=== PATIENT | female | born 1960 | race African-American/Black ===

== ENCOUNTER 2017-12-30 16:04 | Inpatient (IN) | payer OTHER, MEDICARE ==
--- NOTE | 2017-12-30 16:55 | ER Document Report ---
ED Medical Screen (RME) - General Chief Complaint: Probable Seizure Stated Complaint: POSSIBLE SEIZURE Time Seen by Provider: 12/30/17 16:30 TRAVEL OUTSIDE OF THE [place] IN LAST 30 DAYS: No - HPI Patient complains to provider of: Seizure Onset: Other - This 57-year-old female with a bizarre complex past medical history including stroke as well as seizures in the past and an amputation of her right lower extremity presents for evaluation of 2 seizures today with resultant inability to see out of both eyes. She denies any recent illnesses, is currently taking Tegretol for her seizures has not missed any doses according to her. Had a visual disturbance after a previous CVA back in June. - Related Data Allergies/Adverse Reactions: No Known Allergies Allergy (Verified 12/30/17 16:11) Past Medical History - Social History Chew tobacco use (# tins/day): No Frequency of alcohol use: Occasional Drug Abuse: Marijuana - Past Medical History Cardiac Medical History: Reports: Hx Hypercholesterolemia, Hx Hypertension, Hx Peripheral Vascular Disease Denies: Hx Atrial Fibrillation, Hx Congestive Heart Failure, Hx Coronary Artery Disease, Hx Heart Attack, Hx Heart Murmur Pulmonary Medical History: Denies: Hx Tuberculosis Neurological Medical History: Reports: Hx Cerebrovascular Accident, Hx Seizures Endocrine Medical History: Reports: Hx Diabetes Mellitus Type 2 Renal/ Medical History: Denies: Hx Peritoneal Dialysis Malignancy Medical History: Denies: Hx Leukemia Musculoskeltal Medical History: Reports Hx Arthritis - rheumatoid-dr. dover, Denies Hx Fibromyalgia, Denies Hx Multiple Sclerosis, Denies Hx Muscular Dystrophy Psychiatric Medical History: Denies: Hx Bipolar Disorder, Hx Dementia, Hx Depression, Hx Post Traumatic Stress Disorder, Hx Schizophrenia Traumatic Medical History: Denies: Hx Fractures Infectious Medical History: Denies: Hx HIV Past Surgical History: Reports: Hx Hysterectomy, Hx Orthopedic Surgery - 06/2010 right leg, above knee amputation. Denies: Hx Pacemaker - Immunizations Hx Diphtheria, Pertussis, Tetanus Vaccination: Yes Physical Exam - Vital signs Vitals: Temp Pulse BP Pulse Ox 98.9 F 92 170/105 H 100 12/30/17 16:14 12/30/17 16:14 12/30/17 16:14 12/30/17 16:14 Course - Re-evaluation Re-evalutation: 12/30/17 16:54 57-year-old female with a history of multiple seizures today and resultant inability to see. She is no obvious perception of confrontation, her light perception is 0. Has not history however, given the concern for potential underlying CVA or conversion will plan for workup. Patient undergo CT of the head, labs EKG etc. We will plan for further investigation and more thorough neurologic examination. I performed a rapid medical screening examination on this patient will defer further disposition determination workup and labs to next provider. - Vital Signs Vital signs: Temp Pulse Resp BP Pulse Ox 98.9 F 93 185/101 H 100 12/30/17 16:14 12/30/17 16:16 12/30/17 16:16 12/30/17 16:16 Doctor's Discharge - Discharge Referrals: JERZY GAINES MD [Primary Care Provider] - Follow up as needed
[2017-12-30 17:18] LABS: ABSOLUTE BASOPHILS # (AUTO) 0.1 10^3/uL (0.0-0.2); ABSOLUTE EOSINOPHILS # (AUTO) 0.1 10^3/uL (0.0-0.6); ABSOLUTE LYMPHOCYTES (AUTO) 4.1 10^3/uL (0.5-4.7); ABSOLUTE MONOCYTES (AUTO) 0.6 10^3/uL (0.1-1.4); ABSOLUTE NEUT (AUTO) 4.7 10^3/uL (1.7-8.2); BASOPHILS % (AUTO) 1.1 % (0-2); HEMATOCRIT 43.6 % (36.0-47.0); HEMOGLOBIN 14.5 g/dL (12.0-15.5); LYMPHOCYTES % (AUTO) 43.1 % (13-45); MEAN CORPUSCULAR HEMOGLOBIN 27.2 pg (27.0-33.4); MEAN CORPUSCULAR HGB CONC 33.2 g/dL (32.0-36.0); MEAN CORPUSCULAR VOLUME 82 fl (80-97); MONOCYTES % (AUTO) 6.2 % (3-13); PLATELET COUNT 295 10^3/uL (150-450); RED BLOOD COUNT 5.33 10^6/uL (3.72-5.28); RED CELL DISTRIBUTION WIDTH 14.4 % (11.5-14.0); SEGMENTED NEUTROPHILS % (AUTO) 48.6 % (42-78); TOTAL CELLS COUNTED % (AUTO) 100 %; WHITE BLOOD COUNT 9.6 10^3/uL (4.0-10.5)
--- NOTE | 2017-12-30 17:18 | RADIOLOGY REPORT (SQ) ---
EXAM DESCRIPTION: CT HEAD WITHOUT COMPLETED DATE/TIME: 12/30/2017 4:54 pm REASON FOR STUDY: visual disturbance COMPARISON: 02/05/2016 TECHNIQUE: Axial images acquired through the brain without intravenous contrast. Images reviewed wi th bone, brain and subdural windows. Additional sagittal and coronal reconstructions were generated. Images stored on PACS. All CT scanners at this facility use dose modulation, iterative reconstruction, and/or weight based d osing when appropriate to reduce radiation dose to as low as reasonably achievable (ALARA). [facility]: Dose Right [facility]: CareDose [facility]: Dose Right [facility]: Teradose 4D [facility]: [employer] RADIATION DOSE: CT Rad equipment meets quality standard of care and radiation dose reduction techniq ues were employed. CTDIvol: 53.2 mGy. DLP: 1044 mGy-cm. mGy. LIMITATIONS: None. FINDINGS: VENTRICLES: Normal size and contour. CEREBRUM: Large old infarct right occipital region. Interval development of a 3 cm area decreased at tenuation medial aspect of the left occipital lobe not present on the previous CT scan of 2016 and ma y represent an evolving infarct. No intracranial hemorrhage or mass-effect. CEREBELLUM: No masses. No hemorrhage. No alteration of density. No evidence for acute infarction. EXTRAAXIAL SPACES: No fluid collections. No masses. ORBITS AND GLOBE: No intra- or extraconal masses. Normal contour of globe without masses. CALVARIUM: No fracture. PARANASAL SINUSES: No fluid or mucosal thickening. SOFT TISSUES: No mass or hematoma. OTHER: No other significant finding. IMPRESSION: 3 cm area of slightly decreased attenuation involving the medial aspect of the left occi pital lobe that may represent an evolving infarct particularly when correlated with clinical informa tion. Stable large right occipital lobe infarct. EVIDENCE OF ACUTE STROKE: NO. COMMENT: Quality ID # [id number]: Final reports with documentation of one or more dose reduction techniques (e.g., Automated exposure control, adjustment of the mA and/or kV according to patient size, use of iterative reconstruction technique) TECHNICAL DOCUMENTATION: JOB ID: [id number] [employer]- All Rights Reserved Reading location - IP/workstation name: [email or web address]
[2017-12-30 17:37] LABS: ALANINE AMINOTRANSFERASE 31 U/L (9-52); ALBUMIN 4.5 g/dL (3.5-5.0); ALKALINE PHOSPHATASE 98 U/L (38-126); ANION GAP 13 (5-19); ASPARTATE AMINO TRANSFERASE 26 U/L (14-36); BILIRUBIN,DIRECT 0.2 mg/dL (0.0-0.4); BILIRUBIN,TOTAL 0.5 mg/dL (0.2-1.3); BLOOD UREA NITROGEN 11 mg/dL (7-20); CALCIUM 10.1 mg/dL (8.4-10.2); CARBON DIOXIDE 30 mmol/L (22-30); CHLORIDE 98 mmol/L (98-107); GLUCOSE 233 mg/dL (75-110); POTASSIUM 3.3 mmol/L (3.6-5.0); SODIUM 140.8 mmol/L (137-145); TOTAL PROTEIN 7.4 g/dL (6.3-8.2)
--- NOTE | 2017-12-30 18:15 | EKG REPORT ---
SEVERITY:- ABNORMAL ECG - SINUS RHYTHM LEFT ANTERIOR FASCICULAR BLOCK LEFT VENTRICULAR HYPERTROPHY ANTERIOR Q WAVES, POSSIBLY DUE TO LVH : Confirmed by: Marlen Mendoza MD 30-Dec-2017 18:14:11
[2017-12-30] MEDS ORDERED: NORMAL SALINE 1000 ML 1,000 ML IV ONE (18:54)
[2017-12-30 19:23] LABS: INTERNATIONAL RATION (INR) 0.79; PROTHROMBIN TIME 11.4 SEC (11.4-15.4)
[2017-12-30 19:24] LABS: PARTIAL THROMBOPLASTIN TIME 27.6 SEC (23.5-35.8)
[2017-12-30 20:20] LABS: APPEARANCE,URINE SLIGHTLY-CLOUDY; BILIRUBIN,URINE NEGATIVE (NEGATIVE); COLOR,URINE YELLOW; GLUCOSE, URINE 50 mg/dL (NEGATIVE); KETONES,URINE TRACE mg/dL (NEGATIVE); LEUKOCYTE ESTERASE,URINE NEGATIVE (NEGATIVE); NITRITE,URINE NEGATIVE (NEGATIVE); PROTEIN,URINE NEGATIVE (NEGATIVE); URINE SPECIFIC GRAVITY 1.024
[2017-12-30] MEDS ORDERED: ASPIRIN 81 MG TABLET, CHEWABLE PO ONE (20:26)
[2017-12-30] MEDS ORDERED: HYDRALAZINE HCL 50 MG TABLET PO ONE (20:26)
[2017-12-30] MEDS ORDERED: AMLODIPINE BESYLATE 5 MG TABLET PO ONE (20:30)
[2017-12-30 20:38] LABS: URINE AMPHETAMINES SCREEN NEGATIVE; URINE BARBITURATES SCREEN NEGATIVE; URINE BENZODIAZEPINES SCREEN NEGATIVE; URINE COCAINE SCREEN NEGATIVE; URINE MARIJUANA (THC) SCREEN UNCONFIRMED POSITIVE; URINE METHADONE SCREEN NEGATIVE; URINE PHENCYCLIDINE SCREEN NEGATIVE
--- NOTE | 2017-12-30 20:41 | ER Document Report ---
ED General - General Chief Complaint: Probable Seizure Stated Complaint: POSSIBLE SEIZURE Time Seen by Provider: 12/30/17 16:30 TRAVEL OUTSIDE OF THE [place] IN LAST 30 DAYS: No - HPI Patient complains to provider of: Seizure loss of vision Notes: Patient coming in complaining that she had 2 seizures today. Patient does have a history of seizures along with diabetes and hypertension. Patient states she has been compliant with her medications. Patient states she has had visual disturbances ongoing for the last 24-48 hours. Patient states similar symptoms of vision loss when she had strokes in the past. Patient denies any fevers chills nausea vomiting diarrhea. Patient is resting comfortably upon my evaluation. Denies any trauma - Related Data Allergies/Adverse Reactions: No Known Allergies Allergy (Verified 12/30/17 16:11) Past Medical History - Social History Smoking Status: Never Smoker Chew tobacco use (# tins/day): No Frequency of alcohol use: Occasional Drug Abuse: Marijuana Family History: Reviewed & Not Pertinent Patient has suicidal ideation: No Patient has homicidal ideation: No - Past Medical History Cardiac Medical History: Reports: Hx Hypercholesterolemia, Hx Hypertension, Hx Peripheral Vascular Disease Denies: Hx Atrial Fibrillation, Hx Congestive Heart Failure, Hx Coronary Artery Disease, Hx Heart Attack, Hx Heart Murmur Pulmonary Medical History: Denies: Hx Tuberculosis Neurological Medical History: Reports: Hx Cerebrovascular Accident, Hx Seizures Endocrine Medical History: Reports: Hx Diabetes Mellitus Type 2 Renal/ Medical History: Denies: Hx Peritoneal Dialysis Malignancy Medical History: Denies: Hx Leukemia Musculoskeletal Medical History: Reports Hx Arthritis - rheumatoid-dr. dover, Denies Hx Fibromyalgia, Denies Hx Multiple Sclerosis, Denies Hx Muscular Dystrophy Psychiatric Medical History: Denies: Hx Bipolar Disorder, Hx Dementia, Hx Depression, Hx Post Traumatic Stress Disorder, Hx Schizophrenia Traumatic Medical History: Denies: Hx Fractures Infectious Medical History: Denies: Hx HIV Past Surgical History: Reports: Hx Hysterectomy, Hx Orthopedic Surgery - 06/2010 right leg, above knee amputation. Denies: Hx Pacemaker - Immunizations Hx Diphtheria, Pertussis, Tetanus Vaccination: Yes Hx Pneumococcal Vaccination: 03/31/14 Review of Systems - Review of Systems Constitutional: No symptoms reported EENT: Other - Vision loss Cardiovascular: No symptoms reported Respiratory: No symptoms reported Gastrointestinal: No symptoms reported Genitourinary: No symptoms reported Female Genitourinary: No symptoms reported Musculoskeletal: No symptoms reported Skin: No symptoms reported Hematologic/Lymphatic: No symptoms reported Neurological/Psychological: Seizure -: Yes All other systems reviewed and negative Physical Exam - Vital signs Vitals: Temp Pulse BP Pulse Ox 98.9 F 92 170/105 H 100 12/30/17 16:14 12/30/17 16:14 12/30/17 16:14 12/30/17 16:14 Interpretation: Normal - General General appearance: Appears well, Alert - HEENT Head: Normocephalic, Atraumatic Eyes: Normal Conjunctiva: Normal Cornea: Normal Extraocular movements intact: Yes Eyelashes: Normal Pupils: PERRL Neck: Normal Notes: Patient stating that she has had vision loss which is new for her. Patient has no blinking with threatening moves no blinking with putting my hand close or finger close to the patient's eyes or face. - Respiratory Respiratory status: No respiratory distress Chest status: Nontender Breath sounds: Normal Chest palpation: Normal - Cardiovascular Rhythm: Regular Heart sounds: Normal auscultation Murmur: No - Abdominal Inspection: Normal Distension: No distension Bowel sounds: Normal Tenderness: Nontender Organomegaly: No organomegaly - Back Back: Normal, Nontender - Extremities General upper extremity: Normal inspection, Nontender, Normal color, Normal ROM , Normal temperature General lower extremity: Nontender, Tender, Edema, Normal color, Normal strength. No: Normal inspection - bka right - Neurological Neuro grossly intact: Yes Cognition: Normal Orientation: AAOx4 Freddy Coma Scale Eye Opening: Spontaneous Freddy Coma Scale Verbal: Oriented [place] Coma Scale Motor: Obeys Commands Freddy Coma Scale Total: 15 Speech: Normal Motor strength normal: LUE, RUE, LLE, RLE Sensory: Normal - Psychological Associated symptoms: Normal affect, Normal mood - Skin Skin Temperature: Warm Skin Moisture: Dry Skin Color: Normal Course - Re-evaluation Re-evalutation: 12/31/17 02:21 CT scan shows signs of a possible acute stroke. Patient's symptoms ongoing for greater than 24 hours not a candidate for thrombolytic therapy or clot retrieval. The explained this to the patient. Patient states compliance with her medications however patient's carbamazepine level is undetectable blood pressure does not look to be very well controlled at this time. Amlodipine and hydralazine were given to the patient. Discussed with PCP states the patient has a well-known history of noncompliance of medication regimen agrees to admit the patient to the [facility] for further evaluation. - Vital Signs Vital signs: Temp Pulse Resp BP Pulse Ox 97.3 F 80 18 171/87 H 100 12/30/17 22:33 12/31/17 00:00 12/31/17 00:00 12/31/17 00:00 12/31/17 00:00 - Laboratory Result Diagrams: 12/30/17 17:00 12/30/17 17:00 Laboratory results interpreted by me: 12/30/17 12/30/17 12/30/17 17:00 17:00 17:00 RBC 5.33 H RDW 14.4 H Potassium 3.3 L Glucose 233 H TSH 0.35 L Urine Glucose (UA) Urine Ketones Urine Urobilinogen Carbamazepine 12/30/17 12/30/17 19:00 20:07 RBC RDW Potassium Glucose TSH Urine Glucose (UA) 50 H Urine Ketones TRACE H Urine Urobilinogen 4.0 H Carbamazepine < 2.1 L Discharge - Discharge Clinical Impression: Acute CVA left occipital lobe, Family history of brain aneurysm, Amputation of right lower extremity below knee, Patient's noncompliance with other medical treatment and regimen Hypertension Qualifiers: Hypertension type: essential hypertension Qualified Code(s): I10 - Essential ( primary) hypertension Diabetes Qualifiers: Diabetes mellitus type: type 1 Diabetes mellitus complication status: without complication Qualified Code(s): E10.9 - Type 1 diabetes mellitus without complications Condition: Good Disposition: ADMITTED INPATIENT Admitting Provider: [facility] Admitted: [facility]
--- NOTE | 2017-12-30 21:23 | RADIOLOGY REPORT (SQ) ---
PROCEDURE: XR CHEST 1 VIEW HISTORY: cva COMPARISON: None TECHNIQUE: The study was done on 12/30/2017 at 9:07 PM Single projection of the chest was done. FINDINGS: Atherosclerotic changes are seen in the thoracic aorta . There are no discrete airspace infiltrates, pneumothoraces or pleural effusions. The pulmonary vascularity is normal. The cardiomediastinal silhouette is otherwise unremarkable. IMPRESSION: There is no acute pleural-parenchymal process seen in the imaged lung albarado. Location of Interpretation: [facility]
[2017-12-30] MEDS ORDERED: LABETALOL HCL INJ 20 MG/4 ML DISP.SYRIN IV PRN (21:33)
[2017-12-30] MEDS ORDERED: GLUCAGON,HUMAN RECOMB 1 MG INJ IM PRN (21:48)
[2017-12-30] MEDS ORDERED: DEXTROSE 50%-WATER 25 GM/50 ML DISP.SYRIN IV PRN ×2 (21:48)
[2017-12-30] MEDS ORDERED: DEXTROSE 40% GEL 15 GM TUBE PO PRN ×2 (21:48)
[2017-12-30 21:56] LABS: LIPASE 250.8 U/L (23-300)
[2017-12-30] MEDS ORDERED: ATORVASTATIN CALCIUM 80 MG TABLET PO SCH (22:00)
[2017-12-30 22:14] LABS: FREE T4 (FREE THYROXINE) 1.24 ng/dL (0.78-2.19)
[2017-12-30 22:28] LABS: THYROID STIMULATING HORMONE 0.35 uIU/mL (0.47-4.68)
[2017-12-30] MEDS: ENOXAPARIN SODIUM INJ 40 MG/0.4 ML DISP.SYRIN SUBCUT SCH (22:53)
[2017-12-30] MEDS: ASPIRIN/DIPYRIDAMOLE 25-200 MG 1 CAP.SR CPMP.12HR PO SCH (22:53)
[2017-12-31] MEDS ORDERED: POTASSIUM CHLORIDE 10 MEQ CAPSULE.ER PO ONE (00:05)
[2017-12-31] MEDS ORDERED: DIPHENOXYLATE HCL/ATROP SULF 2.5-0.025 MG TABLET PO PRN (01:10)
[2017-12-31] MEDS ORDERED: OXYCODONE-ACETAMINOPHEN 5-325 MG TABLET PO PRN (01:10)
[2017-12-31 01:14] LABS: CREATINE KINASE MB 0.92 ng/mL (<4.55); TROPONIN I 0.013 ng/mL
[2017-12-31 06:27] LABS: HEMATOCRIT 41.4 % (36.0-47.0); HEMOGLOBIN 13.6 g/dL (12.0-15.5); MEAN CORPUSCULAR HEMOGLOBIN 26.9 pg (27.0-33.4); MEAN CORPUSCULAR HGB CONC 32.9 g/dL (32.0-36.0); MEAN CORPUSCULAR VOLUME 82 fl (80-97); PLATELET COUNT 236 10^3/uL (150-450); RED BLOOD COUNT 5.07 10^6/uL (3.72-5.28); RED CELL DISTRIBUTION WIDTH 14.4 % (11.5-14.0); WHITE BLOOD COUNT 12.6 10^3/uL (4.0-10.5)
[2017-12-31 06:41] LABS: ANION GAP 10 (5-19); BLOOD UREA NITROGEN 12 mg/dL (7-20); CALCIUM 9.5 mg/dL (8.4-10.2); CARBON DIOXIDE 27 mmol/L (22-30); CHLORIDE 103 mmol/L (98-107); CREATINE KINASE 788 U/L (30-135); GLUCOSE 254 mg/dL (75-110); POTASSIUM 3.4 mmol/L (3.6-5.0); SODIUM 139.6 mmol/L (137-145)
--- NOTE | 2017-12-31 06:47 | EKG REPORT ---
SEVERITY:- ABNORMAL ECG - SINUS TACHYCARDIA LEFT ANTERIOR FASCICULAR BLOCK LVH WITH SECONDARY REPOLARIZATION ABNORMALITY ANTERIOR Q WAVES, POSSIBLY DUE TO LVH BORDERLINE PROLONGED QT INTERVAL : Confirmed by: Marlen Mendoza MD 31-Dec-2017 06:46:39
[2017-12-31 06:53] LABS: CREATINE KINASE MB 1.16 ng/mL (<4.55); TROPONIN I 0.036 ng/mL
[2017-12-31] MEDS: SITAGLIPTIN PHOSPHATE 50 MG TABLET PO SCH ×2 (08:25→17:07)
[2017-12-31] MEDS: INSULIN REG, HUMAN 100 UNIT/ML 3 ML VIAL (PYX) SUBCUT PRN ×3 (08:25→17:07)
[2017-12-31] MEDS: PIOGLITAZONE HCL 15 MG TABLET PO SCH (08:25)
[2017-12-31] MEDS: METFORMIN HCL 500 MG TABLET PO SCH ×2 (08:25→17:07)
[2017-12-31] MEDS ORDERED: LOSARTAN POTASSIUM 50 MG TABLET PO SCH (10:00)
[2017-12-31] MEDS ORDERED: CLOPIDOGREL BISULFATE 75 MG TABLET PO SCH (10:00)
[2017-12-31] MEDS ORDERED: ASPIRIN 81 MG TABLET, CHEWABLE PO SCH (10:00)
[2017-12-31] MEDS: HYDRALAZINE HCL 50 MG TABLET PO SCH ×3 (10:05→22:56)
[2017-12-31] MEDS: METOPROLOL SUCCINATE 50 MG TAB.SR.24H PO SCH (10:09)
[2017-12-31] MEDS: AMLODIPINE BESYLATE 10 MG TABLET PO SCH (10:09)
[2017-12-31] MEDS: HYDROCHLOROTHIAZIDE 25 MG TABLET PO SCH (10:09)
[2017-12-31] MEDS: LOSARTAN POTASSIUM 50 MG TABLET PO SCH (10:09)
[2017-12-31] MEDS: ASPIRIN/DIPYRIDAMOLE 25-200 MG 1 CAP.SR CPMP.12HR PO SCH ×2 (10:30→22:55)
[2017-12-31] MEDS: OXCARBAZEPINE 150 MG TABLET PO SCH ×2 (10:31→17:07)
[2017-12-31] MEDS: ENOXAPARIN SODIUM INJ 40 MG/0.4 ML DISP.SYRIN SUBCUT SCH (10:31)
[2017-12-31] MEDS: CEPHALEXIN 500 MG CAPSULE PO SCH ×2 (10:38→17:07)
--- NOTE | 2017-12-31 11:51 | RADIOLOGY REPORT (SQ) ---
EXAM DESCRIPTION: MRI HEAD WITHOUT COMPLETED DATE/TIME: 12/31/2017 11:28 am REASON FOR STUDY: cva COMPARISON: 03/23/2014 TECHNIQUE: Multiplanar imaging includes non-contrasted T1, T2, FLAIR, and diffusion with ADC map seq uences. Images stored on PACS. LIMITATIONS: None. 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 CSF SPACES: Atrophy induced prominence of ventricles and CSF spaces. CEREBRUM: Old right occipital infarct. Smaller acute left occipital infarct. No evidence of hemorrh age or significant mass effect. No evidence of hemorrhage, mass, or extraaxial fluid collection. POSTERIOR FOSSA: No signal alteration. No hemorrhage. No edema, masses or mass effect. Internal edin tory canals, cerebello-pontine angles, mastoids normal. DIFFUSION IMAGING: Positive diffusion left occipital lobe. ORBITS: No masses. Globes normal. PARANASAL SINUSES: No fluid levels. Mucosa normal. OTHER: No other significant finding. IMPRESSION: Acute, nonhemorrhagic infarct left occipital lobe. EVIDENCE OF ACUTE STROKE: YES. 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 TECHNICAL DOCUMENTATION: JOB ID: [id number] [employer]- All Rights Reserved Reading location - IP/workstation name: [email or web address]
[2017-12-31 14:06] LABS: CREATINE KINASE MB 1.3 ng/mL (<4.55); TROPONIN I 0.027 ng/mL
--- NOTE | 2017-12-31 20:27 | PDOC H&P ---
History of Present Illness Admission Date/PCP: 12/30/17 20:45 JERZY GAINES MD History of Present Illness: KRISTINE HERNANDEZ is a 57 year old female, She has a history of CVA that involved the right occipital lobe associated with loss of vision couple of years ago, this patient is extremely noncompliant, she has not been to the office for follow-up in 2 years, she has a history of poorly controlled hypertension, type 2 diabetes mellitus,The hemoglobin A1c is 9.6, a reflection of poorly controlled diabetes mellitus. She came to the emergency room for evaluation of visual loss, in the emergency room CT head was done, it demonstrated acute left occipital infarct, there is old right occipital infarct.There is right below-knee amputation.She has old right occipital infarct Past Medical History Cardiac Medical History: Reports: Hyperlipidema, Hypertension, Peripheral Vascular Disease Neurological Medical History: Reports: Seizures Endocrine Medical History: Reports: Diabetes Mellitus Type 2 Musculoskeltal Medical History: Reports: Arthritis - rheumatoid-dr. dover Past Surgical History Past Surgical History: Reports: Amputation - right above the knee, Hysterectomy , Orthopedic Surgery - 06/2010 right leg, above knee amputation Social History Smoking Status: Never Smoker Frequency of Alcohol Use: Rare Hx Recreational Drug Use: Yes Drugs: Marijuana Hx Prescription Drug Abuse: No - Advance Directive Resuscitation Status: Full Code Family History Family History: Reviewed & Not Pertinent Parental Family History Reviewed: Yes Children Family History Reviewed: Yes Sibling(s) Family History Reviewed.: Yes Medication/Allergy Home Medications: Amlodipine Besylate [Norvasc 10 mg Tablet] 10 mg PO DAILY 12/31/17 Aspirin [Adult Low Dose Aspirin EC] 81 mg PO DAILY 12/31/17 Atenolol [Tenormin 50 mg Tablet] 50 mg PO DAILY 12/31/17 Atorvastatin Calcium [Lipitor 80 mg Tablet] 80 mg PO QHS 12/31/17 Clopidogrel Bisulfate [Plavix 75 mg Tablet] 75 mg PO DAILY 12/31/17 Diphenoxylate HCl/Atropine [Lomotil 2.5-0.025 mg Tablet] 1 tab PO QIDP PRN 12/31 Hydralazine HCl 100 mg PO BID 12/31/17 Metformin HCl [Glucophage 500 mg Tablet] 1,000 mg PO BID 12/31/17 Metoprolol Succinate [Toprol XL 200 mg Tablet] 200 mg PO DAILY 12/31/17 Olmesartan/Hydrochlorothiazide [Benicar Hct 40-25 mg Tablet] 1 tab PO DAILY 02/07 Oxcarbazepine [Trileptal] 300 mg PO BID MDD TAKE WITH 600MG 12/31/17 Oxcarbazepine [Trileptal] 600 mg PO BID MDD TAKE WITH 300MG 12/31/17 Pioglitazone HCl [Actos 15 mg Tablet] 15 mg PO DAILY 12/31/17 Sitagliptin Phosphate [Januvia] 100 mg PO DAILY 12/31/17 Allergies/Adverse Reactions: No Known Allergies Allergy (Verified 12/30/17 16:11) Review of Systems Constitutional: ABSENT: chills, fever(s), headache(s), weight gain, weight loss Eyes: PRESENT: visual disturbances Ears: ABSENT: hearing changes Cardiovascular: ABSENT: chest pain, dyspnea on exertion, edema, orthropnea, palpitations Respiratory: ABSENT: cough, hemoptysis Gastrointestinal: ABSENT: abdominal pain, constipation, diarrhea, hematemesis, hematochezia, nausea, vomiting Genitourinary: ABSENT: dysuria, hematuria Musculoskeletal: ABSENT: joint swelling Integumentary: ABSENT: rash, wounds Neurological: ABSENT: abnormal gait, abnormal speech, confusion, dizziness, focal weakness, syncope Psychiatric: ABSENT: anxiety, depression, homidical ideation, suicidal ideation Endocrine: ABSENT: cold intolerance, heat intolerance, menstrual abnormalities, polydipsia, polyuria Hematologic/Lymphatic: ABSENT: easy bleeding, easy bruising, lymphadenopathy Physical Exam Vital Signs: Temp Pulse Resp BP Pulse Ox 98.9 F 109 H 16 157/93 H 100 12/31/17 15:46 12/31/17 16:00 12/31/17 16:00 12/31/17 16:00 12/31/17 16:00 Intake & Output 12/30/17 12/31/17 01/01/18 06:59 06:59 06:59 Intake Total 1000 888 Output Total 650 100 Balance 350 788 Weight 75.5 kg General appearance: PRESENT: no acute distress, well-developed, well-nourished Head exam: PRESENT: atraumatic, normocephalic Eye exam: PRESENT: conjunctiva pink, EOMI, PERRLA Ear exam: PRESENT: normal external ear exam Mouth exam: PRESENT: moist, tongue midline Neck exam: PRESENT: full ROM Respiratory exam: PRESENT: clear to auscultation sheri Cardiovascular exam: PRESENT: RRR, +S1, +S2 GI/Abdominal exam: PRESENT: normal bowel sounds, soft Rectal exam: PRESENT: deferred Extremities exam: PRESENT: right BKA Neurological exam: PRESENT: alert, other Skin exam: PRESENT: dry, intact, warm. ABSENT: cyanosis, rash Results Laboratory Results: 12/31/17 06:20 12/31/17 06:20 12/31/17 12/31/17 06:20 06:20 WBC 12.6 H RBC 5.07 Hgb 13.6 Hct 41.4 MCV 82 MCH 26.9 L MCHC 32.9 RDW 14.4 H Plt Count 236 Sodium 139.6 Potassium 3.4 L Chloride 103 Carbon Dioxide 27 Anion Gap 10 BUN 12 Creatinine 0.50 L Est GFR ( Amer) > 60 Est GFR (Non-Af Amer) > 60 Glucose 254 H Calcium 9.5 Magnesium 1.6 12/31/17 12/31/17 12/31/17 00:16 00:16 06:20 Creatine Kinase 920 H 788 H CK-MB (CK-2) 0.92 Troponin I 0.013 12/31/17 12/31/17 12/31/17 06:20 13:09 13:09 Creatine Kinase 611 H CK-MB (CK-2) 1.16 1.30 Troponin I 0.036 0.027 Impressions: Head CT 12/30/17 16:41 IMPRESSION: 3 cm area of slightly decreased attenuation involving the medial aspect of the left occipital lobe that may represent an evolving infarct particularly when correlated with clinical information. Stable large right occipital lobe infarct. EVIDENCE OF ACUTE STROKE: NO. Chest X-Ray 12/30/17 20:39 IMPRESSION: There is no acute pleural-parenchymal process seen in the imaged lung albarado. Location of Interpretation: [facility]iology Head MRI 12/31/17 00:00 IMPRESSION: Acute, nonhemorrhagic infarct left occipital lobe. EVIDENCE OF ACUTE STROKE: YES. 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 Is this a current diagnosis for this admission?: Yes Plan: She has cortical blindness,, she has a history of cortical blindness when she sustained stroke of the right occipital lobe years ago, she was able to regained vision back at the time (4) Type 2 diabetes mellitus Qualifiers: Diabetes mellitus [facility] insulin use: unspecified technician terminal and repeater insulin use status Diabetes mellitus complication status: with neurologic complications Diabetes mellitus complication detail: with polyneuropathy Qualified Code(s): E11.42 - Type 2 diabetes mellitus with diabetic polyneuropathy Is this a current diagnosis for this admission?: Yes Plan: Patient is extremely noncompliant (5) Hypertensive emergency Is this a current diagnosis for this admission?: Yes Plan: We will allow for permissive hypertension in the first 24 hours unless blood pressure is more than 240 systolic
[2017-12-31] MEDS ORDERED: (PENDING PHARMACY ID) (Metoprolol Succinate [Toprol Xl 200 Mg Tablet] 200 MG) PO SCH (20:30)
[2017-12-31] MEDS ORDERED: (PENDING PHARMACY ID) (Hydralazine Hcl [Hydralazine Hcl] 100 MG) PO SCH (20:30)
[2017-12-31] MEDS ORDERED: (PENDING PHARMACY ID) (Oxcarbazepine [Trileptal] 600 MG) PO SCH (20:30)
[2017-12-31] MEDS ORDERED: (PENDING PHARMACY ID) (Olmesartan/Hydrochlorothiazide [Benicar Hct 40-25 Mg Tablet] 1 TAB) PO SCH (20:30)
[2017-12-31] MEDS ORDERED: PIOGLITAZONE HCL 15 MG TABLET PO SCH (20:30)
[2017-12-31] MEDS ORDERED: (PENDING PHARMACY ID) (Oxcarbazepine [Trileptal] 300 MG) PO SCH (20:30)
--- NOTE | 2017-12-31 20:37 | PDOC PROGRESS REPORT ---
Subjective Progress Note for:: 12/31/17 Subjective:: Patient seen by the bedside, she has loss of vision Reason For Visit: ACUTE CVA, NON COMPLIANCE, LAST OFFICE VISIT Physical Exam Vital Signs: Temp Pulse Resp BP Pulse Ox 98.9 F 109 H 16 157/93 H 100 12/31/17 15:46 12/31/17 16:00 12/31/17 16:00 12/31/17 16:00 12/31/17 16:00 Intake & Output 12/30/17 12/31/17 01/01/18 06:59 06:59 06:59 Intake Total 1000 888 Output Total 650 100 Balance 350 788 Weight 75.5 kg General appearance: PRESENT: no acute distress Eye exam: PRESENT: PERRLA Respiratory exam: PRESENT: clear to auscultation sheri Cardiovascular exam: PRESENT: +S1, +S2 GI/Abdominal exam: PRESENT: soft Neurological exam: PRESENT: alert, CN II-XII grossly intact Results Laboratory Results: 12/31/17 06:20 12/31/17 06:20 12/31/17 12/31/17 06:20 06:20 WBC 12.6 H RBC 5.07 Hgb 13.6 Hct 41.4 MCV 82 MCH 26.9 L MCHC 32.9 RDW 14.4 H Plt Count 236 Sodium 139.6 Potassium 3.4 L Chloride 103 Carbon Dioxide 27 Anion Gap 10 BUN 12 Creatinine 0.50 L Est GFR ( Amer) > 60 Est GFR (Non-Af Amer) > 60 Glucose 254 H Calcium 9.5 Magnesium 1.6 12/31/17 12/31/17 12/31/17 00:16 00:16 06:20 Creatine Kinase 920 H 788 H CK-MB (CK-2) 0.92 Troponin I 0.013 12/31/17 12/31/17 12/31/17 06:20 13:09 13:09 Creatine Kinase 611 H CK-MB (CK-2) 1.16 1.30 Troponin I 0.036 0.027 Impressions: Head CT 12/30/17 16:41 IMPRESSION: 3 cm area of slightly decreased attenuation involving the medial aspect of the left occipital lobe that may represent an evolving infarct particularly when correlated with clinical information. Stable large right occipital lobe infarct. EVIDENCE OF ACUTE STROKE: NO. Chest X-Ray 12/30/17 20:39 IMPRESSION: There is no acute pleural-parenchymal process seen in the imaged lung albarado. Location of Interpretation: [facility] Head MRI 12/31/17 00:00 IMPRESSION: Acute, nonhemorrhagic infarct left occipital lobe. EVIDENCE OF ACUTE STROKE: YES. 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
[2017-12-31] MEDS ORDERED: METFORMIN HCL 500 MG TABLET PO SCH (21:00)
[2017-12-31] MEDS ORDERED: AMLODIPINE BESYLATE 10 MG TABLET PO SCH (21:00)
[2017-12-31] MEDS ORDERED: OXCARBAZEPINE 150 MG TABLET PO SCH ×2 (22:00)
[2017-12-31] MEDS ORDERED: ATORVASTATIN CALCIUM 80 MG TABLET PO SCH (22:00)
[2017-12-31] MEDS: ATORVASTATIN CALCIUM 80 MG TABLET PO SCH (22:56)
[2017-12-31] MEDS: ATENOLOL 50 MG TABLET PO SCH (22:56)
--- NOTE | 2017-12-31 23:25 | XCELERA REPORT ---
[address] [address] Transthoracic Echocardiogram Report Name: KRISTINE HERNANDEZ Age: 57 yrs Gender: Female : 1960 Patient Status: Inpatient Patient Location: [address] [place] [address] Study Date: 12/31/2017 08:42 AM Procedure: A two-dimensional transthoracic echocardiogram with color flow and Doppler was performed. The study was technically difficult with many images being suboptimal in quality. Reason For Study: CVA History: CVA. Ordering Physician: JERZY GAINES Performed By: Ivory Mesa Interpretation Summary There is no obvious cardiac source of embolus noted on this transthoracic echocardiogram. Follow-up with a JANET is suggested if cardiac source is still suspected. The left ventricle is normal in size. LV EF is > than 55% Left ventricular systolic function is normal. The left ventricular wall motion is normal. There is moderate concentric left ventricular hypertrophy. The right ventricle is not well visualized secondary to technical limitations Right atrium not well visualized secondary to technical limitations The left atrial size is normal. There is no evidence of mitral valve prolapse. There is no mitral valve stenosis. There is no mitral regurgitation noted. There is no aortic valvular vegetation. There is no aortic valve stenosis There is aortic sclerosis without aortic stenosis. There is a trace amount of aortic regurgitation There is no tricuspid stenosis. There is a trace amount of tricuspid regurgitation Unable to calculate RVP due to insufficient TR jet. The pulmonic valve is not well visualized. There is no pericardial effusion. MMode/2D Measurements & Calculations RVDd: 2.5 cm LVIDd: 2.9 cm FS: 16.5 % Ao root diam: 3.1 cm IVSd: 2.6 cm LVIDs: 2.4 cm EDV(Teich): 31.1 ml Ao root area: 7.4 cm2 LVPWd: 1.9 cm ESV(Teich): 19.9 ml EF(Teich): 36.0 % Doppler Measurements & Calculations Ao V2 max: AI max perla: LV V1 max PG: PA V2 max: 234.5 cm/sec 544.2 cm/sec 30.7 mmHg 135.4 cm/sec Ao max PG: AI max P.5 mmHgLV V1 mean PG: PA max P.0 mmHg AI dec slope: 16.0 mmHg 7.3 mmHg Ao V2 mean: LV V1 max: 165.5 cm/sec 318.9 cm/sec2 277.1 cm/sec Ao mean PG: AI P1/2t: 499.8 msec LV V1 mean: 12.5 mmHg 185.7 cm/sec Ao V2 VTI: 35.9 cm LV V1 VTI: 39.9 cm Left Ventricle The left ventricle is normal in size. There is moderate concentric left ventricular hypertrophy. LV EF is > than 55%. Left ventricular systolic function is normal. LV diastolic function could not be adequately assessed due to atrial fibrilation. The left ventricular wall motion is normal. There is no thrombus. Right Ventricle The right ventricle is not well visualized secondary to technical limitations. The right ventricle is grossly normal size. Atria Right atrium not well visualized secondary to technical limitations. The left atrial size is normal. Mitral Valve There is no evidence of mitral valve prolapse. There is no vegetation seen on the mitral valve. There is no mitral valve stenosis. There is no mitral regurgitation noted. Aortic Valve There is no aortic valvular vegetation. There is no aortic valve stenosis. There is aortic sclerosis without aortic stenosis. There is a trace amount of aortic regurgitation. Tricuspid Valve There is no tricuspid stenosis. There is a trace amount of tricuspid regurgitation. Unable to calculate RVP due to insufficient TR jet. Pulmonic Valve The pulmonic valve is not well visualized. Great Vessels The aortic root is not well visualized. Effusions There is no pericardial effusion. : JERZY GAINES > Marlen Mendoza
[2018-01-01] MEDS: METFORMIN HCL 500 MG TABLET PO SCH ×2 (08:26→16:56)
[2018-01-01] MEDS: PIOGLITAZONE HCL 15 MG TABLET PO SCH (08:26)
[2018-01-01] MEDS: INSULIN REG, HUMAN 100 UNIT/ML 3 ML VIAL (PYX) SUBCUT PRN ×3 (08:27→22:17)
[2018-01-01] MEDS: LOSARTAN POTASSIUM 50 MG TABLET PO SCH (09:54)
[2018-01-01] MEDS: HYDRALAZINE HCL 50 MG TABLET PO SCH ×2 (09:54→22:15)
[2018-01-01] MEDS: SITAGLIPTIN PHOSPHATE 50 MG TABLET PO SCH (09:55)
[2018-01-01] MEDS: AMLODIPINE BESYLATE 10 MG TABLET PO SCH (09:55)
[2018-01-01] MEDS: HYDROCHLOROTHIAZIDE 25 MG TABLET PO SCH (09:55)
[2018-01-01] MEDS: ENOXAPARIN SODIUM INJ 40 MG/0.4 ML DISP.SYRIN SUBCUT SCH (09:56)
[2018-01-01] MEDS: METOPROLOL SUCCINATE 50 MG TAB.SR.24H PO SCH (09:56)
[2018-01-01] MEDS: OXCARBAZEPINE 150 MG TABLET PO SCH ×2 (09:56→23:57)
[2018-01-01] MEDS: ASPIRIN/DIPYRIDAMOLE 25-200 MG 1 CAP.SR CPMP.12HR PO SCH ×2 (09:56→22:17)
[2018-01-01] MEDS ORDERED: METOPROLOL SUCCINATE 50 MG TAB.SR.24H PO SCH (10:00)
[2018-01-01] MEDS ORDERED: LOSARTAN POTASSIUM 50 MG TABLET PO SCH (10:00)
[2018-01-01] MEDS ORDERED: HYDROCHLOROTHIAZIDE 25 MG TABLET PO SCH (10:00)
[2018-01-01] MEDS: ONDANSETRON 4 MG TAB.RAPDIS PO PRN (12:12)
--- NOTE | 2018-01-01 20:06 | PDOC PROGRESS REPORT ---
Subjective Progress Note for:: 01/01/18 Subjective:: Patient was seen by the bedside, patient spouse was in the room, she has cortical blindness with loss of vision due to acute CVA of the occipital lobe Reason For Visit: ACUTE CVA, NON COMPLIANCE, LAST OFFICE VISIT Physical Exam Vital Signs: Temp Pulse Resp BP Pulse Ox 99.4 F 81 20 88/51 L 98 01/01/18 19:22 01/01/18 19:22 01/01/18 19:22 01/01/18 19:22 01/01/18 19:22 Intake & Output 12/31/17 01/01/18 01/02/18 06:59 06:59 06:59 Intake Total 1000 888 710 Output Total 650 100 300 Balance 350 788 410 Weight 75.5 kg 69.8 kg General appearance: PRESENT: no acute distress Eye exam: PRESENT: PERRLA Respiratory exam: PRESENT: clear to auscultation sheri Cardiovascular exam: PRESENT: +S1, +S2 GI/Abdominal exam: PRESENT: soft Neurological exam: PRESENT: alert Results Laboratory Results: 12/31/17 06:20 12/31/17 06:20 12/31/17 12/31/17 12/31/17 00:16 00:16 06:20 Creatine Kinase 920 H 788 H CK-MB (CK-2) 0.92 Troponin I 0.013 12/31/17 12/31/17 12/31/17 06:20 13:09 13:09 Creatine Kinase 611 H CK-MB (CK-2) 1.16 1.30 Troponin I 0.036 0.027 Impressions: Head CT 12/30/17 16:41 IMPRESSION: 3 cm area of slightly decreased attenuation involving the medial aspect of the left occipital lobe that may represent an evolving infarct particularly when correlated with clinical information. Stable large right occipital lobe infarct. EVIDENCE OF ACUTE STROKE: NO. Chest X-Ray 12/30/17 20:39 IMPRESSION: There is no acute pleural-parenchymal process seen in the imaged lung albarado. Location of Interpretation: [facility] Head MRI 12/31/17 00:00 IMPRESSION: Acute, nonhemorrhagic infarct left occipital lobe. EVIDENCE OF ACUTE STROKE: YES. 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
[2018-01-01] MEDS: ATENOLOL 50 MG TABLET PO SCH (22:16)
[2018-01-01] MEDS: ATORVASTATIN CALCIUM 80 MG TABLET PO SCH (22:17)
[2018-01-01] MEDS ORDERED: OXCARBAZEPINE 150 MG TABLET ONE ×2 (23:39→23:52)
[2018-01-02] MEDS: LOSARTAN POTASSIUM 50 MG TABLET PO SCH (09:40)
[2018-01-02] MEDS: HYDROCHLOROTHIAZIDE 25 MG TABLET PO SCH (09:41)
[2018-01-02] MEDS: OXCARBAZEPINE 150 MG TABLET PO SCH ×2 (09:41→23:20)
[2018-01-02] MEDS: METFORMIN HCL 500 MG TABLET PO SCH ×2 (09:41→16:30)
[2018-01-02] MEDS: SITAGLIPTIN PHOSPHATE 50 MG TABLET PO SCH (09:41)
[2018-01-02] MEDS: ENOXAPARIN SODIUM INJ 40 MG/0.4 ML DISP.SYRIN SUBCUT SCH (09:42)
[2018-01-02] MEDS: ASPIRIN/DIPYRIDAMOLE 25-200 MG 1 CAP.SR CPMP.12HR PO SCH ×2 (09:42→23:21)
[2018-01-02] MEDS: METOPROLOL SUCCINATE 50 MG TAB.SR.24H PO SCH (09:42)
[2018-01-02] MEDS: INSULIN REG, HUMAN 100 UNIT/ML 3 ML VIAL (PYX) SUBCUT PRN ×2 (09:43→16:30)
[2018-01-02] MEDS: HYDRALAZINE HCL 50 MG TABLET PO SCH ×2 (09:43→23:22)
[2018-01-02] MEDS: AMLODIPINE BESYLATE 10 MG TABLET PO SCH (09:43)
[2018-01-02] MEDS: PIOGLITAZONE HCL 15 MG TABLET PO SCH (09:59)
[2018-01-02] MEDS: ONDANSETRON 4 MG TAB.RAPDIS PO PRN (11:11)
--- NOTE | 2018-01-02 14:52 | PDOC PROGRESS REPORT ---
Subjective Progress Note for:: 01/02/18 Subjective:: No chest pain or difficulty with breathing. No headache. No nausea, vomiting or abdominal pain. 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 Ear exam: PRESENT: normal external ear exam Mouth exam: PRESENT: moist Respiratory exam: PRESENT: clear to auscultation sheri Cardiovascular exam: PRESENT: RRR, +S1, +S2 Vascular exam: ABSENT: pallor GI/Abdominal exam: PRESENT: normal bowel sounds, soft. ABSENT: tenderness Extremities exam: PRESENT: right AKA, pedal edema Neurological exam: PRESENT: alert, awake, oriented to person, oriented to place , oriented to time, oriented to situation Psychiatric exam: PRESENT: appropriate affect, normal mood. ABSENT: homicidal ideation, suicidal ideation Skin exam: PRESENT: dry, warm Results Laboratory Results: 12/31/17 06:20 12/31/17 06:20 12/31/17 12/31/17 12/31/17 00:16 00:16 06:20 Creatine Kinase 920 H 788 H CK-MB (CK-2) 0.92 Troponin I 0.013 12/31/17 12/31/17 12/31/17 06:20 13:09 13:09 Creatine Kinase 611 H CK-MB (CK-2) 1.16 1.30 Troponin I 0.036 0.027 Impressions: Head CT 12/30/17 16:41 IMPRESSION: 3 cm area of slightly decreased attenuation involving the medial aspect of the left occipital lobe that may represent an evolving infarct particularly when correlated with clinical information. Stable large right occipital lobe infarct. EVIDENCE OF ACUTE STROKE: NO. Chest X-Ray 12/30/17 20:39 IMPRESSION: There is no acute pleural-parenchymal process seen in the imaged lung albarado. Location of Interpretation: [facility] MRI 12/31/17 00:00 IMPRESSION: Acute, nonhemorrhagic infarct left occipital lobe. EVIDENCE OF ACUTE STROKE: YES. 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 Assessment & Plan - Diagnosis (1) Acute ischemic left posterior cerebral artery (DIVISION PLANT ENGINEER) stroke Is this a current diagnosis for this admission?: Yes Plan: Continue current medication management. 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 (3) Diabetes mellitus Qualifiers: Diabetes mellitus type: type 2 Diabetes mellitus complication status: without complication Is this a current diagnosis for this admission?: Yes Plan: Continue current medication management. (4) Hypertension Qualifiers: Hypertension type: essential hypertension Qualified Code(s): I10 - Essential (primary) hypertension Is this a current diagnosis for this admission?: Yes Plan: D/C Atenolol. Continue other current medication management. (5) Patient's noncompliance with other medical treatment and regimen Is this a current diagnosis for this admission?: Yes Plan: Continue current medication management. 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 - Time Time Spent with patient: 25-34 minutes Medications reviewed and adjusted accordingly: Yes Anticipated discharge: Other Within: Other - Inpatient Certification Based on my medical assessment, after consideration of the patient's comorbidities, presenting symptoms, or acuity I expect that the services needed warrant INPATIENT care.: Yes I certify that my determination is in accordance with my understanding of Medicare's requirements for reasonable and necessary INPATIENT services [42 CFR 412.3e].: Yes Medical Necessity: Need Close Monitoring Due to Risk of Patient Decompensation, Need For Continuous Telemetry Monitoring, Risk of Complication if Not Cared For in Hospital Post Hospital Care: D/C Probation Supervisor Documentation - Plan Summary Plan Summary: Continue current medication management.
[2018-01-02] MEDS: ATORVASTATIN CALCIUM 80 MG TABLET PO SCH (23:21)
[2018-01-03] MEDS: ONDANSETRON 4 MG TAB.RAPDIS PO PRN ×2 (07:14→17:44)
[2018-01-03] MEDS: HYDROCHLOROTHIAZIDE 25 MG TABLET PO SCH (09:53)
[2018-01-03] MEDS: OXCARBAZEPINE 150 MG TABLET PO SCH ×2 (09:53→21:22)
[2018-01-03] MEDS: METOPROLOL SUCCINATE 50 MG TAB.SR.24H PO SCH (09:53)
[2018-01-03] MEDS: METFORMIN HCL 500 MG TABLET PO SCH ×2 (09:53→16:41)
[2018-01-03] MEDS: PIOGLITAZONE HCL 15 MG TABLET PO SCH (09:54)
[2018-01-03] MEDS: LOSARTAN POTASSIUM 50 MG TABLET PO SCH (09:54)
[2018-01-03] MEDS: SITAGLIPTIN PHOSPHATE 50 MG TABLET PO SCH (09:54)
[2018-01-03] MEDS: ASPIRIN/DIPYRIDAMOLE 25-200 MG 1 CAP.SR CPMP.12HR PO SCH ×2 (09:54→21:22)
[2018-01-03] MEDS: HYDRALAZINE HCL 50 MG TABLET PO SCH ×2 (09:54→21:22)
[2018-01-03] MEDS: AMLODIPINE BESYLATE 10 MG TABLET PO SCH (09:55)
[2018-01-03] MEDS: ENOXAPARIN SODIUM INJ 40 MG/0.4 ML DISP.SYRIN SUBCUT SCH (09:55)
--- NOTE | 2018-01-03 10:57 | PDOC PROGRESS REPORT ---
Subjective Progress Note for:: 01/03/18 Subjective:: No chest pain or difficulty with breathing. No headache. There hs been episode of nausea and vomiting earlier today that responded to oral Zofran administration. No abdominal pain. Patient expressed disappointment about her blindness. Her blood pressure remain low normal so far today with need for withhold of Hydralazine and Amlodipine over last 48 hours. 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 Ear exam: PRESENT: normal external ear exam Mouth exam: PRESENT: moist Respiratory exam: PRESENT: clear to auscultation sheri Cardiovascular exam: PRESENT: RRR, +S1, +S2 Vascular exam: ABSENT: pallor GI/Abdominal exam: PRESENT: normal bowel sounds, soft. ABSENT: tenderness Extremities exam: PRESENT: right AKA, pedal edema Neurological exam: PRESENT: alert, awake, oriented to person, oriented to place , oriented to time, oriented to situation Psychiatric exam: PRESENT: appropriate affect, normal mood. ABSENT: homicidal ideation, suicidal ideation Skin exam: PRESENT: dry, warm Results Laboratory Results: 12/31/17 06:20 12/31/17 06:20 12/31/17 12/31/17 12/31/17 00:16 00:16 06:20 Creatine Kinase 920 H 788 H CK-MB (CK-2) 0.92 Troponin I 0.013 12/31/17 12/31/17 12/31/17 06:20 13:09 13:09 Creatine Kinase 611 H CK-MB (CK-2) 1.16 1.30 Troponin I 0.036 0.027 Impressions: Head CT 12/30/17 16:41 IMPRESSION: 3 cm area of slightly decreased attenuation involving the medial aspect of the left occipital lobe that may represent an evolving infarct particularly when correlated with clinical information. Stable large right occipital lobe infarct. EVIDENCE OF ACUTE STROKE: NO. Chest X-Ray 12/30/17 20:39 IMPRESSION: There is no acute pleural-parenchymal process seen in the imaged lung albarado. Location of Interpretation: [facility] Head MRI 12/31/17 00:00 IMPRESSION: Acute, nonhemorrhagic infarct left occipital lobe. EVIDENCE OF ACUTE STROKE: YES. 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 Is this a current diagnosis for this admission?: Yes (3) Diabetes mellitus Qualifiers: Diabetes mellitus type: type 2 Diabetes mellitus complication status: without complication Is this a current diagnosis for this admission?: Yes (4) Hypertension Qualifiers: Hypertension type: essential hypertension Qualified Code(s): I10 - Essential (primary) hypertension Is this a current diagnosis for this admission?: Yes (5) Patient's noncompliance with other medical treatment and regimen Is this a current diagnosis for this admission?: Yes (6) 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 upon examination Is this a current diagnosis for this admission?: Yes - Time Time Spent with patient: 25-34 minutes Medications reviewed and adjusted accordingly: Yes Anticipated discharge: Home Within: Other - Inpatient Certification Based on my medical assessment, after consideration of the patient's comorbidities, presenting symptoms, or acuity I expect that the services needed warrant INPATIENT care.: Yes I certify that my determination is in accordance with my understanding of Medicare's requirements for reasonable and necessary INPATIENT services [42 CFR 412.3e].: Yes Medical Necessity: Need Close Monitoring Due to Risk of Patient Decompensation, Need For Continuous Telemetry Monitoring, Risk of Complication if Not Cared For in Hospital Post Hospital Care: D/C Licensed Direct Entry Midwife Documentation - Plan Summary Plan Summary: Maintain on all current medication management. Continue to hold Amlodipine and Hydralazine for sbp < 140mmHg.
[2018-01-03] MEDS: ATORVASTATIN CALCIUM 80 MG TABLET PO SCH (21:22)
[2018-01-03] MEDS: ONDANSETRON HCL INJ/PF 4 MG/2 ML SDV IV PRN (22:52)
[2018-01-04 06:33] LABS: ABSOLUTE BASOPHILS # (AUTO) 0.1 10^3/uL (0.0-0.2); ABSOLUTE LYMPHOCYTES (AUTO) 4.2 10^3/uL (0.5-4.7); ABSOLUTE MONOCYTES (AUTO) 0.5 10^3/uL (0.1-1.4); ABSOLUTE NEUT (AUTO) 5.9 10^3/uL (1.7-8.2); BASOPHILS % (AUTO) 0.6 % (0-2); EOSINOPHILS % (AUTO) 0.3 % (0-6); HEMATOCRIT 40.9 % (36.0-47.0); HEMOGLOBIN 13.6 g/dL (12.0-15.5); LYMPHOCYTES % (AUTO) 38.8 % (13-45); MEAN CORPUSCULAR HEMOGLOBIN 27.2 pg (27.0-33.4); MEAN CORPUSCULAR HGB CONC 33.2 g/dL (32.0-36.0); MEAN CORPUSCULAR VOLUME 82 fl (80-97); PLATELET COUNT 271 10^3/uL (150-450); RED CELL DISTRIBUTION WIDTH 14.7 % (11.5-14.0); SEGMENTED NEUTROPHILS % (AUTO) 55.3 % (42-78); TOTAL CELLS COUNTED % (AUTO) 100 %; WHITE BLOOD COUNT 10.7 10^3/uL (4.0-10.5)
[2018-01-04 06:52] LABS: ALANINE AMINOTRANSFERASE 30 U/L (9-52); ALKALINE PHOSPHATASE 69 U/L (38-126); ANION GAP 13 (5-19); ASPARTATE AMINO TRANSFERASE 17 U/L (14-36); BILIRUBIN,DIRECT 0.3 mg/dL (0.0-0.4); BILIRUBIN,TOTAL 0.5 mg/dL (0.2-1.3); BLOOD UREA NITROGEN 36 mg/dL (7-20); CARBON DIOXIDE 29 mmol/L (22-30); CHLORIDE 98 mmol/L (98-107); CHOLESTEROL 93.55 mg/dL (0-200); GLUCOSE 171 mg/dL (75-110); POTASSIUM 3.2 mmol/L (3.6-5.0); SODIUM 139.9 mmol/L (137-145); TOTAL PROTEIN 6.6 g/dL (6.3-8.2); TRIGLYCERIDES 120 mg/dL (<150)
[2018-01-04 07:06] LABS: DIRECT LDL < 30 mg/dL (<100)
[2018-01-04] MEDS: PIOGLITAZONE HCL 15 MG TABLET PO SCH (08:31)
[2018-01-04] MEDS: METFORMIN HCL 500 MG TABLET PO SCH ×2 (08:31→17:12)
[2018-01-04] MEDS: ONDANSETRON HCL INJ/PF 4 MG/2 ML SDV IV PRN ×2 (09:55→14:59)
[2018-01-04] MEDS: OXCARBAZEPINE 150 MG TABLET PO SCH ×2 (10:44→23:19)
[2018-01-04] MEDS: AMLODIPINE BESYLATE 10 MG TABLET PO SCH (10:48)
[2018-01-04] MEDS: LOSARTAN POTASSIUM 50 MG TABLET PO SCH (10:48)
[2018-01-04] MEDS: HYDRALAZINE HCL 50 MG TABLET PO SCH (10:49)
[2018-01-04] MEDS: METOPROLOL SUCCINATE 50 MG TAB.SR.24H PO SCH (10:49)
[2018-01-04] MEDS: ENOXAPARIN SODIUM INJ 40 MG/0.4 ML DISP.SYRIN SUBCUT SCH (10:49)
[2018-01-04] MEDS: HYDROCHLOROTHIAZIDE 25 MG TABLET PO SCH (10:49)
[2018-01-04] MEDS: ASPIRIN/DIPYRIDAMOLE 25-200 MG 1 CAP.SR CPMP.12HR PO SCH ×2 (10:49→23:19)
[2018-01-04] MEDS: SITAGLIPTIN PHOSPHATE 50 MG TABLET PO SCH (10:49)
[2018-01-04 11:32] LABS: CREATINE KINASE MB 0.66 ng/mL (<4.55); TROPONIN I 0.015 ng/mL
--- NOTE | 2018-01-04 13:34 | EKG REPORT ---
SEVERITY:- ABNORMAL ECG - SINUS RHYTHM PROBABLE LEFT ATRIAL ABNORMALITY LEFT ANTERIOR FASCICULAR BLOCK LEFT VENTRICULAR HYPERTROPHY EXTENSIVE ANTERIOR INFARCT, RECENT, CLINICAL CORRELATION NEEDED. BORDERLINE PROLONGED QT INTERVAL : Confirmed by: Heriberto Mancia MD 04-Jan-2018 13:33:44
--- NOTE | 2018-01-04 16:28 | PDOC PROGRESS REPORT ---
Subjective Progress Note for:: 01/04/18 Subjective:: No chest pain or difficulty with breathing. Her cardiac monitoring suggested ST depression on the monitor necessitating earlier 12 lead EKG that suggest anterior infarct. No acute clinical symptoms beyond her complain of nausea so far today. Her vitals remain in satisfactory range. No abdominal pain. No fever or chills. 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 Ear exam: PRESENT: normal external ear exam Mouth exam: PRESENT: moist Respiratory exam: PRESENT: clear to auscultation sheri Cardiovascular exam: PRESENT: RRR, +S1, +S2 Vascular exam: ABSENT: pallor GI/Abdominal exam: PRESENT: normal bowel sounds, soft. ABSENT: tenderness Extremities exam: PRESENT: right AKA, pedal edema Neurological exam: PRESENT: alert, awake, oriented to person, oriented to place , oriented to time, oriented to situation Psychiatric exam: PRESENT: appropriate affect, normal mood. ABSENT: homicidal ideation, suicidal ideation Skin exam: PRESENT: dry, warm Results Laboratory Results: 01/04/18 05:41 01/04/18 05:41 01/04/18 01/04/18 05:41 05:41 WBC 10.7 H RBC 5.00 Hgb 13.6 Hct 40.9 MCV 82 MCH 27.2 MCHC 33.2 RDW 14.7 H Plt Count 271 Seg Neutrophils % 55.3 Lymphocytes % 38.8 Monocytes % 5.0 Eosinophils % 0.3 Basophils % 0.6 Absolute Neutrophils 5.9 Absolute Lymphocytes 4.2 Absolute Monocytes 0.5 Absolute Eosinophils 0.0 Absolute Basophils 0.1 Sodium 139.9 Potassium 3.2 L Chloride 98 Carbon Dioxide 29 Anion Gap 13 BUN 36 H Creatinine 1.13 Est GFR ( Amer) > 60 Est GFR (Non-Af Amer) 50 L Glucose 171 H Calcium 9.0 Total Bilirubin 0.5 AST 17 ALT 30 Alkaline Phosphatase 69 Total Protein 6.6 Albumin 4.0 Triglycerides 120 Cholesterol 93.55 LDL Cholesterol Direct < 30 VLDL Cholesterol 24.0 HDL Cholesterol 43 12/31/17 12/31/17 12/31/17 00:16 00:16 06:20 Creatine Kinase 920 H 788 H CK-MB (CK-2) 0.92 Troponin I 0.013 12/31/17 12/31/17 12/31/17 06:20 13:09 13:09 Creatine Kinase 611 H CK-MB (CK-2) 1.16 1.30 Troponin I 0.036 0.027 01/04/18 01/04/18 10:21 10:21 Creatine Kinase 47 CK-MB (CK-2) 0.66 Troponin I 0.015 Impressions: Head CT 12/30/17 16:41 IMPRESSION: 3 cm area of slightly decreased attenuation involving the medial aspect of the left occipital lobe that may represent an evolving infarct particularly when correlated with clinical information. Stable large right occipital lobe infarct. EVIDENCE OF ACUTE STROKE: NO. Chest X-Ray 12/30/17 20:39 IMPRESSION: There is no acute pleural-parenchymal process seen in the imaged lung albarado. Location of Interpretation: [facility] Head MRI 12/31/17 00:00 IMPRESSION: Acute, nonhemorrhagic infarct left occipital lobe. EVIDENCE OF ACUTE STROKE: YES. 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 Is this a current diagnosis for this admission?: Yes (3) Diabetes mellitus Qualifiers: Diabetes mellitus type: type 2 Diabetes mellitus complication status: without complication Is this a current diagnosis for this admission?: Yes (4) Hypertension Qualifiers: Hypertension type: essential hypertension Qualified Code(s): I10 - Essential (primary) hypertension Is this a current diagnosis for this admission?: Yes (5) Patient's noncompliance with other medical treatment and regimen Is this a current diagnosis for this admission?: Yes (6) 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 upon examination Is this a current diagnosis for this admission?: Yes - Time Time Spent with patient: 25-34 minutes Medications reviewed and adjusted accordingly: Yes Anticipated discharge: Home with Homehealth Within: Other - Inpatient Certification Based on my medical assessment, after consideration of the patient's comorbidities, presenting symptoms, or acuity I expect that the services needed warrant INPATIENT care.: Yes I certify that my determination is in accordance with my understanding of Medicare's requirements for reasonable and necessary INPATIENT services [42 CFR 412.3e].: Yes Medical Necessity: Need Close Monitoring Due to Risk of Patient Decompensation, Need For Continuous Telemetry Monitoring, Risk of Complication if Not Cared For in Hospital Post Hospital Care: D/C Framing Inspector Documentation - Plan Summary Plan Summary: Follow up on cardiac enzymes. Continue on all current mediation management.
[2018-01-04 16:51] LABS: CREATINE KINASE MB 0.86 ng/mL (<4.55)
[2018-01-04 16:54] LABS: TROPONIN I 0.021 ng/mL
[2018-01-04] MEDS: INSULIN REG, HUMAN 100 UNIT/ML 3 ML VIAL (PYX) SUBCUT PRN ×2 (18:28→23:20)
--- NOTE | 2018-01-04 20:17 | PDOC CONSULTATION ---
Consultation Consult Date: 01/04/18 Attending physician:: JERZY GAINES Consult reason:: New EKG change History of Present Illness Admission Date/PCP: 12/30/17 20:45 JERZY GAINES MD Patient complains of: Cerebrovascular accident History of Present Illness: KRISTINE HERNANDEZ is a 57 year old female who has a history of CVA that involved the right occipital lobe associated with loss of vision couple of years ago, this patient is extremely noncompliant, she has not been to the office for follow-up in 2 years, she has a history of poorly controlled hypertension, type 2 diabetes mellitus,The hemoglobin A1c is 9.6, a reflection of poorly controlled diabetes mellitus. She came to the emergency room for evaluation of visual loss, in the emergency room CT head was done, it demonstrated acute left occipital infarct, there is old right occipital infarct.There is right below-knee amputation.She has old right occipital infarct. Patient claims that she had amputation of the right lower leg because of blood clot problem. Patient describes history of aneurysm in the brain. Patient today denied any chest pain. She was noted to have ST segment elevation on routine EKG performed this morning. The nurse got concerned therefore gave me a call. The tong setter did order cardiac enzymes which fortunately came back negative. She did have a previous echocardiogram and these results were reviewed. Past Medical History Cardiac Medical History: Reports: Hyperlipidema, Hypertension, Peripheral Vascular Disease Denies: Atrial Fibrillation, Congestive Heart Failure, Coronary Artery Disease, Myocardial Infarction, Heart Murmur Pulmonary Medical History: Denies: Tuberculosis Neurological Medical History: Reports: Seizures Endocrine Medical History: Reports: Diabetes Mellitus Type 2 Malignancy Medical History: Denies: Leukemia Musculoskeltal Medical History: Reports: Arthritis - rheumatoid-dr. dover Denies: Fibromyalgia Psychiatric Medical History: Denies: Bipolar Disorder, Dementia, Depression, Post Traumatic Stress Disorder Hematology: Denies: Anemia, Hemophilia, Sickle Cell Disease Infectious Medical History: Denies: HIV Past Surgical History Past Surgical History: Reports: Amputation - right above the knee, Hysterectomy , Orthopedic Surgery - 06/2010 right leg, above knee amputation Denies: Pacemaker Social History Information Source: Patient Smoking Status: Never Smoker Frequency of Alcohol Use: Rare Hx Recreational Drug Use: Yes Drugs: Marijuana Hx Prescription Drug Abuse: No - Advance Directive Resuscitation Status: Full Code Surrogate healthcare decision maker:: Patient's Family History Family History: Hyperlipidemia Parental Family History Reviewed: Yes Children Family History Reviewed: Yes Sibling(s) Family History Reviewed.: Yes Medication/Allergy Home Medications: Amlodipine Besylate [Norvasc 10 mg Tablet] 10 mg PO DAILY 12/31/17 Aspirin [Adult Low Dose Aspirin EC] 81 mg PO DAILY 12/31/17 Atenolol [Tenormin 50 mg Tablet] 50 mg PO DAILY 12/31/17 Atorvastatin Calcium [Lipitor 80 mg Tablet] 80 mg PO QHS 12/31/17 Clopidogrel Bisulfate [Plavix 75 mg Tablet] 75 mg PO DAILY 12/31/17 Diphenoxylate HCl/Atropine [Lomotil 2.5-0.025 mg Tablet] 1 tab PO QIDP PRN 12/31 Hydralazine HCl 100 mg PO BID 12/31/17 Metformin HCl [Glucophage 500 mg Tablet] 1,000 mg PO BID 12/31/17 Metoprolol Succinate [Toprol XL 200 mg Tablet] 200 mg PO DAILY 12/31/17 Olmesartan/Hydrochlorothiazide [Benicar Hct 40-25 mg Tablet] 1 tab PO DAILY 02/07 Oxcarbazepine [Trileptal] 300 mg PO BID MDD TAKE WITH 600MG 12/31/17 Oxcarbazepine [Trileptal] 600 mg PO BID MDD TAKE WITH 300MG 12/31/17 Pioglitazone HCl [Actos 15 mg Tablet] 15 mg PO DAILY 12/31/17 Sitagliptin Phosphate [Januvia] 100 mg PO DAILY 12/31/17 Allergies/Adverse Reactions: No Known Allergies Allergy (Verified 12/30/17 16:11) Review of Systems Review of Systems: Please see history of present illness and past medical history as wall. Constitutional: No fever or chills reported. History of chronic intermittent headache. Head : No recent head injury. Eyes: No recent eye pain, diplopia, redness, discharge, acute visual changes. Ears: No recent chronic ear pain, acute hearing loss, ear discharge. Oral cavity: No recent ulcerations, bleeding, oral cavity discomfort. Neck: No recent acute neck pain reported. Hematologic: No recent easy bruising or bleeding. Lymphatic: No recent lymph node enlargement reported. Cardiovascular system review: See history of present illness. No chest pains. Activities limited Respiratory system review: No hemoptysis or blood clots in the lungs reported. Mild Shortness of breath on exertion Gastrointestinal system review: Negative for any recent acute hematemesis, melena. Genitourinary system review: No recent acute or chronic hematuria, flank pain, UTI etc. reported. Skin system review: Negative for any recent abnormal bruising, no rash, no pruritus reported. Neurologic: History of cerebrovascular accident and previous seizure disorder. Psychologic: No history of major psychosis or major depression reported. Musculoskeletal: Minor aches and pains reported. No acute joint swelling reported. Patient is status post amputation below knee of the right lower extremity. Endocrine: No recent polyuria, polydipsia, recent heat or cold intolerance. Physical Exam Vital Signs: Temp Pulse Resp BP Pulse Ox 98.2 F 70 16 93/54 L 98 01/04/18 15:30 01/04/18 15:30 01/04/18 15:30 01/04/18 15:30 01/04/18 15:30 Intake & Output 01/03/18 01/04/18 01/05/18 06:59 06:59 06:59 Intake Total 354 1585 976 Output Total 400 Balance -46 1585 976 Weight 69.1 kg 67.2 kg Exam: GENERAL: well-nourished and in no acute distress. Alert and oriented x3 HEAD: Atraumatic, normocephalic. EYES: Marked decreased vision bilaterally with almost total blindness per patient. Extraocular movements intact, sclera anicteric, conjunctiva are normal. ENT: TMs normal, nares patent, oropharynx clear without exudates. Moist mucous membranes. No oral ulcerations or bleeding gums noted NECK: supple without lymphadenopathy. Trachea is central. No cervical or axillary lymphadenopathy noted. Carotids are 2+, JVD WNL LUNGS: Respiration seems nonlabored, no significant accessory muscle action noted. Breath sounds clear to auscultation bilaterally and equal noted. No wheezes rales or rhonchi noted. No significant dullness noted on percussion. CHEST: Palpation of the chest wall shows no significant chest wall tenderness. HEART: [place] OFFAL SEPARATOR, No PSH, 1/6 SHAKA aortic area, 1/6 carson systolic murmur mitral area, no rubs, no gallops. ABDOMEN: Soft, no significant tenderness appreciated, normoactive bowel sounds. No guarding, no rebound. No rigidity noted . No masses appreciated. EXTREMITIES: Pedal pulses are 1-2+, no calf tenderness noted. No clubbing or cyanosis. negative pedal edema noted NEUROLOGICAL: Focused neurological exam showed no significant neurologic deficit. Normal speech, full neurological exam not performed. PSYCH: Normal mood, normal affect. Judgment and insight within normal limits. SKIN: No significant ecchymosis, skin is noted to be warm. MUSCULOSKELETAL EXAM: No significant acute joint swelling noted. Status post below-knee amputation of the right lower extremity. Results Laboratory Results: 01/04/18 05:41 01/04/18 05:41 01/04/18 01/04/18 05:41 05:41 WBC 10.7 H RBC 5.00 Hgb 13.6 Hct 40.9 MCV 82 MCH 27.2 MCHC 33.2 RDW 14.7 H Plt Count 271 Seg Neutrophils % 55.3 Lymphocytes % 38.8 Monocytes % 5.0 Eosinophils % 0.3 Basophils % 0.6 Absolute Neutrophils 5.9 Absolute Lymphocytes 4.2 Absolute Monocytes 0.5 Absolute Eosinophils 0.0 Absolute Basophils 0.1 Sodium 139.9 Potassium 3.2 L Chloride 98 Carbon Dioxide 29 Anion Gap 13 BUN 36 H Creatinine 1.13 Est GFR ( Amer) > 60 Est GFR (Non-Af Amer) 50 L Glucose 171 H Calcium 9.0 Total Bilirubin 0.5 AST 17 ALT 30 Alkaline Phosphatase 69 Total Protein 6.6 Albumin 4.0 Triglycerides 120 Cholesterol 93.55 LDL Cholesterol Direct < 30 VLDL Cholesterol 24.0 HDL Cholesterol 43 12/31/17 12/31/17 12/31/17 00:16 00:16 06:20 Creatine Kinase 920 H 788 H CK-MB (CK-2) 0.92 Troponin I 0.013 12/31/17 12/31/17 12/31/17 06:20 13:09 13:09 Creatine Kinase 611 H CK-MB (CK-2) 1.16 1.30 Troponin I 0.036 0.027 01/04/18 01/04/18 01/04/18 10:21 10:21 15:56 Creatine Kinase 47 43 CK-MB (CK-2) 0.66 Troponin I 0.015 01/04/18 15:56 Creatine Kinase CK-MB (CK-2) 0.86 Troponin I 0.021 EKG Comments: EKG read read by senior actuarial analyst Dr. SMILEY, showing acute anterior [place]. However patient asymptomatic of any chest pain or shortness of breath. Recommend cardiac enzymes. Impressions: Head CT 12/30/17 16:41 IMPRESSION: 3 cm area of slightly decreased attenuation involving the medial aspect of the left occipital lobe that may represent an evolving infarct particularly when correlated with clinical information. Stable large right occipital lobe infarct. EVIDENCE OF ACUTE STROKE: NO. Chest X-Ray 12/30/17 20:39 IMPRESSION: There is no acute pleural-parenchymal process seen in the imaged lung [place]bar[place]. Location of Interpretation: [facility] Head MRI 12/31/17 00:00 IMPRESSION: Acute, nonhemorrhagic infarct left occipital lobe. EVIDENCE OF ACUTE STROKE: YES. 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 Assessment & Plan - Diagnosis (1) Abnormal electrocardiogram Is this a current diagnosis for this admission?: Yes (2) Acute ischemic left posterior cerebral artery (MINE EXPLORATION ENGINEER) stroke Is this a current diagnosis for this admission?: Yes (3) Diabetes mellitus Qualifiers: Diabetes mellitus type: type 2 Diabetes mellitus complication status: with unspecified complications Is this a current diagnosis for this admission?: Yes (4) Hypertension Qualifiers: Hypertension type: essential hypertension Qualified Code(s): I10 - Essential (primary) hypertension Is this a current diagnosis for this admission?: Yes (5) Type 2 diabetes mellitus Qualifiers: Diabetes mellitus residential insulin use: unspecified residential insulin use status Diabetes mellitus complication status: with neurologic complications Diabetes mellitus complication detail: with polyneuropathy Qualified Code(s): E11.42 - Type 2 diabetes mellitus with diabetic polyneuropathy Is this a current diagnosis for this admission?: Yes (6) Amputation of right lower extremity below knee Is this a current diagnosis for this admission?: No - Notes Notes: Abnormal electrocardiogram: Agree that patient has significantly abnormal EKG. Patient did have a previous 2D echo. This echocardiogram to be reviewed. At this point agree with obtaining cardiac enzymes. EKG changes possibly related to LVH and lead placement. May consider further evaluation with him MUGA scan, nuclear stress tests etc. when patient more stable. Acute ischemic stroke involving the posterior cerebral artery territory: Recommend antiplatelet and statin therapy. Will review previous evaluation which should have included CT angiogram of the carotids and intracranial vessels. Diabetes: This is being adequately managed by tong setter. Hypertension: Being adequately managed by tong setter. Will avoid any hypo- tension or severe hypertension. Amputation of the right lower extremity below knee: Patient describes a due to blood clot. May need to check more into it. Dr. Mendoza similar to cover from tomorrow. - Time Time Spent: 30 to 50 Minutes - CODE STATUS was discussed, patient remains full code. Surrogate decision-maker patient's . Multiple medical problems were addressed. More than 50% of the time spent coordinating care, discussing management plans with involved caregivers. Management plans discussed with involved personnels. Medical decision making was of moderate to high complexity , patient's has multiple comorbidities. Medications reviewed and adjusted accordingly: Yes
[2018-01-04] MEDS: ATORVASTATIN CALCIUM 80 MG TABLET PO SCH (23:19)
--- NOTE | 2018-01-05 07:51 | EKG REPORT ---
SEVERITY:- ABNORMAL ECG - SINUS RHYTHM LEFT ANTERIOR FASCICULAR BLOCK LEFT VENTRICULAR HYPERTROPHY ANTERIOR Q WAVES, POSSIBLY DUE TO LVH ABNORMAL T, CONSIDER ISCHEMIA, LATERAL LEADS BORDERLINE PROLONGED QT INTERVAL : Confirmed by: Heriberto Mancia MD 05-Jan-2018 07:50:51
[2018-01-05] MEDS: HYDROCHLOROTHIAZIDE 25 MG TABLET PO SCH (09:28)
[2018-01-05] MEDS: PIOGLITAZONE HCL 15 MG TABLET PO SCH (09:30)
[2018-01-05] MEDS: ASPIRIN/DIPYRIDAMOLE 25-200 MG 1 CAP.SR CPMP.12HR PO SCH ×2 (09:30→21:36)
[2018-01-05] MEDS: METFORMIN HCL 500 MG TABLET PO SCH ×2 (09:30→15:57)
[2018-01-05] MEDS: METOPROLOL SUCCINATE 50 MG TAB.SR.24H PO SCH (09:31)
[2018-01-05] MEDS: ENOXAPARIN SODIUM INJ 40 MG/0.4 ML DISP.SYRIN SUBCUT SCH (09:31)
[2018-01-05] MEDS: AMLODIPINE BESYLATE 10 MG TABLET PO SCH (09:31)
[2018-01-05] MEDS: LOSARTAN POTASSIUM 50 MG TABLET PO SCH (09:31)
[2018-01-05] MEDS: SITAGLIPTIN PHOSPHATE 50 MG TABLET PO SCH (09:31)
[2018-01-05] MEDS: OXCARBAZEPINE 150 MG TABLET PO SCH ×2 (09:32→21:37)
[2018-01-05] MEDS: ONDANSETRON HCL INJ/PF 4 MG/2 ML SDV IV PRN (18:37)
--- NOTE | 2018-01-05 21:00 | PDOC PROGRESS REPORT ---
Subjective Progress Note for:: 01/05/18 Subjective:: Patient seen by the bedside, over the weekend she had EKG that demonstrated Q wave in precordial leads, cardiac enzymes negative, 2D echo did not demonstrate any aneurysm, she was seen by cardiology Reason For Visit: ACUTE CVA, NON COMPLIANCE, LAST OFFICE VISIT Physical Exam Vital Signs: Temp Pulse Resp BP Pulse Ox 98.6 F 84 16 146/78 H 99 01/05/18 11:56 01/05/18 19:00 01/05/18 15:22 01/05/18 11:56 01/05/18 11:56 Intake & Output 01/04/18 01/05/18 01/06/18 06:59 06:59 06:59 Intake Total 1585 1331 892 Balance 1585 1331 892 Weight 67.2 kg 68.6 kg General appearance: PRESENT: no acute distress Respiratory exam: PRESENT: clear to auscultation sheri Cardiovascular exam: PRESENT: +S1, +S2 GI/Abdominal exam: PRESENT: soft Neurological exam: PRESENT: alert Results Laboratory Results: 01/04/18 05:41 01/04/18 05:41 12/31/17 12/31/17 12/31/17 00:16 00:16 06:20 Creatine Kinase 920 H 788 H CK-MB (CK-2) 0.92 Troponin I 0.013 12/31/17 12/31/17 12/31/17 06:20 13:09 13:09 Creatine Kinase 611 H CK-MB (CK-2) 1.16 1.30 Troponin I 0.036 0.027 01/04/18 01/04/18 01/04/18 10:21 10:21 15:56 Creatine Kinase 47 43 CK-MB (CK-2) 0.66 Troponin I 0.015 01/04/18 15:56 Creatine Kinase CK-MB (CK-2) 0.86 Troponin I 0.021 Impressions: Head CT 12/30/17 16:41 IMPRESSION: 3 cm area of slightly decreased attenuation involving the medial aspect of the left occipital lobe that may represent an evolving infarct particularly when correlated with clinical information. Stable large right occipital lobe infarct. EVIDENCE OF ACUTE STROKE: NO. Chest X-Ray 12/30/17 20:39 IMPRESSION: There is no acute pleural-parenchymal process seen in the imaged lung albarado. Location of Interpretation: [facility] Head MRI 12/31/17 00:00 IMPRESSION: Acute, nonhemorrhagic infarct left occipital lobe. EVIDENCE OF ACUTE STROKE: YES. 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
[2018-01-05] MEDS: ATORVASTATIN CALCIUM 80 MG TABLET PO SCH (21:36)
[2018-01-06] MEDS: PIOGLITAZONE HCL 15 MG TABLET PO SCH (07:51)
[2018-01-06] MEDS: METFORMIN HCL 500 MG TABLET PO SCH ×2 (07:52→15:53)
[2018-01-06] MEDS: INSULIN REG, HUMAN 100 UNIT/ML 3 ML VIAL (PYX) SUBCUT PRN (07:52)
[2018-01-06] MEDS ORDERED: LORAZEPAM INJ 2 MG/1 ML VIAL IV PRN (08:30)
--- NOTE | 2018-01-06 10:30 | RADIOLOGY REPORT (SQ) ---
EXAM DESCRIPTION: MRA HEAD WITHOUT COMPLETED DATE/TIME: 01/06/2018 10:09 am REASON FOR STUDY: intracranial aneurysm COMPARISON: 03/23/2014. CTA head 02/05/2016. TECHNIQUE: Axial 3-D apig-aw-[id number] acquisition imaging performed through the brain in the area of t he [place]. Images reformatted using 3-D MIPS. LIMITATIONS: None. FINDINGS: SOURCE IMAGES: See separate report 12/31/2017. 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 Basilar artery and both posterior cerebral a rteries are attenuated. OTHER: No other significant finding. IMPRESSION: Attenuated basilar artery and MANAGER INSTRUMENTATION circulation. Otherwise no significant change. TECHNICAL DOCUMENTATION: JOB ID: [id number] [employer]- All Rights Reserved Reading location - IP/workstation name: [email or web address]
--- NOTE | 2018-01-06 10:56 | RADIOLOGY REPORT (SQ) ---
EXAM DESCRIPTION: MRA NECK WITHOUT COMPLETED DATE/TIME: 01/06/2018 10:09 am REASON FOR STUDY: intracranial aneurysm COMPARISON: None. TECHNIQUE: Axial 2-D volume acquisition imaging through the extracranial carotid and vertebral arter ies with reformatting using 3-D MIPS. LIMITATIONS: Patient motion. FINDINGS: RIGHT CAROTID ARTERY: Right ICA is occluded at its origin. LEFT CAROTID ARTERY: No stenosis or occlusive changes. Limited visualization of the origin. VERTEBRAL ARTERY: Left vertebral artery is patent. No flow is seen in the right vertebral artery. OTHER: No other significant finding. IMPRESSION: Chronic occlusion of the right ICA. No flow seen in the right vertebral artery, however this is possibly due to the degree of motion artifact, as flow is seen in the distal right vertebral artery on the MRA head of the same date. Correlate with extracranial carotid/vertebral Doppler if i mportant to evaluate. COMMENT: Quality ID #[id number]: Measurements of distal internal carotid diameter were used as the denomin ator for stenosis measurement. TECHNICAL DOCUMENTATION: JOB ID: [id number] [employer]- All Rights Reserved Reading location - IP/workstation name: [email or web address]
[2018-01-06] MEDS: AMLODIPINE BESYLATE 10 MG TABLET PO SCH (11:02)
[2018-01-06] MEDS: OXCARBAZEPINE 150 MG TABLET PO SCH (11:03)
[2018-01-06] MEDS: ENOXAPARIN SODIUM INJ 40 MG/0.4 ML DISP.SYRIN SUBCUT SCH (11:03)
[2018-01-06] MEDS: SITAGLIPTIN PHOSPHATE 50 MG TABLET PO SCH (11:03)
[2018-01-06] MEDS: METOPROLOL SUCCINATE 50 MG TAB.SR.24H PO SCH (11:03)
[2018-01-06] MEDS: ASPIRIN/DIPYRIDAMOLE 25-200 MG 1 CAP.SR CPMP.12HR PO SCH (11:04)
[2018-01-06 14:59] LABS: ANION GAP 15 (5-19); BLOOD UREA NITROGEN 27 mg/dL (7-20); CALCIUM 9.1 mg/dL (8.4-10.2); CARBON DIOXIDE 26 mmol/L (22-30); CHLORIDE 95 mmol/L (98-107); GLUCOSE 119 mg/dL (75-110); SODIUM 135.6 mmol/L (137-145)
[2018-01-06] MEDS: LOSARTAN POTASSIUM 50 MG TABLET PO SCH (15:34)
[2018-01-06] MEDS: HYDROCHLOROTHIAZIDE 25 MG TABLET PO SCH (15:36)
--- NOTE | 2018-01-06 15:53 | PDOC DISCHARGE SUMMARY ---
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sr PO Q12 #180 cpmp.12hr Home Medications: Amlodipine Besylate [Norvasc 10 mg Tablet] 10 mg PO DAILY 12/31/17 Diphenoxylate HCl/Atropine [Lomotil 2.5-0.025 mg Tablet] 1 tab PO QIDP PRN 12/31 Hydralazine HCl 100 mg PO BID 12/31/17 Metformin HCl [Glucophage 500 mg Tablet] 1,000 mg PO BID 12/31/17 Metoprolol Succinate [Toprol XL 200 mg Tablet] 200 mg PO DAILY 12/31/17 Olmesartan/Hydrochlorothiazide [Benicar Hct 40-25 mg Tablet] 1 tab PO DAILY 02/07 Oxcarbazepine [Trileptal] 300 mg PO BID MDD TAKE WITH 600MG 12/31/17 Oxcarbazepine [Trileptal] 600 mg PO BID MDD TAKE WITH 300MG 12/31/17 Pioglitazone HCl [Actos 15 mg Tablet] 15 mg PO DAILY 12/31/17 Sitagliptin Phosphate [Januvia] 100 mg PO DAILY 12/31/17 Aspirin/Dipyridamole [Aggrenox 25 mg/200 mg Capsule SA] 1 cap.sr PO Q12 #180 cpmp.12hr 01/06/18 Atorvastatin Calcium [Lipitor 80 mg Tablet] 80 mg PO QHS #90 tablet 01/06/18 History of Present Illness History of Present Illness: KRISTINE HERNANDEZ is a 57 year old female, She has a history of CVA that involved the right occipital lobe associated with loss of vision couple of years ago, this patient is extremely noncompliant, she has not been to the office for follow-up in 2 years, she has a history of poorly controlled hypertension, type 2 diabetes mellitus,The hemoglobin A1c is 9.6, a reflection of poorly controlled diabetes mellitus. She came to the emergency room for evaluation of visual loss, in the emergency room CT head was done, it demonstrated acute left occipital infarct, there is old right occipital infarct.There is right below-knee amputation.She has old right occipital infarct Hospital Course Hospital Course: Patient was admitted for the management of acute nonhemorrhagic left occipital lobe infarction. She presented with loss of vision of the left eye, she has a history of loss of vision of the right eye from previous right occipital lobe infarction. MRI brain was done, it demonstrated atrophy, old right occipital infarct, smaller acute left occipital infarct. No evidence of hemorrhage or mass-effect. 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 During the course of hospital stay the nurses noticed ST segment change on the telemetry monitoring, he 12-lead EKG was done subsequently that showed Q with in precordial leads, diffuse, cardiac enzymes drawn were negative x3 for acute VA, a 2D echo was done, it demonstrated preserved ejection fraction of left ventricle there was no evidence of ventricular aneurysm, the significance of the diffuse Q wave in precordial leads is not clear. Patient has history of noncompliance, she is a diabetes, she status post right leg amputation due to PAD, she is a vasculopath but she does not follow-up in the office consistently , the blood pressure when she was admitted was in the emergency range, the hemoglobin A1c was 9 suggesting poor control diabetes mellitus. Patient was managed and treated according to stroke protocol with antiplatelet adrenals, Lovenox statin therapy with atorvastatin, initially permissive hypertension was allowed in 24 hours post acute infarction, subsequently blood pressure control was achieved, she required multiple medications to achieve control the blood pressure. She is not particularly a good candidate for vascular intervention at this point if what she would need 6 months of none intervention post acute CVA. She will be discharged home today, she may need home health because now she is blind in both eyes, she has cortical blindness, compliance with medication is going to be a challenge in this patient Physical Exam Vital Signs: Temp Pulse Resp BP Pulse Ox 98.4 F 80 16 139/90 H 96 01/06/18 15:38 01/06/18 15:38 01/06/18 15:38 01/06/18 15:38 01/06/18 15:38 Intake & Output 01/05/18 01/06/18 01/07/18 06:59 06:59 06:59 Intake Total 1331 892 240 Output Total 0 Balance 1331 892 240 Weight 68.6 kg 68.6 kg General appearance: PRESENT: no acute distress Head exam: PRESENT: atraumatic, normocephalic Ear exam: PRESENT: normal external ear exam Neck exam: PRESENT: full ROM Respiratory exam: PRESENT: clear to auscultation sheri Cardiovascular exam: PRESENT: RRR, +S1, +S2 Vascular exam: PRESENT: normal capillary refill GI/Abdominal exam: PRESENT: normal bowel sounds, soft Rectal exam: PRESENT: deferred Extremities exam: PRESENT: right AKA Neurological exam: PRESENT: alert, other - Visual blindness Skin exam: PRESENT: dry, intact, warm Results Laboratory Results: 01/04/18 05:41 01/06/18 13:40 01/06/18 13:40 Sodium 135.6 L Potassium 3.0 L* Chloride 95 L Carbon Dioxide 26 Anion Gap 15 BUN 27 H Creatinine 0.99 Est GFR ( Amer) > 60 Est GFR (Non-Af Amer) 58 L Glucose 119 H Calcium 9.1 12/31/17 12/31/17 12/31/17 00:16 00:16 06:20 Creatine Kinase 920 H 788 H CK-MB (CK-2) 0.92 Troponin I 0.013 12/31/17 12/31/17 12/31/17 06:20 13:09 13:09 Creatine Kinase 611 H CK-MB (CK-2) 1.16 1.30 Troponin I 0.036 0.027 10/15/18 10/15/18 10/15/18 10:21 10:21 15:56 Creatine Kinase 47 43 CK-MB (CK-2) 0.66 Troponin I 0.015 01/04/18 15:56 Creatine Kinase CK-MB (CK-2) 0.86 Troponin I 0.021 Impressions: Head CT 12/30/17 16:41 IMPRESSION: 3 cm area of slightly decreased attenuation involving the medial aspect of the left occipital lobe that may represent an evolving infarct particularly when correlated with clinical information. Stable large right occipital lobe infarct. EVIDENCE OF ACUTE STROKE: NO. Chest X-Ray 12/30/17 20:39 IMPRESSION: There is no acute pleural-parenchymal process seen in the imaged lung albarado. Location of Interpretation: [facility] Head MRI 12/31/17 00:00 IMPRESSION: Acute, nonhemorrhagic infarct left occipital lobe. EVIDENCE OF ACUTE STROKE: YES. LEFT MAINSPRING STRIP GAUGER. Brain MRI with MRA 01/06/18 00:00 IMPRESSION: Attenuated basilar artery and MAINSPRING STRIP GAUGER circulation. Otherwise no significant change. Neck MRA 01/06/18 00:00 IMPRESSION: Chronic occlusion of the right ICA. No flow seen in the right vertebral artery, however this is possibly due to the degree of motion artifact , as flow is seen in the distal right vertebral artery on the MRA head of the same date. Correlate with extracranial carotid/vertebral Doppler if important to evaluate. Qualifiers - * PATIENT BEING DISCHARGED WITH ANY OF THE FOLLOWING DIAGNOSIS: Stroke VTE patient discharged on overlapping Therapy?: Yes Stroke Pt being discharged on Anti-thrombolytic therapy?: Yes Stroke Pt being discharged on Anti-coagulation therapy?: Yes Stroke Pt being discharged on Statins?: Yes
[2018-01-06] MEDS ORDERED: POTASSIUM CHLORIDE 10 MEQ CAPSULE.ER PO SCH (16:00)
[2018-01-06] MEDS ORDERED: POTASSIUM CHLORIDE 10 MEQ CAPSULE.ER PO ONE ×2 (16:04→17:00)
[2018-01-06 16:34] VITALS: BP 98/52
[2018-01-07] MEDS ORDERED: DIPHENOXYLATE HCL/ATROP SULF 2.5-0.025 MG TABLET PO PRN (01:10)
[2018-01-07] MEDS ORDERED: OXYCODONE-ACETAMINOPHEN 5-325 MG TABLET PO PRN (01:10)
--- NOTE | 2018-01-18 14:07 | RADIOLOGY REPORT (SQ) ---
EXAM DESCRIPTION: CAROTID DOPPLER COMPLETED DATE/TIME: 12/31/2017 10:05 am REASON FOR STUDY: cva COMPARISON: None. TECHNIQUE: Grayscale ultrasound, Doppler velocity and spectra, and color Doppler images acquired of the extra-cranial carotid and vertebral arteries. Images stored on PACS. LIMITATIONS: None. FINDINGS: RIGHT CAROTID CCA Velocities: Within normal limits. ICA Velocities Peak systolic 0.47 m/s. End diastolic 0.09 m/s. Proximal ICA/CCA peak systolic ratio 1.08. Spectra normal. No significant plaque. LEFT CAROTID CCA Velocities: Within normal limits. ICA Velocities Peak systolic 0.65 m/s. End diastolic 0.31 m/s. Proximal ICA/CCA peak systolic ratio 1.1. Plaque in the proximal internal carotid artery. VERTEBRAL ARTERIES: Antegrade flow. Normal waveforms. SUBCLAVIAN ARTERIES: No finding. OTHER: No other significant finding. IMPRESSION: NO HEMODYNAMICALLY SIGNIFICANT STENOSIS. COMMENT: Quality ID #[id number]: Velocity criteria are extrapolated from the diameter data as defined by t he Society of Radiologists in Ultrasound Consensus Conference. Radiology 2003: 229; 340-346. TECHNICAL DOCUMENTATION: JOB ID: [id number] [employer]- All Rights Reserved Reading location - IP/workstation name: [facility]
== END 2018-01-06 18:33 | disposition home health service (06) | DRG 65 ==
LOC: ER 16:04 → EH 20:45 → 3W 22:22
PROVIDERS: ADMIT Internal Medicine; ATTEND Internal Medicine
DX: I63.432 Cerebral infarction due to embolism of left posterior cerebral artery (principal); I16.1 Hypertensive emergency; G40.909 Epilepsy, unspecified, not intractable, without status epilepticus; E11.42 Type 2 diabetes mellitus with diabetic polyneuropathy; H47.612 Cortical blindness, left side of brain; F12.90 Cannabis use, unspecified, uncomplicated; Z86.73 Personal history of transient ischemic attack (TIA), and cerebral infarction without residual deficits; Z89.511 Acquired absence of right leg below knee; Z91.19 Patient's noncompliance with other medical treatment and regimen; Z79.01 Long term (current) use of anticoagulants; Z79.84 Long term (current) use of oral hypoglycemic drugs; Z79.82 Long term (current) use of aspirin; Z79.899 Other long term (current) drug therapy
CPT/HCPCS: 36415; 70450; 70544; 70547; 70551; 71045; 80048; 80053; 80061; 80156; 80307; 81001; 82150; 82550; 82553; 82962; 83036; 83690; 83735; 84439; 84443; 84484; 85025; 85027; 85610; 85730; 93005; 93010; 93306; 93880; 99285; G8978-GP; G8979-GP; J1650; J1815; J2060; J2405; J3490; J7030; S0119

== ENCOUNTER 2018-06-30 16:28 | Emergency (ER) | payer OTHER, MEDICARE ==
--- NOTE | 2018-06-30 18:14 | ER Document Report ---
ED Medical Screen (RME) - General Chief Complaint: Abnormal Lab Results Stated Complaint: ABNORMAL LABS Time Seen by Provider: 06/30/18 18:08 Primary Care Provider: JERZY GAINES MD [Primary Care Provider] - Follow up as needed Mode of Arrival: Wheelchair Information source: Patient Notes: patient presents to the emergency department for complaints of low potassium and low sodium. Patient reports she just had a visit at [facility]. They called her at home and told her to come to the hospital because she had a low potassium and low sodium. Patient was being evaluated for stroke in december and seizure which she is now blind from. She denies all symptoms such as chest pain heart fluttering numbness or tingling. Patient reports no symptoms at all. She is t aking her medication as prescribed. Does not take a diuretic. I have greeted and performed a rapid initial assessment of this patient. A comprehensive ED assessment and evaluation of the patient, analysis of test results and completion of the medical decision making process will be conducted by additional ED providers. Dictation of this chart was performed using voice recognition software; t herefore, there may be some unintended grammatical errors. TRAVEL OUTSIDE OF THE [place] IN LAST 30 DAYS: No - Related Data Allergies/Adverse Reactions: No Known Allergies Allergy (Verified 06/30/18 18:07) Past Medical History - Social History Chew tobacco use (# tins/day): No Frequency of alcohol use: Rare Drug Abuse: Marijuana - Past Medical History Cardiac Medical History: Reports: Hx Hypercholesterolemia, Hx Hypertension, Hx Peripheral Vascular Disease Denies: Hx Atrial Fibrillation, Hx Congestive Heart Failure, Hx Coronary Artery Disease, Hx Heart Attack, Hx Heart Murmur Pulmonary Medical History: Denies: Hx Tuberculosis Neurological Medical History: Reports: Hx Cerebrovascular Accident, Hx Seizures Endocrine Medical History: Reports: Hx Diabetes Mellitus Type 2 Renal/ Medical History: Denies: Hx Peritoneal Dialysis Malignancy Medical History: Denies: Hx Leukemia Musculoskeltal Medical History: Reports Hx Arthritis - rheumatoid-dr. dover, Denies Hx Fibromyalgia, Denies Hx Multiple Sclerosis, Denies Hx Muscular Dystrophy Psychiatric Medical History: Denies: Hx Bipolar Disorder, Hx Dementia, Hx Depression, Hx Post Traumatic Stress Disorder, Hx Schizophrenia Traumatic Medical History: Denies: Hx Fractures Infectious Medical History: Denies: Hx HIV Past Surgical History: Reports: Hx Hysterectomy, Hx Orthopedic Surgery - 06/2010 right leg, above knee amputation. Denies: Hx Pacemaker - Immunizations Hx Diphtheria, Pertussis, Tetanus Vaccination: Yes Physical Exam - Vital signs Vitals: Temp Pulse Resp BP Pulse Ox 98.0 F 65 16 100/71 99 06/30/18 16:47 06/30/18 16:47 06/30/18 16:47 06/30/18 16:47 06/30/18 16:47 Course - Vital Signs Vital signs: Temp Pulse Resp BP Pulse Ox 98.0 F 65 16 100/71 99 06/30/18 16:47 06/30/18 16:47 06/30/18 16:47 06/30/18 16:47 06/30/18 16:47 Doctor's Discharge - Discharge Referrals: JERZY GAINES MD [Primary Care Provider] - Follow up as needed
[2018-06-30 18:58] LABS: ABSOLUTE BASOPHILS # (AUTO) 0.1 10^3/uL (0.0-0.2); ABSOLUTE EOSINOPHILS # (AUTO) 0.2 10^3/uL (0.0-0.6); ABSOLUTE LYMPHOCYTES (AUTO) 4.5 10^3/uL (0.5-4.7); ABSOLUTE MONOCYTES (AUTO) 0.5 10^3/uL (0.1-1.4); BASOPHILS % (AUTO) 0.6 % (0-2); EOSINOPHILS % (AUTO) 1.9 % (0-6); HEMATOCRIT 37.8 % (36.0-47.0); HEMOGLOBIN 13.1 g/dL (12.0-15.5); LYMPHOCYTES % (AUTO) 55.2 % (13-45); MEAN CORPUSCULAR HEMOGLOBIN 28.3 pg (27.0-33.4); MEAN CORPUSCULAR HGB CONC 34.6 g/dL (32.0-36.0); MEAN CORPUSCULAR VOLUME 82 fl (80-97); MONOCYTES % (AUTO) 5.7 % (3-13); PLATELET COUNT 284 10^3/uL (150-450); RED BLOOD COUNT 4.63 10^6/uL (3.72-5.28); RED CELL DISTRIBUTION WIDTH 13.6 % (11.5-14.0); SEGMENTED NEUTROPHILS % (AUTO) 36.6 % (42-78); TOTAL CELLS COUNTED % (AUTO) 100 %; WHITE BLOOD COUNT 8.2 10^3/uL (4.0-10.5)
[2018-06-30 19:04] LABS: APPEARANCE,URINE SLIGHTLY-CLOUDY; BILIRUBIN,URINE NEGATIVE (NEGATIVE); COLOR,URINE YELLOW; GLUCOSE, URINE >=500 mg/dL (NEGATIVE); KETONES,URINE NEGATIVE (NEGATIVE); LEUKOCYTE ESTERASE,URINE TRACE (NEGATIVE); NITRITE,URINE NEGATIVE (NEGATIVE); PROTEIN,URINE NEGATIVE (NEGATIVE); URINE SPECIFIC GRAVITY 1.023; UROBILINOGEN,URINE NEGATIVE mg/dL (<2.0)
[2018-06-30 22:31] LABS: ALANINE AMINOTRANSFERASE 48 U/L (9-52); ALKALINE PHOSPHATASE 103 U/L (38-126); ANION GAP 11 (5-19); ASPARTATE AMINO TRANSFERASE 23 U/L (14-36); BILIRUBIN,DIRECT 0.1 mg/dL (0.0-0.4); BILIRUBIN,TOTAL 0.1 mg/dL (0.2-1.3); BLOOD UREA NITROGEN 19 mg/dL (7-20); CALCIUM 9.8 mg/dL (8.4-10.2); CARBON DIOXIDE 31 mmol/L (22-30); CHLORIDE 88 mmol/L (98-107); GLUCOSE 155 mg/dL (75-110); SODIUM 129.5 mmol/L (137-145); TOTAL PROTEIN 6.7 g/dL (6.3-8.2)
[2018-06-30 22:37] LABS: POTASSIUM 2.9 mmol/L (3.6-5.0)
[2018-06-30] MEDS ORDERED: POTASSI CL 20 MEQ/50 ML RIDER 20 MEQ/50 ML RTUPB IV ONE (22:41)
[2018-06-30] MEDS ORDERED: POTASSIUM CHLORIDE 10 MEQ CAPSULE.ER PO ONE (22:41)
--- NOTE | 2018-06-30 22:42 | ER Document Report ---
ED General - General Chief Complaint: Abnormal Lab Results Stated Complaint: ABNORMAL LABS Time Seen by Provider: 06/30/18 18:08 Primary Care Provider: JERZY GAINES MD [Primary Care Provider] - Follow up as needed Mode of Arrival: Wheelchair Notes: Patient is a 58-year-old female with diabetes, hypertension that presents to the emergency department for chief complaint of abnormal blood work. Patient reports she was having routine blood testing, that happened to show low sodium and low potassium she was advised to come to the emergency department to have this evaluated and treated if needed. She denies having any pain, lightheadedness, dizziness, seizures, numbness, weakness or tingling. She denies having any chest pain, shortness of breath, nausea, vomiting or diarrhea recently. She recently had some blood pressure medications changed, she was previously on losartan hydrochlorothiazide, is now taking valsartan and chlorthalidone. Past Medical History: Hypertension, diabetes mellitus, seizure disorder, stroke Past Surgical History: Right [id number] amputation Social History: Denies tobacco, alcohol or drug use. Family History: Reviewed and noncontributory for presenting illness Allergies: Reviewed, see documented allergy list. REVIEW OF SYSTEMS: Other than noted above, the 12 point review of systems was reviewed with the patient and were negative, all pertinent findings are included in the HPI. PHYSICAL EXAMINATION: Vital signs reviewed, nursing noted reviewed. GENERAL: Well-appearing, well-nourished and in no acute distress. HEAD: Atraumatic, normocephalic. EYES: Eyes appear normal, extraocular movements intact, sclera anicteric, conjunctiva are normal. ENT: nares patent, oropharynx clear without exudates. Moist mucous membranes. NECK: Normal range of motion, supple without lymphadenopathy LUNGS: Breath sounds clear to auscultation bilaterally and equal. No wheezes rales or rhonchi. HEART: Regular rate and rhythm without murmurs ABDOMEN: Soft, nontender, normoactive bowel sounds. No rebound, guarding, or rigidity. No masses appreciated. EXTREMITIES: Right lower extremity [id number] amputation, no edema, otherwise normal range of motion, nontender extremities. NEUROLOGICAL: No focal neurological deficits. Moves all extremities spontaneously Motor and sensory grossly intact on exam. PSYCH: Normal mood, normal affect. SKIN: Warm, Dry, normal turgor, no rashes or lesions noted on exposed skin TRAVEL OUTSIDE OF THE [place] IN LAST 30 DAYS: No - Related Data Allergies/Adverse Reactions: No Known Allergies Allergy (Verified 06/30/18 18:07) Past Medical History - General Information source: Patient - Social History Smoking Status: Former Smoker Chew tobacco use (# tins/day): No Frequency of alcohol use: Rare Drug Abuse: Marijuana Family History: Hyperlipidemia Patient has suicidal ideation: No Patient has homicidal ideation: No - Past Medical History Cardiac Medical History: Reports: Hx Hypercholesterolemia, Hx Hypertension, Hx Peripheral Vascular Disease Denies: Hx Atrial Fibrillation, Hx Congestive Heart Failure, Hx Coronary Artery Disease, Hx Heart Attack, Hx Heart Murmur Pulmonary Medical History: Denies: Hx Tuberculosis Neurological Medical History: Reports: Hx Cerebrovascular Accident, Hx Seizures Endocrine Medical History: Reports: Hx Diabetes Mellitus Type 2 Renal/ Medical History: Denies: Hx Peritoneal Dialysis Malignancy Medical History: Denies: Hx Leukemia Musculoskeletal Medical History: Reports Hx Arthritis - rheumatoid-dr. dover, Denies Hx Fibromyalgia, Denies Hx Multiple Sclerosis, Denies Hx Muscular Dystrophy Psychiatric Medical History: Denies: Hx Bipolar Disorder, Hx Dementia, Hx Depression, Hx Post Traumatic Stress Disorder, Hx Schizophrenia Traumatic Medical History: Denies: Hx Fractures Infectious Medical History: Denies: Hx HIV Past Surgical History: Reports: Hx Hysterectomy, Hx Orthopedic Surgery - 06/2010 right leg, above knee amputation. Denies: Hx Pacemaker - Immunizations Hx Diphtheria, Pertussis, Tetanus Vaccination: Yes Hx Pneumococcal Vaccination: 03/31/14 Physical Exam - Vital signs Vitals: Temp Pulse Resp BP Pulse Ox 98.0 F 65 16 100/71 99 06/30/18 16:47 06/30/18 16:47 06/30/18 16:47 06/30/18 16:47 06/30/18 16:47 Course - Re-evaluation Re-evalutation: Patient seen and examined vital signs reviewed. Laboratory data and/or imaging were ordered as appropriate for the patient's presenting symptoms and complaint, with consideration of any critical or life threatening conditions that may be associated with their obtained history and exam as noted above. Patient was treated with IV potassium replacement and p.o. potassium replacement, also given an IV fluid bolus of normal saline Results were reviewed when available and demonstrated hypokalemia of 2.9, and hyponatremia of 129 The patient was re-evaluated and was stable Evaluation was most consistent with severe hypokalemia, mild hyponatremia, patient treated appropriately with IV and p.o. potassium replacement, a total of 60 mEq, advised follow-up with her primary care to discuss the chlorthalidone she was recently placed on, which I suspect is the cause of the patient's hyponatremia, and hypokalemia. Results were discussed with the patient at this point, after careful consideration I feel that that patient can be discharged from the emergency department, the patient was educated treatments and reasons to return to the emergency department based on their presumed diagnosis as noted above, they were advised to followup with a primary care physician in 2-3 days. Patient was agreeable to plan of care. *Note is created using voice recognition software and may contain spelling, syntax or grammatical errors. Laboratory 06/30/18 06/30/18 06/30/18 18:30 18:30 18:30 WBC 8.2 RBC 4.63 Hgb 13.1 Hct 37.8 MCV 82 MCH 28.3 MCHC 34.6 RDW 13.6 Plt Count 284 Seg Neutrophils % 36.6 L Lymphocytes % 55.2 H Monocytes % 5.7 Eosinophils % 1.9 Basophils % 0.6 Absolute Neutrophils 3.0 Absolute Lymphocytes 4.5 Absolute Monocytes 0.5 Absolute Eosinophils 0.2 Absolute Basophils 0.1 Sodium Cancelled Potassium Cancelled Chloride Cancelled Carbon Dioxide Cancelled Anion Gap Cancelled BUN Cancelled Creatinine Cancelled Est GFR ( Amer) Cancelled Est GFR (Non-Af Amer) Cancelled Glucose Cancelled Calcium Cancelled Magnesium Total Bilirubin Cancelled Direct Bilirubin Cancelled Neonat Total Bilirubin Cancelled Neonat Direct Bilirubin Cancelled Neonat Indirect Bili Cancelled AST Cancelled ALT Cancelled Alkaline Phosphatase Cancelled Total Protein Cancelled Albumin Cancelled Urine Color YELLOW Urine Appearance SLIGHTLY-CLOUDY Urine pH 6.0 Ur Specific [place] 1.023 Urine Protein NEGATIVE Urine Glucose (UA) >=500 H Urine Ketones NEGATIVE Urine Blood MODERATE H Urine Nitrite NEGATIVE Urine Bilirubin NEGATIVE Urine Urobilinogen NEGATIVE Ur Leukocyte Esterase TRACE H Urine WBC (Auto) 2 Urine RBC (Auto) 1 Urine Bacteria (Auto) TRACE Squamous Epi Cells Auto 3 Urine Mucus (Auto) RARE Urine Ascorbic Acid NEGATIVE 06/30/18 06/30/18 21:57 21:57 WBC RBC Hgb Hct MCV MCH MCHC RDW Plt Count Seg Neutrophils % Lymphocytes % Monocytes % Eosinophils % Basophils % Absolute Neutrophils Absolute Lymphocytes Absolute Monocytes Absolute Eosinophils Absolute Basophils Sodium 129.5 L Potassium 2.9 L* Chloride 88 L Carbon Dioxide 31 H Anion Gap 11 BUN 19 Creatinine 0.52 Est GFR ( Amer) > 60 Est GFR (Non-Af Amer) > 60 Glucose 155 H Calcium 9.8 Magnesium 1.9 Total Bilirubin 0.1 L Direct Bilirubin 0.1 Neonat Total Bilirubin Not Reportable Neonat Direct Bilirubin Not Reportable Neonat Indirect Bili Not Reportable AST 23 ALT 48 Alkaline Phosphatase 103 Total Protein 6.7 Albumin 4.0 Urine Color Urine Appearance Urine pH Ur Specific [place] Urine Protein Urine Glucose (UA) Urine Ketones Urine Blood Urine Nitrite Urine Bilirubin Urine Urobilinogen Ur Leukocyte Esterase Urine WBC (Auto) Urine RBC (Auto) Urine Bacteria (Auto) Squamous Epi Cells Auto Urine Mucus (Auto) Urine Ascorbic Acid - Vital Signs Vital signs: Temp Pulse Resp BP Pulse Ox 98.0 F 65 16 100/71 99 06/30/18 16:47 06/30/18 16:47 06/30/18 16:47 06/30/18 16:47 06/30/18 16:47 - Laboratory Result Diagrams: 06/30/18 18:30 06/30/18 21:57 Laboratory results interpreted by me: 06/30/18 06/30/18 06/30/18 18:30 18:30 21:57 Seg Neutrophils % 36.6 L Lymphocytes % 55.2 H Sodium 129.5 L Potassium 2.9 L* Chloride 88 L Carbon Dioxide 31 H Glucose 155 H Total Bilirubin 0.1 L Urine Glucose (UA) >=500 H Urine Blood MODERATE H Ur Leukocyte Esterase TRACE H - EKG Interpretation by Me Additional EKG results interpreted by me: EKG that demonstrates sinus bradycardia, with presence of left anterior fascicular block, ventricular rate of 52 bpm, left axis deviation, QTC 495 ms, baseline artifact noted. This is compared with prior EKG from December 2017, without significant change. Critical Care Note - Critical Care Note Total time excluding time spent on procedures (mins): 34 Comments: Critical care time 34 minutes exclusive from separate billable procedures for a patient requiring complex medical decision making, and high potential for clinical deterioration. In a patient with severe hyperkalemia requiring IV potassium replacement, close monitoring on telemetry. Time spent obtaining history from patient or surrogate, discussions with consultants, development of treatment plan with patient or surrogate, evaluation of patient's response to treatment, examination of patient, ordering and performing treatments and interventions, ordering and review of laboratory studies, re-evaluation of patient's condition, ordering and review of radiographic studies and review of old charts Discharge - Discharge Clinical Impression: Hypokalemia, Hyponatremia Condition: Stable Disposition: HOME, SELF-CARE Instructions: Hypokalemia ([facility]) Additional Instructions: Please talk with your primary care physician, Dr. Machado about your medications, I did port heiden these on your medication list, that this is likely causing the low potassium, and low sodium, and mild dehydration, please review this with him to see if you need to remain on this medication or if an alternative medication could be prescribed. Referrals: LUKE MACHADO MD [COMMUNITY BASED STAFF] - Follow up tomorrow
[2018-06-30] MEDS ORDERED: NORMAL SALINE 500 ML IV ONE (23:01)
[2018-07-01 01:24] VITALS: BP 138/78
--- NOTE | 2018-07-01 10:57 | EKG REPORT ---
SEVERITY:- ABNORMAL ECG - SINUS RHYTHM LEFT ANTERIOR FASCICULAR BLOCK LEFT VENTRICULAR HYPERTROPHY ANTERIOR Q WAVES, POSSIBLY DUE TO LVH : Confirmed by: Alex Alvarenga 01-Jul-2018 10:56:54
== END 2018-07-01 01:28 | disposition home or self-care (01) ==
LOC: ER 16:28
DX: E87.6 Hypokalemia (principal); E87.1 Hypo-osmolality and hyponatremia; I44.4 Left anterior fascicular block; R00.1 Bradycardia, unspecified; I10 Essential (primary) hypertension; E11.51 Type 2 diabetes mellitus with diabetic peripheral angiopathy without gangrene; F12.10 Cannabis abuse, uncomplicated; Z87.891 Personal history of nicotine dependence
CPT/HCPCS: 93005; 99285; 96365; 96366; 36415; 83735; 85025; 80053; 81001; 93010; J3480

== ENCOUNTER 2019-06-15 19:58 | Inpatient (IN) | payer MEDICARE, MEDICAID ==
[2019-06-15 21:02] LABS: HEMATOCRIT 38.9 % (36.0-47.0); HEMOGLOBIN 12.6 g/dL (12.0-15.5); MEAN CORPUSCULAR HEMOGLOBIN 26.8 pg (27.0-33.4); MEAN CORPUSCULAR HGB CONC 32.5 g/dL (32.0-36.0); MEAN CORPUSCULAR VOLUME 83 fl (80-97); PLATELET COUNT 261 10^3/uL (150-450); RED BLOOD COUNT 4.72 10^6/uL (3.72-5.28); RED CELL DISTRIBUTION WIDTH 14.6 % (11.5-14.0); WHITE BLOOD COUNT 14.7 10^3/uL (4.0-10.5)
[2019-06-15] MEDS ORDERED: NORMAL SALINE 1000 ML 1,000 ML IV ONE ×2 (21:02→22:21)
[2019-06-15 21:04] LABS: ABSOLUTE LYMPHOCYTES# (MANUAL) 4.3 10^3/uL (0.5-4.7); ABSOLUTE MONOCYTES # (MANUAL) 1.2 10^3/uL (0.1-1.4); BAND NEUTROPHILS % (MANUAL) 6 % (3-5); BASOPHILS % (MANUAL) 0 % (0-2); EOSINOPHILS % (MANUAL) 0 % (0-6); LYMPHOCYTES % (MANUAL) 26 % (13-45); MONOCYTES % (MANUAL) 8 % (3-13); SEGMENTED NEUTROPHILS % (MAN) 57 % (42-78); TOTAL CELLS COUNTED 100
[2019-06-15 21:05] LABS: ANISOCYTOSIS SLIGHT; BURR CELLS 1+; PLATELET COMMENT ADEQUATE
--- NOTE | 2019-06-15 21:07 | ER Document Report ---
ED Respiratory Problem - General Chief Complaint: Respiratory Distress Stated Complaint: DIFFICULTY BREATHING,COUGH Time Seen by Provider: 06/15/19 20:47 Primary Care Provider: JERZY GAINES MD [Primary Care Provider] - Follow up as needed Notes: Patient is a 59-year-old female that comes from home by EMS for chief complaint of difficulty breathing and cough. She states that she has had a worsening cough for over a week, generalized tiredness, very dry mouth, occasional diarrhea. She denies any recorded fevers or noticed fevers. She states that she got worse tonight and felt like she could not breathe, EMS recorded initial oxygen saturation at 92% on room air, she was given 125 mg of Solu-Medrol, 1 Du oNeb. On arrival at the emergency department she was 88% on room air before being placed back on oxygen. She states she feels much better now. She denies smoking, COPD, asthma. Patient did not have influenza vaccin. Past medical history includes type 2 diabetes, hypertension, seizures, hyperlipidemia, CVA on Plavix. Patient denies recent travel, recent antibiotics, or recent hospital admission. TRAVEL OUTSIDE OF THE [place] IN LAST 30 DAYS: No - Related Data Allergies/Adverse Reactions: No Known Allergies Allergy (Verified 06/30/18 18:07) Past Medical History - General Information source: Patient - Social History Smoking Status: Never Smoker Drug Abuse: None Lives with: Alone Family History: Hyperlipidemia Patient has suicidal ideation: No Patient has homicidal ideation: No - Past Medical History Cardiac Medical History: Reports: Hx Hypercholesterolemia, Hx Hypertension, Hx Peripheral Vascular Disease Denies: Hx Atrial Fibrillation, Hx Congestive Heart Failure, Hx Coronary Artery Disease, Hx Heart Attack, Hx Heart Murmur Pulmonary Medical History: Denies: Hx Tuberculosis Neurological Medical History: Reports: Hx Cerebrovascular Accident, Hx Seizures. Denies: Hx Parkinson's Disease Endocrine Medical History: Reports: Hx Diabetes Mellitus Type 2 Renal/ Medical History: Denies: Hx Peritoneal Dialysis Malignancy Medical History: Denies: Hx Leukemia Musculoskeletal Medical History: Reports Hx Arthritis - rheumatoid-dr. dover, Denies Hx Fibromyalgia, Denies Hx Multiple Sclerosis, Denies Hx Muscular Dystrophy Psychiatric Medical History: Denies: Hx Bipolar Disorder, Hx Dementia, Hx Depression, Hx Post Traumatic Stress Disorder, Hx Schizophrenia Traumatic Medical History: Denies: Hx Fractures Infectious Medical History: Denies: Hx HIV Past Surgical History: Reports: Hx Hysterectomy, Hx Orthopedic Surgery - 06/2010 right leg, above knee amputation. Denies: Hx Pacemaker - Immunizations Hx Diphtheria, Pertussis, Tetanus Vaccination: Yes Hx Pneumococcal Vaccination: 03/31/14 Review of Systems - Review of Systems Constitutional: See HPI EENT: No symptoms reported Cardiovascular: No symptoms reported Respiratory: See HPI Gastrointestinal: See HPI Genitourinary: No symptoms reported Female Genitourinary: No symptoms reported Musculoskeletal: No symptoms reported Skin: No symptoms reported Hematologic/Lymphatic: No symptoms reported Neurological/Psychological: No symptoms reported Physical Exam - Vital signs Vitals: Resp BP Pulse Ox 42 H 115/90 H 95 06/15/19 20:08 06/15/19 20:08 06/15/19 20:08 - Notes Notes: GENERAL: Alert, interacts well. No acute distress. HEAD: Normocephalic, atraumatic. EYES: Pupils equal, round, and reactive to light. Extraocular movements intact. ENT: Oral mucosa moist, tongue midline. Oropharynx unremarkable. Airway patent. Nares patent, no nasal septal hematoma NECK: Full range of motion. Supple. Trachea midline. LUNGS: Occasional cough, faint scattered expiratory wheezes, also Rales noted bilaterally more noticeable on the left. Patient is able to speak in full sentences, no labored breathing or obvious tachypnea while on oxygen. HEART: Tachycardia, normal rhythm, no murmur ABDOMEN: Soft, non-tender. Non-distended. EXTREMITIES: Right BKA, otherwise unremarkable, distal pulses and sensation present, no edema BACK: no cervical, thoracic, lumbar midline tenderness. No saddle anesthesia, normal distal neurovascular exam. NEUROLOGICAL: Alert and oriented x3. Normal speech. Cranial nerves II through XII grossly intact. PSYCH: Normal affect, normal mood. SKIN: Warm, dry, normal turgor. No rashes or lesions noted. Course - Re-evaluation Re-evalutation: Patient is alert, conversational, does not appear to be toxic on my evaluation. She is doing well on oxygen and states she feels much better. She has expiratory wheezes and scattered rales on exam evaluation of her lungs with congested cough. She is tachycardic. She did not have a fever at this time. Work-up initiated, I suspect pneumonia. Patient also be tested for influenza, COVID-19. CBC shows leukocytosis at 14.7 with bandemia at 6%. Patient has been started on Rocephin, EKG does show tachycardia and borderline prolonged QTC therefore instead of azithromycin patient was given doxycycline. Blood cultures are pending. Venous blood gas shows slightly low pH at 7.27 with low CO2 and low bicarbonate. Appears to be some degree of metabolic acidosis. This is confirmed on chemistry with low bicarbonate and somewhat elevated anion gap. Blood glucose is only 180, lactic acid is elevated at 3.8. Patient being given a 30 cc/kg fluid bolus, she does not have a history of CHF. Chest x-ray does confirm suspected pneumonia, bilateral. Troponin indeterminate. Chemistry nonspecific otherwise. Strep and influenza are negative. Patient is not hypotensive on reevaluation, she is still tachycardic, her oxygen saturation is in the mid 90s on 2 L nasal cannula. Discussed patient with Dr. Carrion. Discussed with patient in detail, discussed admission, patient states understanding and agreement. 06/15/19 22:[address] Gaines, patient's provider, patient accepted to IMCU full admission. - Vital Signs Vital signs: Temp Pulse Resp BP Pulse Ox 99.3 F 126 H 18 104/87 H 88 L 06/15/19 20:10 06/15/19 20:10 06/15/19 20:10 06/15/19 20:10 06/15/19 20:10 - Laboratory Result Diagrams: 06/15/19 20:05 06/15/19 21:38 Laboratory results interpreted by me: 06/15/19 06/15/19 06/15/19 20:05 20:57 21:38 WBC 14.7 H MCH 26.8 L RDW 14.6 H Band Neutrophils % 6 H Abs Neuts (Manual) 9.3 H VBG pH VBG pCO2 VBG HCO3 Potassium 3.2 L Carbon Dioxide 12 L Anion Gap 27 H Glucose 195 H POC Glucose 181 H Lactic Acid Direct Bilirubin 0.6 H 06/15/19 06/15/19 21:38 21:38 WBC MCH RDW Band Neutrophils % Abs Neuts (Manual) VBG pH 7.27 L VBG pCO2 33.6 L VBG HCO3 15.1 L Potassium Carbon Dioxide Anion Gap Glucose POC Glucose Lactic Acid 3.8 H Direct Bilirubin Discharge - Discharge Clinical Impression: Hypoxia, Metabolic acidosis Pneumonia Qualifiers: Pneumonia type: due to unspecified organism Laterality: bilateral Lung location: unspecified part of lung Qualified Code(s): J18.9 - Pneumonia, unspecified organism Sepsis Qualifiers: Sepsis type: sepsis due to unspecified organism Sepsis acute organ dysfunction status: with acute organ dysfunction Severe sepsis acute organ dysfunction type: unspecified Severe sepsis shock status: without septic shock Qualified Code(s): A41.9 - Sepsis, unspecified organism Condition: Stable Disposition: ADMITTED INPATIENT Admitting Provider: [facility] Admitted: [facility] Referrals: JERZY GAINES MD [Primary Care Provider] - Follow up as needed
[2019-06-15] MEDS ORDERED: AZITHROMYCIN INJ 500 MG VIAL IV ONE (21:08)
[2019-06-15] MEDS ORDERED: CEFTRIAXONE 1 GM/D5W RTU 1 GM/50 ML RTUPB IV ONE (21:08)
[2019-06-15] MEDS ORDERED: ALBUTEROL SULFATE 0.083% NEB 2.5 MG/3 ML AMPUL NEB ONE (21:08)
--- NOTE | 2019-06-15 21:30 | RADIOLOGY REPORT (SQ) ---
EXAM DESCRIPTION: XR CHEST 1 VIEW COMPLETED DATE/TME: 06/15/2019 20:15 CLINICAL HISTORY: 59 years, Female, SOB COMPARISON: Prior study from 12/30/2017 NUMBER OF VIEWS: One TECHNIQUE: Single frontal view of the chest was obtained portably LIMITATIONS: None. FINDINGS: Cardiac and mediastinal contours are unchanged, with dilatation and ectasia of the thoracic aorta. Patchy bibasilar airspace disease is noted. No pleural effusion or pneumothorax. IMPRESSION: Patchy bibasilar airspace disease. Consider atelectasis or pneumonia to include aspiration. 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 copyright 2010 [employer]- All Rights Reserved
[2019-06-15 21:36] LABS: A TYPE INFLUENZA AG NEGATIVE (NEGATIVE); B INFLUENZA AG NEGATIVE (NEGATIVE)
[2019-06-15 21:53] LABS: VENOUS BLOOD BASE EXCESS -10.7 mmol/L; VENOUS BLOOD HCO3 15.1 mmol/L (20-32); VENOUS BLOOD PCO2 33.6 mmHg (35-63); VENOUS BLOOD PH 7.27 (7.30-7.42)
[2019-06-15 22:12] LABS: ALBUMIN 3.5 g/dL (3.5-5.0); ALKALINE PHOSPHATASE 102 U/L (38-126); ASPARTATE AMINO TRANSFERASE 21 U/L (14-36); BILIRUBIN,DIRECT 0.6 mg/dL (0.0-0.4); BILIRUBIN,TOTAL 0.6 mg/dL (0.2-1.3); BLOOD UREA NITROGEN 14 mg/dL (7-20); CALCIUM 8.6 mg/dL (8.4-10.2); CREATINE KINASE 77 U/L (30-135); GLUCOSE 195 mg/dL (75-110); POTASSIUM 3.2 mmol/L (3.6-5.0); TOTAL PROTEIN 6.4 g/dL (6.3-8.2)
[2019-06-15] MEDS ORDERED: DOXYCYCLINE HYCLATE INJ 100 MG VIAL IV ONE (22:21)
[2019-06-15] MEDS ORDERED: NORMAL SALINE 250 ML IV ONE (22:21)
[2019-06-15 22:24] LABS: ANION GAP 27 (5-19); CARBON DIOXIDE 12 mmol/L (22-30); CHLORIDE 99 mmol/L (98-107); CREATINE KINASE MB 3.12 ng/mL (<4.55); TROPONIN I 0.022 ng/mL
[2019-06-16] MEDS ORDERED: INFLUENZA QUAD (6MOS+) 2019-20 VAC 0.5 ML SYR IM ONE (01:28)
[2019-06-16] MEDS ORDERED: (PENDING PHARMACY ID) (Empagliflozin [Jardiance] 25 MG) PO SCH (02:45)
[2019-06-16] MEDS ORDERED: GLUCAGON,HUMAN RECOMB 1 MG INJ IM PRN (02:47)
[2019-06-16] MEDS ORDERED: DEXTROSE 40% GEL 15 GM TUBE PO PRN ×2 (02:47)
[2019-06-16] MEDS ORDERED: DEXTROSE 50%-WATER 25 GM/50 ML DISP.SYRIN IV PRN ×2 (02:47)
[2019-06-16] MEDS ORDERED: ACETAMINOPHEN 325 MG TABLET PO PRN (02:48)
[2019-06-16] MEDS: NORMAL SALINE 1000 ML 1,000 ML IV PRN ×2 (03:30→21:50)
[2019-06-16 03:55] LABS: ARTERIAL BLOOD BASE EXCESS -13.7 mmol/L; ARTERIAL BLOOD FIO2 21%; ARTERIAL BLOOD H2CO3 0.67 mmol/L (1.05-1.35); ARTERIAL BLOOD HCO3 10.7 mmol/L (20-24); ARTERIAL BLOOD O2 SATURATION 90.7 % (94-98); ARTERIAL BLOOD PCO2 22.3 mmHg (35-45); ARTERIAL BLOOD PO2 63.4 mmHg (80-100); ARTERIAL BLOOD TOTAL CO2 11.4 mmol/L (21-25)
[2019-06-16 04:14] LABS: CREATINE KINASE MB 10.5 ng/mL (<4.55); TROPONIN I 0.021 ng/mL
[2019-06-16] MEDS: ATORVASTATIN CALCIUM 80 MG TABLET PO SCH ×2 (04:24→21:50)
[2019-06-16] MEDS: INSULIN LISPRO 100 UNIT/ML 3 ML VIAL SUBCUT SCH ×5 (04:24→21:51)
[2019-06-16] MEDS: CLOPIDOGREL BISULFATE 75 MG TABLET PO SCH ×2 (04:24→09:35)
[2019-06-16] MEDS: AMLODIPINE BESYLATE 10 MG TABLET PO SCH ×2 (04:25→09:35)
[2019-06-16] MEDS ORDERED: IPRATROPIUM/ALBUTEROL 0.5-2.5 MG/3 ML AMPUL NEB SCH ×2 (05:00)
[2019-06-16] MEDS: LEVOFLOXACIN 750 MG/D5W RTU 750 MG/150 ML RTUPB IV SCH (05:40)
[2019-06-16] MEDS ORDERED: CEFEPIME 2 GM/D5W RTU 2 GM/50 ML RTUPB IV SCH (06:00)
[2019-06-16 08:05] LABS: APPEARANCE,URINE SLIGHTLY-CLOUDY; BILIRUBIN,URINE NEGATIVE (NEGATIVE); COLOR,URINE YELLOW; GLUCOSE, URINE >=500 mg/dL (NEGATIVE); KETONES,URINE 80 mg/dL (NEGATIVE); LEUKOCYTE ESTERASE,URINE NEGATIVE (NEGATIVE); NITRITE,URINE NEGATIVE (NEGATIVE); PROTEIN,URINE NEGATIVE (NEGATIVE); URINE SPECIFIC GRAVITY 1.023; UROBILINOGEN,URINE NEGATIVE mg/dL (<2.0)
[2019-06-16] MEDS: METOPROLOL SUCCINATE 50 MG TAB.SR.24H PO SCH (09:33)
[2019-06-16] MEDS: VALSARTAN 160 MG TABLET PO SCH (09:34)
[2019-06-16] MEDS: HYDRALAZINE HCL 50 MG TABLET PO SCH ×2 (09:34→21:45)
[2019-06-16] MEDS: METFORMIN HCL 500 MG TABLET PO SCH (09:34)
[2019-06-16] MEDS: GLIPIZIDE XL 5 MG TAB.ER.24 PO SCH (09:35)
[2019-06-16] MEDS: OXCARBAZEPINE 150 MG TABLET PO SCH ×5 (09:36→21:50)
[2019-06-16] MEDS: ENOXAPARIN SODIUM INJ 40 MG/0.4 ML DISP.SYRIN SUBCUT SCH (09:37)
[2019-06-16] MEDS: CEFEPIME HCL 2 GM in DEXTROSE 5%-WATER 50 ML IV SCH (18:15)
[2019-06-16 19:39] LABS: C DIFFICILE GDH NEGATIVE (NEGATIVE)
--- NOTE | 2019-06-16 19:39 | PDOC H&P ---
History of Present Illness Admission Date/PCP: 06/15/19 23:01 JERZY GAINES MD History of Present Illness: KRISTINE HERNANDEZ is a 59 year old female, She has a history of cortical bli ndness due to CVA bilaterally hypertension, type 2 diabetes mellitus, she came to the emergency room last night for evaluation of difficulty breathing, cough generalized fatigue, diarrhea in the emergency room she was found to have a low oxygen saturation, 88% on ambient air. Chest x-ray that was done in the ER suggest pneumonia she was found to have metabolic acidosis ABG on ambient air, pH 7.3, PCO2 22.3 bicarbonate 10.7, PO2 63.4.There was lactic acidosis as well demonstrated Past Medical History Cardiac Medical History: Reports: Hyperlipidema, Hypertension, Peripheral Vascular Disease Neurological Medical History: Reports: Ischemic CVA, Seizures Endocrine Medical History: Reports: Diabetes Mellitus Type 2 Musculoskeltal Medical History: Reports: Arthritis - rheumatoid-dr. dover Past Surgical History Past Surgical History: Reports: Amputation - right above the knee, Hysterectomy, Orthopedic Surgery - 06/2010 right leg, above knee amputation Social History Lives with: Alone Smoking Status: Former Smoker Electronic Cigarette use?: No Frequency of Alcohol Use: None Hx Recreational Drug Use: No Drugs: None Hx Prescription Drug Abuse: No Family History Family History: Hyperlipidemia Parental Family History Reviewed: Yes Children Family History Reviewed: Yes Sibling(s) Family History Reviewed.: Yes Medication/Allergy Home Medications: Amlodipine Besylate [Norvasc 10 mg Tablet] 10 mg PO DAILY 12/31/17 Hydralazine HCl 50 mg PO BID 12/31/17 Metoprolol Succinate [Toprol XL 200 mg Tablet] 200 mg PO DAILY 12/31/17 Atorvastatin Calcium [Lipitor 80 mg Tablet] 80 mg PO QHS #90 tablet 01/06/18 Clopidogrel Bisulfate [Plavix 75 mg Tablet] 75 mg PO DAILY 06/16/19 Doxepin HCl [Silenor] 6 mg PO QHS 06/16/19 Empagliflozin [Jardiance] 25 mg PO DAILY 06/16/19 Glipizide [Glipizide Xl] 10 mg PO DAILY 06/16/19 Metformin HCl [Metformin HCl ER] 500 mg PO DAILY 06/16/19 Oxcarbazepine 900 mg PO BID 06/16/19 Valsartan 320 mg PO DAILY 06/16/19 Allergies/Adverse Reactions: No Known Allergies Allergy (Verified 06/30/18 18:07) Review of Systems Constitutional: ABSENT: chills, fever(s), headache(s), weight gain, weight loss Eyes: ABSENT: visual disturbances Ears: ABSENT: hearing changes Cardiovascular: ABSENT: chest pain, dyspnea on exertion, edema, orthropnea, palpitations Respiratory: PRESENT: cough, dyspnea. ABSENT: hemoptysis Gastrointestinal: PRESENT: diarrhea. ABSENT: abdominal pain, constipation, hematemesis, hematochezia, nausea, vomiting Genitourinary: ABSENT: dysuria, hematuria Musculoskeletal: ABSENT: joint swelling Integumentary: ABSENT: rash, wounds Neurological: ABSENT: abnormal gait, abnormal speech, confusion, dizziness, focal weakness, syncope Psychiatric: ABSENT: anxiety, depression, homidical ideation, suicidal ideation Endocrine: ABSENT: cold intolerance, heat intolerance, menstrual abnormalities, polydipsia, polyuria Hematologic/Lymphatic: ABSENT: easy bleeding, easy bruising, lymphadenopathy Physical Exam Vital Signs: Temp Pulse Resp BP Pulse Ox 98.6 F 91 19 143/80 H 93 06/16/19 16:00 06/16/19 16:00 06/16/19 16:00 06/16/19 16:00 06/16/19 16:00 Intake & Output 06/15/19 06/16/19 06/17/19 06:59 06:59 06:59 Intake Total 2610 740 Balance 2610 740 Weight 71.3 kg General appearance: PRESENT: no acute distress, well-developed, well-nourished Head exam: PRESENT: atraumatic, normocephalic Eye exam: PRESENT: conjunctiva pink, EOMI, PERRLA. ABSENT: scleral icterus Ear exam: PRESENT: normal external ear exam Mouth exam: PRESENT: moist, tongue midline Neck exam: PRESENT: full ROM. ABSENT: carotid bruit, JVD, lymphadenopathy, thyromegaly Respiratory exam: PRESENT: rhonchi Cardiovascular exam: PRESENT: RRR, +S1, +S2 Pulses: PRESENT: normal dorsalis pedis pul, +2 pedal pulses bilateral Vascular exam: PRESENT: normal capillary refill GI/Abdominal exam: PRESENT: normal bowel sounds, soft Rectal exam: PRESENT: deferred Extremities exam: PRESENT: right BKA Neurological exam: PRESENT: alert, CN II-XII grossly intact Psychiatric exam: PRESENT: appropriate affect, normal mood Skin exam: PRESENT: dry, intact, warm Results Laboratory Results: 06/15/19 20:05 06/15/19 21:38 06/15/19 06/15/19 06/15/19 20:05 20:05 21:38 WBC 14.7 H RBC 4.72 Hgb 12.6 Hct 38.9 MCV 83 MCH 26.8 L MCHC 32.5 RDW 14.6 H Plt Count 261 Seg Neutrophils % Not Reportable Carbonic Acid HCO3/H2CO3 Ratio ABG pH ABG pCO2 ABG pO2 ABG HCO3 ABG O2 Saturation ABG Base Excess VBG pH VBG pCO2 VBG HCO3 VBG Base Excess FiO2 Sodium Cancelled 137.5 Potassium Cancelled 3.2 L Chloride Cancelled 99 Carbon Dioxide Cancelled 12 L Anion Gap Cancelled 27 H BUN Cancelled 14 Creatinine Cancelled 0.74 Est GFR ( Amer) Cancelled > 60 Est GFR (Non-Af Amer) Cancelled Glucose Cancelled 195 H Lactic Acid Calcium Cancelled 8.6 Magnesium Total Bilirubin Cancelled 0.6 AST Cancelled 21 Alkaline Phosphatase Cancelled 102 Total Protein Cancelled 6.4 Albumin Cancelled 3.5 Urine Color Urine Appearance Urine pH Ur Specific [place] Urine Protein Urine Glucose (UA) Urine Ketones Urine Blood Urine Nitrite Ur Leukocyte Esterase Urine WBC (Auto) Urine RBC (Auto) 06/15/19 06/15/19 06/15/19 21:38 21:38 21:38 WBC RBC Hgb Hct MCV MCH MCHC RDW Plt Count Seg Neutrophils % Carbonic Acid HCO3/H2CO3 Ratio ABG pH ABG pCO2 ABG pO2 ABG HCO3 ABG O2 Saturation ABG Base Excess VBG pH 7.27 L VBG pCO2 33.6 L VBG HCO3 15.1 L VBG Base Excess -10.7 FiO2 Sodium Potassium Chloride Carbon Dioxide Anion Gap BUN Creatinine Est GFR ( Amer) Est GFR (Non-Af Amer) Glucose Lactic Acid 3.8 H Calcium Magnesium 2.0 Total Bilirubin AST Alkaline Phosphatase Total Protein Albumin Urine Color Urine Appearance Urine pH Ur Specific [place] Urine Protein Urine Glucose (UA) Urine Ketones Urine Blood Urine Nitrite Ur Leukocyte Esterase Urine WBC (Auto) Urine RBC (Auto) 06/16/19 06/16/19 06/16/19 00:44 03:27 03:45 WBC RBC Hgb Hct MCV MCH MCHC RDW Plt Count Seg Neutrophils % Carbonic Acid 0.67 L HCO3/H2CO3 Ratio 15:1 ABG pH 7.30 L ABG pCO2 22.3 L ABG pO2 63.4 L ABG HCO3 10.7 L ABG O2 Saturation 90.7 L ABG Base Excess -13.7 VBG pH VBG pCO2 VBG HCO3 VBG Base Excess FiO2 21% Sodium Potassium Chloride Carbon Dioxide Anion Gap BUN Creatinine Est GFR ( Amer) Est GFR (Non-Af Amer) Glucose Lactic Acid 2.6 H 1.5 Calcium Magnesium Total Bilirubin AST Alkaline Phosphatase Total Protein Albumin Urine Color Urine Appearance Urine pH Ur Specific [place] Urine Protein Urine Glucose (UA) Urine Ketones Urine Blood Urine Nitrite Ur Leukocyte Esterase Urine WBC (Auto) Urine RBC (Auto) 06/16/19 07:15 WBC RBC Hgb Hct MCV MCH MCHC RDW Plt Count Seg Neutrophils % Carbonic Acid HCO3/H2CO3 Ratio ABG pH ABG pCO2 ABG pO2 ABG HCO3 ABG O2 Saturation ABG Base Excess VBG pH VBG pCO2 VBG HCO3 VBG Base Excess FiO2 Sodium Potassium Chloride Carbon Dioxide Anion Gap BUN Creatinine Est GFR ( Amer) Est GFR (Non-Af Amer) Glucose Lactic Acid Calcium Magnesium Total Bilirubin AST Alkaline Phosphatase Total Protein Albumin Urine Color YELLOW Urine Appearance SLIGHTLY-CLOUDY Urine pH 5.0 Ur Specific [place] 1.023 Urine Protein NEGATIVE Urine Glucose (UA) >=500 H Urine Ketones 80 H Urine Blood NEGATIVE Urine Nitrite NEGATIVE Ur Leukocyte Esterase NEGATIVE Urine WBC (Auto) 1 Urine RBC (Auto) 7 06/15/19 06/15/19 06/15/19 20:05 20:05 21:38 Creatine Kinase Cancelled CK-MB (CK-2) Cancelled 3.12 Troponin I Cancelled 0.022 NT-Pro-B Natriuret Pep 06/15/19 06/16/19 06/16/19 21:38 03:27 03:27 Creatine Kinase 77 144 H CK-MB (CK-2) 10.50 H Troponin I 0.021 NT-Pro-B Natriuret Pep 812 H Impressions: Chest X-Ray 06/15/19 20:15 IMPRESSION: Patchy bibasilar airspace disease. Consider atelectasis or pneumonia to include aspiration. 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 copyright 2011 [employer]- All Rights Reserved Assessment & Plan - Diagnosis (1) Pneumonia, unspecified organism Is this a current diagnosis for this admission?: Yes Plan: Patient admitted for the management of community-acquired pneumonia, she will empirically be treated with antibiotic to cover potential pathogens, presently isolated to rule out COVID 19 which is appropriate especially in the setting of diarrhea there are reports that some strains of COVID 19 virus count because of GI symptoms (2) Metabolic acidosis Is this a current diagnosis for this admission?: Yes Plan: She has metabolic acidosis partially compensated there is lactic acidosis (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 Is this a current diagnosis for this admission?: Yes (4) Diarrhea Qualifiers: Diarrhea type: unspecified type Qualified Code(s): R19.7 - Diarrhea, unspecified Is this a current diagnosis for this admission?: Yes Plan: Stool sent for C. 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
[2019-06-16] MEDS ORDERED: OXCARBAZEPINE 900 MG PO SCH (19:45)
--- NOTE | 2019-06-16 19:47 | EKG REPORT ---
SEVERITY:- DEFECTIVE ECG - SINUS TACHYCARDIA LEFT ANTERIOR FASCICULAR BLOCK LVH WITH SECONDARY REPOLARIZATION ABNORMALITY ANTERIOR Q WAVES, POSSIBLY DUE TO LVH : Confirmed by: Heriberto Mancia MD 16-Jun-2019 19:47:09
[2019-06-16] MEDS: GUAIFENESIN SYRP 200 MG/10 ML UDC PO PRN (21:50)
[2019-06-16] MEDS ORDERED: (PENDING PHARMACY ID) (Doxepin Hcl [Silenor] 6 MG) PO SCH (22:00)
[2019-06-17] MEDS: NORMAL SALINE 1000 ML 1,000 ML IV PRN ×2 (04:32→10:00)
[2019-06-17] MEDS: CEFEPIME HCL 2 GM in DEXTROSE 5%-WATER 50 ML IV SCH ×2 (05:10→18:01)
[2019-06-17] MEDS: LEVOFLOXACIN 750 MG/D5W RTU 750 MG/150 ML RTUPB IV SCH (06:11)
[2019-06-17 06:22] LABS: ALKALINE PHOSPHATASE 100 U/L (38-126); ASPARTATE AMINO TRANSFERASE 26 U/L (14-36); BILIRUBIN,DIRECT 0.4 mg/dL (0.0-0.4); BILIRUBIN,TOTAL 0.4 mg/dL (0.2-1.3); BLOOD UREA NITROGEN 10 mg/dL (7-20); CHLORIDE 109 mmol/L (98-107); GLUCOSE 162 mg/dL (75-110); TOTAL PROTEIN 6.2 g/dL (6.3-8.2)
[2019-06-17 06:29] LABS: HEMATOCRIT 36.4 % (36.0-47.0); MEAN CORPUSCULAR HEMOGLOBIN 27.1 pg (27.0-33.4); MEAN CORPUSCULAR VOLUME 82 fl (80-97); PLATELET COUNT 297 10^3/uL (150-450); RED BLOOD COUNT 4.43 10^6/uL (3.72-5.28); RED CELL DISTRIBUTION WIDTH 14.8 % (11.5-14.0); WHITE BLOOD COUNT 17.7 10^3/uL (4.0-10.5)
[2019-06-17 06:34] LABS: ABSOLUTE MONOCYTES # (MANUAL) 0.9 10^3/uL (0.1-1.4); BAND NEUTROPHILS % (MANUAL) 1 % (3-5); BASOPHILS % (MANUAL) 0 % (0-2); EOSINOPHILS % (MANUAL) 1 % (0-6); LYMPHOCYTES % (MANUAL) 28 % (13-45); MONOCYTES % (MANUAL) 5 % (3-13); SEGMENTED NEUTROPHILS % (MAN) 65 % (42-78); TOTAL CELLS COUNTED 100
[2019-06-17 06:36] LABS: ANION GAP 18 (5-19); ANISOCYTOSIS SLIGHT; CARBON DIOXIDE 13 mmol/L (22-30); OVALOCYTES SLIGHT; PLATELET COMMENT ADEQUATE; TOXIC GRANULATION SLIGHT
[2019-06-17 06:38] LABS: BURR CELLS 1+; HYPOCHROMASIA SLIGHT
[2019-06-17 06:43] LABS: POTASSIUM 2.9 mmol/L (3.6-5.0)
[2019-06-17] MEDS: INSULIN LISPRO 100 UNIT/ML 3 ML VIAL SUBCUT SCH ×4 (08:53→21:32)
[2019-06-17] MEDS: ENOXAPARIN SODIUM INJ 40 MG/0.4 ML DISP.SYRIN SUBCUT SCH (09:56)
[2019-06-17] MEDS: VALSARTAN 160 MG TABLET PO SCH (09:56)
[2019-06-17] MEDS: GLIPIZIDE XL 5 MG TAB.ER.24 PO SCH (09:56)
[2019-06-17] MEDS: AMLODIPINE BESYLATE 10 MG TABLET PO SCH (09:56)
[2019-06-17] MEDS: OXCARBAZEPINE 150 MG TABLET PO SCH ×2 (09:56→21:26)
[2019-06-17] MEDS: METFORMIN HCL 500 MG TABLET PO SCH (09:57)
[2019-06-17] MEDS: HYDRALAZINE HCL 50 MG TABLET PO SCH ×2 (09:57→18:01)
[2019-06-17] MEDS: METOPROLOL SUCCINATE 50 MG TAB.SR.24H PO SCH (09:57)
[2019-06-17] MEDS: CLOPIDOGREL BISULFATE 75 MG TABLET PO SCH (09:57)
[2019-06-17] MEDS ORDERED: POTASSI CL 20 MEQ/50 ML RIDER 20 MEQ/50 ML RTUPB IV SCH (16:00)
[2019-06-17] MEDS: POTASSIUM CHLORIDE 10 MEQ TABLET.ER PO SCH ×2 (18:01→21:25)
--- NOTE | 2019-06-17 20:23 | PDOC PROGRESS REPORT ---
Subjective Progress Note for:: 06/17/19 Subjective:: She has tachycardia, infusion rate is increased, she continues to be in isolation for rule out coronavirus, She continues to have diarrhea Reason For Visit: PNEUMONIA Physical Exam Vital Signs: Temp Pulse Resp BP Pulse Ox 99.3 F 113 H 32 H 144/83 H 95 06/17/19 16:16 06/17/19 19:00 06/17/19 16:16 06/17/19 16:16 06/17/19 16:16 Intake & Output 06/16/19 06/17/19 06/18/19 06:59 06:59 06:59 Intake Total 2610 3380 1177 Balance 2610 3380 1177 Weight 71.3 kg 70.7 kg General appearance: PRESENT: no acute distress Eye exam: PRESENT: PERRLA Respiratory exam: PRESENT: rhonchi Cardiovascular exam: PRESENT: +S1, +S2 GI/Abdominal exam: PRESENT: soft Neurological exam: PRESENT: alert Results Laboratory Results: 06/17/19 05:35 06/17/19 05:35 06/17/19 06/17/19 05:35 05:35 WBC 17.7 H RBC 4.43 Hgb 12.0 Hct 36.4 MCV 82 MCH 27.1 MCHC 33.0 RDW 14.8 H Plt Count 297 Seg Neutrophils % Not Reportable Sodium 139.6 Potassium 2.9 L* Chloride 109 H Carbon Dioxide 13 L Anion Gap 18 BUN 10 Creatinine 0.58 Est GFR ( Amer) > 60 Glucose 162 H Calcium 9.0 Total Bilirubin 0.4 AST 26 Alkaline Phosphatase 100 Total Protein 6.2 L Albumin 3.0 L 06/15/19 21:00 Throat Throat Culture - Final NORMAL MING 06/15/19 06/15/19 06/15/19 20:05 20:05 21:38 Creatine Kinase Cancelled CK-MB (CK-2) Cancelled 3.12 Troponin I Cancelled 0.022 NT-Pro-B Natriuret Pep 06/15/19 06/16/19 06/16/19 21:38 03:27 03:27 Creatine Kinase 77 144 H CK-MB (CK-2) 10.50 H Troponin I 0.021 NT-Pro-B Natriuret Pep 812 H Impressions: Chest X-Ray 06/15/19 20:15 IMPRESSION: Patchy bibasilar airspace disease. Consider atelectasis or pneumonia to include aspiration. 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 copyright 2011 [employer]- All Rights Reserved Assessment & Plan - Diagnosis (1) Pneumonia, unspecified organism Is this a current diagnosis for this admission?: Yes Plan: She will continue IV antibiotic (2) Metabolic acidosis Is this a current diagnosis for this admission?: Yes Plan: Still acidotic (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 Is this a current diagnosis for this admission?: Yes (4) Diarrhea Qualifiers: Diarrhea type: unspecified type Qualified Code(s): R19.7 - Diarrhea, uns pecified Is this a current diagnosis for this admission?: Yes Plan: The stool is negative for C. difficile (5) Bilateral cortical blindness Is this a current diagnosis for this admission?: Yes (6) Type 2 diabetes mellitus Qualifiers: Diabetes mellitus meterman insulin use: unspecified penitentiary insulin use status Diabetes mellitus complication status: with neurologic complications Diabetes mellitus complication detail: with polyneuropathy Qualified Code(s): E11.42 - Type 2 diabetes mellitus with diabetic polyneuropathy Is this a current diagnosis for this admission?: Yes - Time Time Spent with patient: 15-24 minutes Level of Care: TELE
[2019-06-17] MEDS: ATORVASTATIN CALCIUM 80 MG TABLET PO SCH (21:25)
[2019-06-18] MEDS: NORMAL SALINE 1000 ML 1,000 ML IV PRN ×2 (01:00→18:03)
[2019-06-18] MEDS: CEFEPIME HCL 2 GM in DEXTROSE 5%-WATER 50 ML IV SCH ×2 (05:00→17:12)
[2019-06-18 06:07] LABS: HEMATOCRIT 35.9 % (36.0-47.0); HEMOGLOBIN 12.2 g/dL (12.0-15.5); MEAN CORPUSCULAR HEMOGLOBIN 27.2 pg (27.0-33.4); MEAN CORPUSCULAR VOLUME 80 fl (80-97); PLATELET COUNT 272 10^3/uL (150-450); RED BLOOD COUNT 4.49 10^6/uL (3.72-5.28); RED CELL DISTRIBUTION WIDTH 14.5 % (11.5-14.0); WHITE BLOOD COUNT 17.5 10^3/uL (4.0-10.5)
[2019-06-18] MEDS: LEVOFLOXACIN 750 MG/D5W RTU 750 MG/150 ML RTUPB IV SCH (06:20)
[2019-06-18 06:29] LABS: ALBUMIN 2.9 g/dL (3.5-5.0); ALKALINE PHOSPHATASE 102 U/L (38-126); ANION GAP 11 (5-19); ASPARTATE AMINO TRANSFERASE 24 U/L (14-36); BILIRUBIN,DIRECT 0.1 mg/dL (0.0-0.4); BILIRUBIN,TOTAL 0.5 mg/dL (0.2-1.3); BLOOD UREA NITROGEN 4 mg/dL (7-20); CARBON DIOXIDE 20 mmol/L (22-30); CHLORIDE 107 mmol/L (98-107); GLUCOSE 142 mg/dL (75-110); POTASSIUM 3.3 mmol/L (3.6-5.0)
[2019-06-18 06:44] LABS: ABSOLUTE LYMPHOCYTES# (MANUAL) 3.3 10^3/uL (0.5-4.7); ABSOLUTE MONOCYTES # (MANUAL) 0.5 10^3/uL (0.1-1.4); BAND NEUTROPHILS % (MANUAL) 2 % (3-5); BASOPHILS % (MANUAL) 0 % (0-2); EOSINOPHILS % (MANUAL) 0 % (0-6); LYMPHOCYTES % (MANUAL) 19 % (13-45); MONOCYTES % (MANUAL) 3 % (3-13); SEGMENTED NEUTROPHILS % (MAN) 76 % (42-78); TOTAL CELLS COUNTED 100
[2019-06-18 06:46] LABS: ANISOCYTOSIS SLIGHT; BURR CELLS 1+; OVALOCYTES SLIGHT; PLATELET COMMENT ADEQUATE; POIKILOCYTOSIS 1+; TOXIC GRANULATION 1+
[2019-06-18] MEDS: ENOXAPARIN SODIUM INJ 40 MG/0.4 ML DISP.SYRIN SUBCUT SCH (09:07)
[2019-06-18] MEDS: INSULIN LISPRO 100 UNIT/ML 3 ML VIAL SUBCUT SCH ×4 (09:08→21:11)
[2019-06-18] MEDS: VALSARTAN 160 MG TABLET PO SCH (09:08)
[2019-06-18] MEDS: GLIPIZIDE XL 5 MG TAB.ER.24 PO SCH (09:08)
[2019-06-18] MEDS: CLOPIDOGREL BISULFATE 75 MG TABLET PO SCH (09:09)
[2019-06-18] MEDS: AMLODIPINE BESYLATE 10 MG TABLET PO SCH (09:09)
[2019-06-18] MEDS: OXCARBAZEPINE 150 MG TABLET PO SCH ×2 (09:09→21:13)
[2019-06-18] MEDS: METOPROLOL SUCCINATE 50 MG TAB.SR.24H PO SCH (09:09)
[2019-06-18] MEDS: HYDRALAZINE HCL 50 MG TABLET PO SCH ×2 (09:09→17:12)
[2019-06-18] MEDS: POTASSIUM CHLORIDE 10 MEQ TABLET.ER PO SCH ×2 (09:09→21:12)
[2019-06-18] MEDS: METFORMIN HCL 500 MG TABLET PO SCH (09:10)
--- NOTE | 2019-06-18 16:12 | PDOC PROGRESS REPORT ---
Subjective Progress Note for:: 06/18/19 Subjective:: Patient seen by the bedside, she has profuse diarrhea, negative for C. difficile she may need colonoscopy but she presently is in isolation for COVID 19 Rule out Reason For Visit: PNEUMONIA Physical Exam Vital Signs: Temp Pulse Resp BP Pulse Ox 98.8 F 100 16 171/88 H 97 06/18/19 15:21 06/18/19 15:21 06/18/19 15:21 06/18/19 15:21 06/18/19 15:21 Intake & Output 06/17/19 06/18/19 06/19/19 06:59 06:59 06:59 Intake Total 3380 2907 615 Balance 3380 2907 615 Weight 70.7 kg 69.8 kg General appearance: PRESENT: no acute distress Eye exam: PRESENT: PERRLA Respiratory exam: PRESENT: clear to auscultation sheri Cardiovascular exam: PRESENT: +S1, +S2 GI/Abdominal exam: PRESENT: soft Neurological exam: PRESENT: alert Results Laboratory Results: 06/18/19 05:44 06/18/19 05:44 06/18/19 06/18/19 05:44 05:44 WBC 17.5 H RBC 4.49 Hgb 12.2 Hct 35.9 L MCV 80 MCH 27.2 MCHC 34.0 RDW 14.5 H Plt Count 272 Seg Neutrophils % Not Reportable Sodium 137.6 Potassium 3.3 L Chloride 107 Carbon Dioxide 20 L Anion Gap 11 BUN 4 L Creatinine 0.42 L Est GFR ( Amer) > 60 Glucose 142 H Calcium 9.0 Total Bilirubin 0.5 AST 24 Alkaline Phosphatase 102 Total Protein 6.0 L Albumin 2.9 L 06/15/19 06/15/19 06/15/19 20:05 20:05 21:38 Creatine Kinase Cancelled CK-MB (CK-2) Cancelled 3.12 Troponin I Cancelled 0.022 NT-Pro-B Natriuret Pep 06/15/19 06/16/19 06/16/19 21:38 03:27 03:27 Creatine Kinase 77 144 H CK-MB (CK-2) 10.50 H Troponin I 0.021 NT-Pro-B Natriuret Pep 812 H Impressions: Chest X-Ray 06/15/19 20:15 IMPRESSION: Patchy bibasilar airspace disease. Consider atelectasis or pneumonia to include aspiration. 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 copyright 2010 [employer]- All Rights Reserved Assessment & Plan - Diagnosis (1) Pneumonia, unspecified organism Is this a current diagnosis for this admission?: Yes Plan: Continue IV antibiotic (2) Metabolic acidosis Is this a current diagnosis for this admission?: Yes Plan: Still acidotic (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 Is this a current diagnosis for this admission?: Yes (4) Diarrhea Qualifiers: Diarrhea type: unspecified type Qualified Code(s): R19.7 - Diarrhea, unspecified Is this a current diagnosis for this admission?: Yes Plan: Start Lomotil (5) Bilateral cortical blindness Is this a current diagnosis for this admission?: Yes (6) Type 2 diabetes mellitus Qualifiers: Diabetes mellitus alf insulin use: unspecified alf insulin use status Diabetes mellitus complication status: with neurologic complications Diabetes mellitus complication detail: with polyneuropathy Qualified Code(s): E11.42 - Type 2 diabetes mellitus with diabetic polyneuropathy Is this a current diagnosis for this admission?: Yes - Time Time Spent with patient: 35 or more minutes Level of Care: TELE Medications reviewed and adjusted accordingly: Yes
[2019-06-18] MEDS: DIPHENOXYLATE HCL/ATROP SULF 2.5-0.025 MG TABLET PO PRN (18:05)
[2019-06-18] MEDS: GUAIFENESIN SYRP 200 MG/10 ML UDC PO PRN (18:22)
[2019-06-18] MEDS: ATORVASTATIN CALCIUM 80 MG TABLET PO SCH (21:12)
[2019-06-19] MEDS: CEFEPIME HCL 2 GM in DEXTROSE 5%-WATER 50 ML IV SCH ×2 (05:00→17:02)
[2019-06-19] MEDS: LEVOFLOXACIN 750 MG/D5W RTU 750 MG/150 ML RTUPB IV SCH (05:46)
[2019-06-19 06:23] LABS: ABSOLUTE EOSINOPHILS # (AUTO) 0.1 10^3/uL (0.0-0.6); ABSOLUTE LYMPHOCYTES (AUTO) 2.2 10^3/uL (0.5-4.7); ABSOLUTE MONOCYTES (AUTO) 1.5 10^3/uL (0.1-1.4); ABSOLUTE NEUT (AUTO) 13.3 10^3/uL (1.7-8.2); BASOPHILS % (AUTO) 0.2 % (0-2); EOSINOPHILS % (AUTO) 0.4 % (0-6); HEMATOCRIT 34.2 % (36.0-47.0); HEMOGLOBIN 11.5 g/dL (12.0-15.5); LYMPHOCYTES % (AUTO) 12.7 % (13-45); MEAN CORPUSCULAR HEMOGLOBIN 26.8 pg (27.0-33.4); MEAN CORPUSCULAR HGB CONC 33.5 g/dL (32.0-36.0); MEAN CORPUSCULAR VOLUME 80 fl (80-97); MONOCYTES % (AUTO) 8.9 % (3-13); PLATELET COUNT 261 10^3/uL (150-450); RED BLOOD COUNT 4.27 10^6/uL (3.72-5.28); RED CELL DISTRIBUTION WIDTH 14.7 % (11.5-14.0); SEGMENTED NEUTROPHILS % (AUTO) 77.8 % (42-78); TOTAL CELLS COUNTED % (AUTO) 100 %; WHITE BLOOD COUNT 17.1 10^3/uL (4.0-10.5)
[2019-06-19 06:42] LABS: ALBUMIN 2.6 g/dL (3.5-5.0); ALKALINE PHOSPHATASE 91 U/L (38-126); ANION GAP 10 (5-19); ASPARTATE AMINO TRANSFERASE 22 U/L (14-36); BILIRUBIN,TOTAL 0.5 mg/dL (0.2-1.3); BLOOD UREA NITROGEN 4 mg/dL (7-20); CALCIUM 8.5 mg/dL (8.4-10.2); CARBON DIOXIDE 21 mmol/L (22-30); CHLORIDE 105 mmol/L (98-107); GLUCOSE 224 mg/dL (75-110); POTASSIUM 3.3 mmol/L (3.6-5.0); TOTAL PROTEIN 5.6 g/dL (6.3-8.2)
[2019-06-19] MEDS: INSULIN LISPRO 100 UNIT/ML 3 ML VIAL SUBCUT SCH ×4 (08:50→21:11)
[2019-06-19] MEDS: METFORMIN HCL 500 MG TABLET PO SCH (09:14)
[2019-06-19] MEDS: OXCARBAZEPINE 150 MG TABLET PO SCH ×2 (09:14→21:11)
[2019-06-19] MEDS: CLOPIDOGREL BISULFATE 75 MG TABLET PO SCH (09:14)
[2019-06-19] MEDS: POTASSIUM CHLORIDE 10 MEQ TABLET.ER PO SCH ×2 (09:14→21:11)
[2019-06-19] MEDS: VALSARTAN 160 MG TABLET PO SCH (09:14)
[2019-06-19] MEDS: GLIPIZIDE XL 5 MG TAB.ER.24 PO SCH (09:14)
[2019-06-19] MEDS: METOPROLOL SUCCINATE 50 MG TAB.SR.24H PO SCH (09:15)
[2019-06-19] MEDS: AMLODIPINE BESYLATE 10 MG TABLET PO SCH (09:15)
[2019-06-19] MEDS: ENOXAPARIN SODIUM INJ 40 MG/0.4 ML DISP.SYRIN SUBCUT SCH (09:15)
[2019-06-19] MEDS: HYDRALAZINE HCL 50 MG TABLET PO SCH ×2 (09:15→17:02)
[2019-06-19] MEDS: GUAIFENESIN SYRP 200 MG/10 ML UDC PO PRN ×2 (10:59→16:15)
[2019-06-19] MEDS: NORMAL SALINE 1000 ML 1,000 ML IV PRN ×2 (10:59→21:17)
[2019-06-19] MEDS ORDERED: IPRATROPIUM/ALBUTEROL 0.5-2.5 MG/3 ML AMPUL NEB PRN (12:38)
--- NOTE | 2019-06-19 13:39 | RADIOLOGY REPORT (SQ) ---
EXAM DESCRIPTION: CHEST SINGLE VIEW IMAGES COMPLETED DATE/TIME: 06/19/2019 1:09 pm REASON FOR STUDY: PNEUMONIA COMPARISON: 06/15/2019. FINDINGS: AP portable upright single view. Improved left basilar aeration. Slight worsening aeration right base, focal infiltrate looks progressive. Possibly accentuated by lo wer lung volumes. Stable cardiomediastinal silhouette, otherwise stable exam. TECHNICAL DOCUMENTATION: JOB ID: [id number] Reading location - IP/workstation name: [email or web address]
--- NOTE | 2019-06-19 14:43 | PDOC PROGRESS REPORT ---
Subjective Progress Note for:: 06/21/19 Subjective:: Patient still symptomatic Repeat chest x-ray done Reason For Visit: PNEUMONIA Physical Exam Vital Signs: Temp Pulse Resp BP Pulse Ox 99.3 F 90 16 147/99 H 94 06/19/19 07:41 06/19/19 14:00 06/19/19 07:41 06/19/19 07:41 06/19/19 07:41 Intake & Output 06/18/19 06/19/19 06/20/19 06:59 06:59 06:59 Intake Total 2907 4045 665 Output Total 450 Balance 2907 4045 215 Weight 69.8 kg 70.3 kg General appearance: PRESENT: no acute distress Eye exam: PRESENT: PERRLA Respiratory exam: PRESENT: clear to auscultation sheri Cardiovascular exam: PRESENT: +S1, +S2 GI/Abdominal exam: PRESENT: soft Neurological exam: PRESENT: alert Results Laboratory Results: 06/19/19 06:00 06/19/19 06:00 06/19/19 06/19/19 06:00 06:00 WBC 17.1 H RBC 4.27 Hgb 11.5 L Hct 34.2 L MCV 80 MCH 26.8 L MCHC 33.5 RDW 14.7 H Plt Count 261 Seg Neutrophils % 77.8 Sodium 135.6 L Potassium 3.3 L Chloride 105 Carbon Dioxide 21 L Anion Gap 10 BUN 4 L Creatinine 0.36 L Est GFR ( Amer) > 60 Glucose 224 H Calcium 8.5 Total Bilirubin 0.5 AST 22 Alkaline Phosphatase 91 Total Protein 5.6 L Albumin 2.6 L 06/16/19 07:15 Nephrostomy - Both Urine Culture - Final Enterococcus Faecalis(Group D) Staphylococcus [place]ensis Escherichia Coli Corynebacterium Species 06/15/19 06/15/19 06/15/19 20:05 20:05 21:38 Creatine Kinase Cancelled CK-MB (CK-2) Cancelled 3.12 Troponin I Cancelled 0.022 NT-Pro-B Natriuret Pep 06/15/19 06/16/19 06/16/19 21:38 03:27 03:27 Creatine Kinase 77 144 H CK-MB (CK-2) 10.50 H Troponin I 0.021 NT-Pro-B Natriuret Pep 812 H Assessment & Plan - Diagnosis (1) Pneumonia, unspecified organism Is this a current diagnosis for this admission?: Yes Plan: Continue IV antibiotic Patient still in isolation for rule out, COVID 19 (2) Metabolic acidosis Is this a current diagnosis for this admission?: Yes Plan: Patient no longer acidotic (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 Is this a current diagnosis for this admission?: Yes (4) Diarrhea Qualifiers: Diarrhea type: unspecified type Qualified Code(s): R19.7 - Diarrhea, unspecified Is this a current diagnosis for this admission?: Yes Plan: Improved (5) Bilateral cortical blindness Is this a current diagnosis for this admission?: Yes (6) Type 2 diabetes mellitus Qualifiers: Diabetes mellitus medical terminologist insulin use: unspecified longterm insulin use status Diabetes mellitus complication status: with neurologic complications Diabetes mellitus complication detail: with polyneuropathy Qualified Code(s): E11.42 - Type 2 diabetes mellitus with diabetic polyneuropathy Is this a current diagnosis for this admission?: Yes (7) Hypokalemia Is this a current diagnosis for this admission?: Yes Plan: Replace potassium - Time Time Spent with patient: 25-34 minutes Level of Care: IMCU
[2019-06-19] MEDS: ATORVASTATIN CALCIUM 80 MG TABLET PO SCH (21:11)
[2019-06-20] MEDS: CEFEPIME HCL 2 GM in DEXTROSE 5%-WATER 50 ML IV SCH ×2 (05:16→17:39)
[2019-06-20] MEDS: LEVOFLOXACIN 750 MG/D5W RTU 750 MG/150 ML RTUPB IV SCH (07:10)
[2019-06-20] MEDS: ENOXAPARIN SODIUM INJ 40 MG/0.4 ML DISP.SYRIN SUBCUT SCH (10:23)
[2019-06-20] MEDS: METFORMIN HCL 500 MG TABLET PO SCH (10:23)
[2019-06-20] MEDS: INSULIN LISPRO 100 UNIT/ML 3 ML VIAL SUBCUT SCH ×4 (10:23→21:49)
[2019-06-20] MEDS: METOPROLOL SUCCINATE 50 MG TAB.SR.24H PO SCH (10:24)
[2019-06-20] MEDS: AMLODIPINE BESYLATE 10 MG TABLET PO SCH (10:24)
[2019-06-20] MEDS: HYDRALAZINE HCL 50 MG TABLET PO SCH ×2 (10:24→17:39)
[2019-06-20] MEDS: POTASSIUM CHLORIDE 10 MEQ TABLET.ER PO SCH ×2 (10:25→21:49)
[2019-06-20] MEDS: VALSARTAN 160 MG TABLET PO SCH (10:25)
[2019-06-20] MEDS: GLIPIZIDE XL 5 MG TAB.ER.24 PO SCH (10:26)
[2019-06-20] MEDS: CLOPIDOGREL BISULFATE 75 MG TABLET PO SCH (10:26)
[2019-06-20] MEDS: OXCARBAZEPINE 150 MG TABLET PO SCH ×2 (10:27→21:51)
[2019-06-20] MEDS: NORMAL SALINE 1000 ML 1,000 ML IV PRN (11:00)
[2019-06-20] MEDS: GUAIFENESIN SYRP 200 MG/10 ML UDC PO PRN (14:43)
[2019-06-20] MEDS: DIPHENOXYLATE HCL/ATROP SULF 2.5-0.025 MG TABLET PO PRN (14:44)
--- NOTE | 2019-06-20 21:21 | PDOC PROGRESS REPORT ---
Subjective Progress Note for:: 06/20/19 Subjective:: she still have diarrhea ,the COVID 19 Tests not back yet Reason For Visit: PNEUMONIA Physical Exam Vital Signs: Temp Pulse Resp BP Pulse Ox 97.8 F 94 24 H 110/76 98 06/20/19 19:40 06/20/19 19:40 06/20/19 19:40 06/20/19 19:40 06/20/19 19:40 Intake & Output 06/19/19 06/20/19 06/21/19 06:59 06:59 06:59 Intake Total 4045 2705 1875 Output Total 1000 Balance 4045 1705 1875 Weight 70.3 kg 72.8 kg General appearance: PRESENT: no acute distress Eye exam: PRESENT: PERRLA Respiratory exam: PRESENT: clear to auscultation sheri Cardiovascular exam: PRESENT: +S1, +S2 GI/Abdominal exam: PRESENT: soft Neurological exam: PRESENT: alert Results Laboratory Results: 06/19/19 06:00 06/19/19 06:00 06/15/19 06/15/19 06/15/19 20:05 20:05 21:38 Creatine Kinase Cancelled CK-MB (CK-2) Cancelled 3.12 Troponin I Cancelled 0.022 NT-Pro-B Natriuret Pep 06/15/19 06/16/19 06/16/19 21:38 03:27 03:27 Creatine Kinase 77 144 H CK-MB (CK-2) 10.50 H Troponin I 0.021 NT-Pro-B Natriuret Pep 812 H Assessment & Plan - Diagnosis (1) Pneumonia, unspecified organism Is this a current diagnosis for this admission?: Yes Plan: Continue IV antibiotic Patient still in isolation for rule out, COVID 19 (2) Metabolic acidosis Is this a current diagnosis for this admission?: Yes (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 Is this a current diagnosis for this admission?: Yes (4) Diarrhea Qualifiers: Diarrhea type: unspecified type Qualified Code(s): R19.7 - Diarrhea, unspecified Is this a current diagnosis for this admission?: Yes Plan: Consult surgery for colonoscopy, persistent diarrhea negative for infectious cause not responding to Lomotil (5) Bilateral cortical blindness Is this a current diagnosis for this admission?: Yes (6) Type 2 diabetes mellitus Qualifiers: Diabetes mellitus director long term care insulin use: unspecified [place] [facility] insulin use status Diabetes mellitus complication status: with neurologic complications Diabetes mellitus complication detail: with polyneuropathy Qualified Code(s): E11.42 - Type 2 diabetes mellitus with diabetic polyneuropathy Is this a current diagnosis for this admission?: Yes (7) Hypokalemia Is this a current diagnosis for this admission?: Yes - Time Time Spent with patient: 35 or more minutes Level of Care: TELE
[2019-06-20] MEDS: ATORVASTATIN CALCIUM 80 MG TABLET PO SCH (21:50)
[2019-06-21] MEDS: NORMAL SALINE 1000 ML 1,000 ML IV PRN (05:58)
[2019-06-21] MEDS: CEFEPIME HCL 2 GM in DEXTROSE 5%-WATER 50 ML IV SCH ×2 (06:00→17:04)
[2019-06-21] MEDS: LEVOFLOXACIN 750 MG/D5W RTU 750 MG/150 ML RTUPB IV SCH (06:00)
--- NOTE | 2019-06-21 06:18 | Progress Note ---
Provider Note Provider Note: The pt is admitted for pneumonia and rule-out COVID-19. Consult requested for colonoscopy for benign diarrhea. Please rule-out COVID-19 first. May followup as OUTPATIENT for colonoscopy. Surgery will sign off.
[2019-06-21] MEDS: INSULIN LISPRO 100 UNIT/ML 3 ML VIAL SUBCUT SCH ×4 (07:30→21:25)
[2019-06-21] MEDS: ENOXAPARIN SODIUM INJ 40 MG/0.4 ML DISP.SYRIN SUBCUT SCH (10:33)
[2019-06-21] MEDS: AMLODIPINE BESYLATE 10 MG TABLET PO SCH (10:33)
[2019-06-21] MEDS: METOPROLOL SUCCINATE 50 MG TAB.SR.24H PO SCH (10:34)
[2019-06-21] MEDS: POTASSIUM CHLORIDE 10 MEQ TABLET.ER PO SCH ×2 (10:34→21:24)
[2019-06-21] MEDS: HYDRALAZINE HCL 50 MG TABLET PO SCH ×2 (10:34→17:04)
[2019-06-21] MEDS: VALSARTAN 160 MG TABLET PO SCH (10:34)
[2019-06-21] MEDS: OXCARBAZEPINE 150 MG TABLET PO SCH ×2 (10:35→21:24)
[2019-06-21] MEDS: GLIPIZIDE XL 5 MG TAB.ER.24 PO SCH (10:35)
[2019-06-21] MEDS: METFORMIN HCL 500 MG TABLET PO SCH (10:35)
[2019-06-21] MEDS: CLOPIDOGREL BISULFATE 75 MG TABLET PO SCH (10:35)
[2019-06-21] MEDS: GUAIFENESIN SYRP 200 MG/10 ML UDC PO PRN (10:35)
--- NOTE | 2019-06-21 20:33 | PDOC PROGRESS REPORT ---
Subjective Progress Note for:: 06/21/19 Subjective:: Patient seen by the bedside, she continues to have diarrhea the coronavirus test is not back yet Reason For Visit: PNEUMONIA Physical Exam Vital Signs: Temp Pulse Resp BP Pulse Ox 99.2 F 89 15 166/90 H 95 06/21/19 16:59 06/21/19 19:00 06/21/19 16:59 06/21/19 16:59 06/21/19 16:59 Intake & Output 06/20/19 06/21/19 06/22/19 06:59 06:59 06:59 Intake Total 2705 2975 1510 Output Total 1000 300 Balance 1705 2975 1210 Weight 72.8 kg 70.3 kg General appearance: PRESENT: no acute distress Eye exam: PRESENT: PERRLA Respiratory exam: PRESENT: clear to auscultation sheri Cardiovascular exam: PRESENT: +S1, +S2 GI/Abdominal exam: PRESENT: soft Neurological exam: PRESENT: alert Results Laboratory Results: 06/19/19 06:00 06/19/19 06:00 06/15/19 22:40 Blood Blood Culture - Final NO GROWTH IN 5 DAYS 06/15/19 21:38 Blood Blood Culture - Final NO GROWTH IN 5 DAYS 06/15/19 06/15/19 06/15/19 20:05 20:05 21:38 Creatine Kinase Cancelled CK-MB (CK-2) Cancelled 3.12 Troponin I Cancelled 0.022 NT-Pro-B Natriuret Pep 06/15/19 06/16/19 06/16/19 21:38 03:27 03:27 Creatine Kinase 77 144 H CK-MB (CK-2) 10.50 H Troponin I 0.021 NT-Pro-B Natriuret Pep 812 H Assessment & Plan - Diagnosis (1) Pneumonia, unspecified organism Is this a current diagnosis for this admission?: Yes Plan: Continue IV antibiotic (2) Metabolic acidosis Is this a current diagnosis for this admission?: Yes (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 Is this a current diagnosis for this admission?: Yes (4) Diarrhea Qualifiers: Diarrhea type: unspecified type Qualified Code(s): R19.7 - Diarrhea, unspecified Is this a current diagnosis for this admission?: Yes (5) Bilateral cortical blindness Is this a current diagnosis for this admission?: Yes (6) Type 2 diabetes mellitus Qualifiers: Diabetes mellitus rat exterminator insulin use: unspecified rat exterminator insulin use status Diabetes mellitus complication status: with neurologic complications Diabetes mellitus complication detail: with polyneuropathy Qualified Code(s): E11.42 - Type 2 diabetes mellitus with diabetic polyneuropathy Is this a current diagnosis for this admission?: Yes (7) Hypokalemia Is this a current diagnosis for this admission?: Yes - Time Time Spent with patient: 25-34 minutes Level of Care: IMCU
[2019-06-21] MEDS: ATORVASTATIN CALCIUM 80 MG TABLET PO SCH (21:24)
[2019-06-22] MEDS: NORMAL SALINE 1000 ML 1,000 ML IV PRN ×2 (03:17→17:24)
[2019-06-22] MEDS: CEFEPIME HCL 2 GM in DEXTROSE 5%-WATER 50 ML IV SCH ×2 (05:17→17:23)
[2019-06-22] MEDS: LEVOFLOXACIN 750 MG/D5W RTU 750 MG/150 ML RTUPB IV SCH (05:48)
[2019-06-22] MEDS: GUAIFENESIN SYRP 200 MG/10 ML UDC PO PRN (06:54)
[2019-06-22] MEDS: INSULIN LISPRO 100 UNIT/ML 3 ML VIAL SUBCUT SCH ×4 (08:26→21:34)
[2019-06-22] MEDS: VALSARTAN 160 MG TABLET PO SCH (09:18)
[2019-06-22] MEDS: METOPROLOL SUCCINATE 50 MG TAB.SR.24H PO SCH (09:18)
[2019-06-22] MEDS: CLOPIDOGREL BISULFATE 75 MG TABLET PO SCH (09:18)
[2019-06-22] MEDS: METFORMIN HCL 500 MG TABLET PO SCH (09:19)
[2019-06-22] MEDS: AMLODIPINE BESYLATE 10 MG TABLET PO SCH (09:19)
[2019-06-22] MEDS: HYDRALAZINE HCL 50 MG TABLET PO SCH ×2 (09:19→17:23)
[2019-06-22] MEDS: ENOXAPARIN SODIUM INJ 40 MG/0.4 ML DISP.SYRIN SUBCUT SCH (09:20)
[2019-06-22] MEDS: OXCARBAZEPINE 150 MG TABLET PO SCH ×2 (09:20→21:34)
[2019-06-22] MEDS: GLIPIZIDE XL 5 MG TAB.ER.24 PO SCH (09:20)
[2019-06-22] MEDS: POTASSIUM CHLORIDE 10 MEQ TABLET.ER PO SCH ×2 (09:20→21:34)
--- NOTE | 2019-06-22 17:10 | PDOC PROGRESS REPORT ---
Subjective Progress Note for:: 06/22/19 Subjective:: Patient seen by the bedside, she is she had episode of a coughing spell last night that lasted for few minutes Reason For Visit: PNEUMONIA Physical Exam Vital Signs: Temp Pulse Resp BP Pulse Ox 98.9 F 86 24 H 138/80 H 100 06/22/19 12:16 06/22/19 14:00 06/22/19 12:16 06/22/19 12:16 06/22/19 12:16 Intake & Output 06/21/19 06/22/19 06/23/19 06:59 06:59 06:59 Intake Total 2975 1750 200 Output Total 750 Balance 2975 1000 200 Weight 70.3 kg 74.1 kg General appearance: PRESENT: no acute distress Eye exam: PRESENT: PERRLA Respiratory exam: PRESENT: clear to auscultation sheri Cardiovascular exam: PRESENT: +S1, +S2 GI/Abdominal exam: PRESENT: soft Neurological exam: PRESENT: alert Results Laboratory Results: 06/19/19 06:00 06/19/19 06:00 06/15/19 06/15/19 06/15/19 20:05 20:05 21:38 Creatine Kinase Cancelled CK-MB (CK-2) Cancelled 3.12 Troponin I Cancelled 0.022 NT-Pro-B Natriuret Pep 06/15/19 06/16/19 06/16/19 21:38 03:27 03:27 Creatine Kinase 77 144 H CK-MB (CK-2) 10.50 H Troponin I 0.021 NT-Pro-B Natriuret Pep 812 H Assessment & Plan - Diagnosis (1) Pneumonia, unspecified organism Is this a current diagnosis for this admission?: Yes Plan: Continue IV antibiotic (2) Metabolic acidosis Is this a current diagnosis for this admission?: Yes (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 Is this a current diagnosis for this admission?: Yes (4) Diarrhea Qualifiers: Diarrhea type: unspecified type Qualified Code(s): R19.7 - Diarrhea, unspecified Is this a current diagnosis for this admission?: Yes (5) Bilateral cortical blindness Is this a current diagnosis for this admission?: Yes (6) Type 2 diabetes mellitus Qualifiers: Diabetes mellitus group home insulin use: unspecified supervisor intermediates insulin use status Diabetes mellitus complication status: with neurologic complications Diabetes mellitus complication detail: with polyneuropathy Qualified Code(s): E11.42 - Type 2 diabetes mellitus with diabetic polyneuropathy Is this a current diagnosis for this admission?: Yes (7) Hypokalemia Is this a current diagnosis for this admission?: Yes - Time Time Spent with patient: 15-24 minutes Level of Care: IMCU
[2019-06-22] MEDS: ATORVASTATIN CALCIUM 80 MG TABLET PO SCH (21:34)
[2019-06-22 22:40] LABS: ABSOLUTE BASOPHILS # (AUTO) 0.1 10^3/uL (0.0-0.2); ABSOLUTE EOSINOPHILS # (AUTO) 0.3 10^3/uL (0.0-0.6); ABSOLUTE LYMPHOCYTES (AUTO) 2.9 10^3/uL (0.5-4.7); ABSOLUTE MONOCYTES (AUTO) 0.9 10^3/uL (0.1-1.4); ABSOLUTE NEUT (AUTO) 5.7 10^3/uL (1.7-8.2); BASOPHILS % (AUTO) 0.8 % (0-2); EOSINOPHILS % (AUTO) 2.9 % (0-6); HEMATOCRIT 33.8 % (36.0-47.0); HEMOGLOBIN 11.4 g/dL (12.0-15.5); LYMPHOCYTES % (AUTO) 29.1 % (13-45); MEAN CORPUSCULAR HEMOGLOBIN 27.2 pg (27.0-33.4); MEAN CORPUSCULAR HGB CONC 33.7 g/dL (32.0-36.0); MEAN CORPUSCULAR VOLUME 81 fl (80-97); MONOCYTES % (AUTO) 9.2 % (3-13); PLATELET COUNT 285 10^3/uL (150-450); RED BLOOD COUNT 4.19 10^6/uL (3.72-5.28); RED CELL DISTRIBUTION WIDTH 14.6 % (11.5-14.0); TOTAL CELLS COUNTED % (AUTO) 100 %; WHITE BLOOD COUNT 9.9 10^3/uL (4.0-10.5)
[2019-06-22 23:04] LABS: ALBUMIN 2.9 g/dL (3.5-5.0); ALKALINE PHOSPHATASE 86 U/L (38-126); ANION GAP 6 (5-19); ASPARTATE AMINO TRANSFERASE 28 U/L (14-36); BILIRUBIN,DIRECT 0.2 mg/dL (0.0-0.4); BILIRUBIN,TOTAL 0.2 mg/dL (0.2-1.3); BLOOD UREA NITROGEN 7 mg/dL (7-20); CALCIUM 8.6 mg/dL (8.4-10.2); CARBON DIOXIDE 25 mmol/L (22-30); CHLORIDE 105 mmol/L (98-107); GLUCOSE 136 mg/dL (75-110); POTASSIUM 4.2 mmol/L (3.6-5.0); TOTAL PROTEIN 6.4 g/dL (6.3-8.2)
[2019-06-23] MEDS: GUAIFENESIN SYRP 200 MG/10 ML UDC PO PRN (00:04)
[2019-06-23 05:44] LABS: ABSOLUTE EOSINOPHILS # (AUTO) 0.3 10^3/uL (0.0-0.6); ABSOLUTE LYMPHOCYTES (AUTO) 2.3 10^3/uL (0.5-4.7); ABSOLUTE MONOCYTES (AUTO) 0.9 10^3/uL (0.1-1.4); ABSOLUTE NEUT (AUTO) 5.6 10^3/uL (1.7-8.2); BASOPHILS % (AUTO) 0.5 % (0-2); EOSINOPHILS % (AUTO) 2.9 % (0-6); HEMATOCRIT 32.5 % (36.0-47.0); HEMOGLOBIN 10.9 g/dL (12.0-15.5); LYMPHOCYTES % (AUTO) 24.8 % (13-45); MEAN CORPUSCULAR HEMOGLOBIN 26.7 pg (27.0-33.4); MEAN CORPUSCULAR HGB CONC 33.5 g/dL (32.0-36.0); MEAN CORPUSCULAR VOLUME 80 fl (80-97); MONOCYTES % (AUTO) 10.1 % (3-13); PLATELET COUNT 275 10^3/uL (150-450); RED BLOOD COUNT 4.07 10^6/uL (3.72-5.28); RED CELL DISTRIBUTION WIDTH 14.7 % (11.5-14.0); SEGMENTED NEUTROPHILS % (AUTO) 61.7 % (42-78); TOTAL CELLS COUNTED % (AUTO) 100 %; WHITE BLOOD COUNT 9.1 10^3/uL (4.0-10.5)
[2019-06-23 06:06] LABS: ALBUMIN 2.6 g/dL (3.5-5.0); ALKALINE PHOSPHATASE 83 U/L (38-126); ASPARTATE AMINO TRANSFERASE 26 U/L (14-36); BILIRUBIN,TOTAL 0.2 mg/dL (0.2-1.3); BLOOD UREA NITROGEN 4 mg/dL (7-20); CALCIUM 8.6 mg/dL (8.4-10.2); CARBON DIOXIDE 23 mmol/L (22-30); CHLORIDE 110 mmol/L (98-107); GLUCOSE 116 mg/dL (75-110); POTASSIUM 4.3 mmol/L (3.6-5.0); TOTAL PROTEIN 5.7 g/dL (6.3-8.2)
[2019-06-23 06:26] LABS: ANION GAP 4 (5-19)
[2019-06-23] MEDS: CEFEPIME HCL 2 GM in DEXTROSE 5%-WATER 50 ML IV SCH (06:27)
[2019-06-23] MEDS: NORMAL SALINE 1000 ML 1,000 ML IV PRN ×2 (06:28→16:58)
[2019-06-23] MEDS: ENOXAPARIN SODIUM INJ 40 MG/0.4 ML DISP.SYRIN SUBCUT SCH (09:13)
[2019-06-23] MEDS: POTASSIUM CHLORIDE 10 MEQ TABLET.ER PO SCH ×2 (09:14→21:22)
[2019-06-23] MEDS: CLOPIDOGREL BISULFATE 75 MG TABLET PO SCH (09:15)
[2019-06-23] MEDS: METOPROLOL SUCCINATE 50 MG TAB.SR.24H PO SCH (09:15)
[2019-06-23] MEDS: AMLODIPINE BESYLATE 10 MG TABLET PO SCH (09:15)
[2019-06-23] MEDS: GLIPIZIDE XL 5 MG TAB.ER.24 PO SCH (09:15)
[2019-06-23] MEDS: OXCARBAZEPINE 150 MG TABLET PO SCH ×2 (09:15→21:22)
[2019-06-23] MEDS: HYDRALAZINE HCL 50 MG TABLET PO SCH ×2 (09:16→17:00)
[2019-06-23] MEDS: INSULIN LISPRO 100 UNIT/ML 3 ML VIAL SUBCUT SCH ×4 (09:16→21:23)
[2019-06-23] MEDS: METFORMIN HCL 500 MG TABLET PO SCH (09:16)
[2019-06-23] MEDS: VALSARTAN 160 MG TABLET PO SCH (09:16)
--- NOTE | 2019-06-23 21:05 | PDOC PROGRESS REPORT ---
Subjective Progress Note for:: 06/23/19 Subjective:: Patient continued to improve no more diarrhea, white blood cell normalized Reason For Visit: PNEUMONIA Physical Exam Vital Signs: Temp Pulse Resp BP Pulse Ox 97.6 F 91 20 142/73 H 97 06/23/19 12:59 06/23/19 14:00 06/23/19 12:59 06/23/19 12:59 06/23/19 12:59 Intake & Output 06/22/19 06/23/19 06/24/19 06:59 06:59 06:59 Intake Total 1750 3220 1270 Output Total 750 Balance 1000 3220 1270 Weight 74.1 kg 74.1 kg General appearance: PRESENT: no acute distress Eye exam: PRESENT: PERRLA Respiratory exam: PRESENT: clear to auscultation sheri Cardiovascular exam: PRESENT: +S1, +S2 GI/Abdominal exam: PRESENT: soft Results Laboratory Results: 06/23/19 04:56 06/23/19 04:56 06/22/19 06/22/19 06/23/19 22:31 22:31 04:56 WBC 9.9 9.1 RBC 4.19 4.07 Hgb 11.4 L 10.9 L Hct 33.8 L 32.5 L MCV 81 80 MCH 27.2 26.7 L MCHC 33.7 33.5 RDW 14.6 H 14.7 H Plt Count 285 275 Seg Neutrophils % 58.0 61.7 Sodium 136.4 L Potassium 4.2 Chloride 105 Carbon Dioxide 25 Anion Gap 6 BUN 7 Creatinine 0.48 L Est GFR ( Amer) > 60 Glucose 136 H Calcium 8.6 Total Bilirubin 0.2 AST 28 Alkaline Phosphatase 86 Total Protein 6.4 Albumin 2.9 L 06/23/19 04:56 WBC RBC Hgb Hct MCV MCH MCHC RDW Plt Count Seg Neutrophils % Sodium 137.3 Potassium 4.3 Chloride 110 H Carbon Dioxide 23 Anion Gap 4 L BUN 4 L Creatinine 0.44 L Est GFR ( Amer) > 60 Glucose 116 H Calcium 8.6 Total Bilirubin 0.2 AST 26 Alkaline Phosphatase 83 Total Protein 5.7 L Albumin 2.6 L 06/15/19 06/15/19 06/15/19 20:05 20:05 21:38 Creatine Kinase Cancelled CK-MB (CK-2) Cancelled 3.12 Troponin I Cancelled 0.022 NT-Pro-B Natriuret Pep 06/15/19 06/16/19 06/16/19 21:38 03:27 03:27 Creatine Kinase 77 144 H CK-MB (CK-2) 10.50 H Troponin I 0.021 NT-Pro-B Natriuret Pep 812 H 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 Is this a current diagnosis for this admission?: Yes (4) Diarrhea Qualifiers: Diarrhea type: unspecified type Qualified Code(s): R19.7 - Diarrhea, unspecified Is this a current diagnosis for this admission?: Yes (5) Bilateral cortical blindness Is this a current diagnosis for this admission?: Yes (6) Type 2 diabetes mellitus Qualifiers: Diabetes mellitus long-term insulin use: unspecified long-term insulin use status Diabetes mellitus complication status: with neurologic complications Diabetes mellitus complication detail: with polyneuropathy Qualified Code(s): E11.42 - Type 2 diabetes mellitus with diabetic polyneuropathy Is this a current diagnosis for this admission?: Yes (7) Hypokalemia Is this a current diagnosis for this admission?: Yes - Time Time Spent with patient: 25-34 minutes Level of Care: IMCU - Plan Summary Plan Summary: Get a chest x-ray patient has 7 days of antibiotic for pneumonia, still waiting for results of coronavirus testing
[2019-06-23] MEDS: ATORVASTATIN CALCIUM 80 MG TABLET PO SCH (21:22)
--- NOTE | 2019-06-23 22:06 | RADIOLOGY REPORT (SQ) ---
EXAM DESCRIPTION: AP portable radiograph of the chest CLINICAL HISTORY: 59 years Female, cough COMPARISON: Portable view of the chest 06/19/2019 FINDINGS: Lungs: There is linear patchy infiltrate in the right lung base which is improved when compared to the previous examination. No pneumothorax or pleural effusion. The left lung appears clear. Mediastinum: Heart size is enlarged. There is tortuosity or ectasia of the thoracic aorta. Bones: Osseous structures are unchanged IMPRESSION: Resolving infiltrate in the right lung base.
[2019-06-24] MEDS: NORMAL SALINE 1000 ML 1,000 ML IV PRN ×2 (03:17→13:44)
[2019-06-24] MEDS: INSULIN LISPRO 100 UNIT/ML 3 ML VIAL SUBCUT SCH ×4 (08:49→22:29)
[2019-06-24] MEDS: OXCARBAZEPINE 150 MG TABLET PO SCH ×2 (09:45→22:37)
[2019-06-24] MEDS: VALSARTAN 160 MG TABLET PO SCH (09:45)
[2019-06-24] MEDS: HYDRALAZINE HCL 50 MG TABLET PO SCH ×2 (09:46→17:05)
[2019-06-24] MEDS: AMLODIPINE BESYLATE 10 MG TABLET PO SCH (09:46)
[2019-06-24] MEDS: METFORMIN HCL 500 MG TABLET PO SCH (09:46)
[2019-06-24] MEDS: METOPROLOL SUCCINATE 50 MG TAB.SR.24H PO SCH (09:46)
[2019-06-24] MEDS: POTASSIUM CHLORIDE 10 MEQ TABLET.ER PO SCH ×2 (09:46→22:36)
[2019-06-24] MEDS: GLIPIZIDE XL 5 MG TAB.ER.24 PO SCH (09:47)
[2019-06-24] MEDS: CLOPIDOGREL BISULFATE 75 MG TABLET PO SCH (09:47)
[2019-06-24] MEDS: ENOXAPARIN SODIUM INJ 40 MG/0.4 ML DISP.SYRIN SUBCUT SCH (09:47)
[2019-06-24] MEDS: GUAIFENESIN SYRP 200 MG/10 ML UDC PO PRN ×2 (13:33→22:35)
--- NOTE | 2019-06-24 21:15 | PDOC PROGRESS REPORT ---
Subjective Progress Note for:: 06/24/19 Subjective:: Patient seen by the bedside, she has intertriginous dermatitis in the gluteal fold, Diarrhea is improved, pneumonia is better, patient off antibiotic x-ray is much better, awaiting COVID 19 test result Reason For Visit: PNEUMONIA Physical Exam Vital Signs: Temp Pulse Resp BP Pulse Ox 97.9 F 92 18 149/83 H 98 06/24/19 20:00 06/24/19 20:00 06/24/19 20:00 06/24/19 20:00 06/24/19 20:00 Intake & Output 06/23/19 06/24/19 06/25/19 06:59 06:59 06:59 Intake Total 3220 2370 1480 Balance 3220 2370 1480 Weight 74.1 kg 70.8 kg General appearance: PRESENT: no acute distress Eye exam: PRESENT: PERRLA Respiratory exam: PRESENT: clear to auscultation sheri Cardiovascular exam: PRESENT: +S1, +S2 GI/Abdominal exam: PRESENT: soft Neurological exam: PRESENT: alert, CN II-XII grossly intact Skin exam: PRESENT: erythema, other - in the perineum Results Laboratory Results: 06/23/19 04:56 06/23/19 04:56 06/15/19 06/15/19 06/15/19 20:05 20:05 21:38 Creatine Kinase Cancelled CK-MB (CK-2) Cancelled 3.12 Troponin I Cancelled 0.022 NT-Pro-B Natriuret Pep 06/15/19 06/16/19 06/16/19 21:38 03:27 03:27 Creatine Kinase 77 144 H CK-MB (CK-2) 10.50 H Troponin I 0.021 NT-Pro-B Natriuret Pep 812 H Impressions: Chest X-Ray 06/23/19 00:00 IMPRESSION: Resolving infiltrate in the right lung base. Assessment & Plan - Diagnosis (1) Pneumonia, unspecified organism Is this a current diagnosis for this admission?: Yes Plan: Improved (2) Metabolic acidosis Is this a current diagnosis for this admission?: Yes Plan: Resolved (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 Is this a current diagnosis for this admission?: Yes (4) Diarrhea Qualifiers: Diarrhea type: unspecified type Qualified Code(s): R19.7 - Diarrhea, unspecified Is this a current diagnosis for this admission?: Yes Plan: Improved (5) Bilateral cortical blindness Is this a current diagnosis for this admission?: Yes (6) Type 2 diabetes mellitus Qualifiers: Diabetes mellitus long term acute care registered nurse insulin use: unspecified long term acute care registered nurse insulin use status Diabetes mellitus complication status: with neurologic complications Diabetes mellitus complication detail: with polyneuropathy Qualified Code(s): E11.42 - Type 2 diabetes mellitus with diabetic polyneuropathy Is this a current diagnosis for this admission?: Yes (7) Hypokalemia Is this a current diagnosis for this admission?: Yes - Time Time Spent with patient: 25-34 minutes Level of Care: TELE Medications reviewed and adjusted accordingly: Yes
[2019-06-24] MEDS: NYSTATIN/TRIAMCIN CREAM 15 GM TP SCH (22:36)
[2019-06-24] MEDS: ATORVASTATIN CALCIUM 80 MG TABLET PO SCH (22:37)
[2019-06-25] MEDS: INSULIN LISPRO 100 UNIT/ML 3 ML VIAL SUBCUT SCH ×4 (09:55→22:22)
[2019-06-25] MEDS: HYDRALAZINE HCL 50 MG TABLET PO SCH ×2 (09:57→17:17)
[2019-06-25] MEDS: METOPROLOL SUCCINATE 50 MG TAB.SR.24H PO SCH (09:57)
[2019-06-25] MEDS: CLOPIDOGREL BISULFATE 75 MG TABLET PO SCH (09:57)
[2019-06-25] MEDS: VALSARTAN 160 MG TABLET PO SCH (09:57)
[2019-06-25] MEDS: AMLODIPINE BESYLATE 10 MG TABLET PO SCH (09:58)
[2019-06-25] MEDS: POTASSIUM CHLORIDE 10 MEQ TABLET.ER PO SCH ×2 (09:58→22:28)
[2019-06-25] MEDS: METFORMIN HCL 500 MG TABLET PO SCH (09:58)
[2019-06-25] MEDS: OXCARBAZEPINE 150 MG TABLET PO SCH ×2 (09:59→22:28)
[2019-06-25] MEDS: GLIPIZIDE XL 5 MG TAB.ER.24 PO SCH (09:59)
[2019-06-25] MEDS: NYSTATIN/TRIAMCIN CREAM 15 GM TP SCH ×4 (10:00→22:29)
[2019-06-25] MEDS: ENOXAPARIN SODIUM INJ 40 MG/0.4 ML DISP.SYRIN SUBCUT SCH (10:00)
[2019-06-25] MEDS: NORMAL SALINE 1000 ML 1,000 ML IV PRN ×2 (13:43)
[2019-06-25] MEDS: GUAIFENESIN SYRP 200 MG/10 ML UDC PO PRN (20:44)
[2019-06-25] MEDS: ATORVASTATIN CALCIUM 80 MG TABLET PO SCH (22:28)
[2019-06-26] MEDS: INSULIN LISPRO 100 UNIT/ML 3 ML VIAL SUBCUT SCH ×4 (08:19→22:17)
[2019-06-26] MEDS: NYSTATIN/TRIAMCIN CREAM 15 GM TP SCH ×4 (10:13→22:33)
[2019-06-26] MEDS: GLIPIZIDE XL 5 MG TAB.ER.24 PO SCH (10:13)
[2019-06-26] MEDS: OXCARBAZEPINE 150 MG TABLET PO SCH ×2 (10:13→22:32)
[2019-06-26] MEDS: HYDRALAZINE HCL 50 MG TABLET PO SCH ×2 (10:14→17:20)
[2019-06-26] MEDS: METOPROLOL SUCCINATE 50 MG TAB.SR.24H PO SCH (10:14)
[2019-06-26] MEDS: CLOPIDOGREL BISULFATE 75 MG TABLET PO SCH (10:14)
[2019-06-26] MEDS: VALSARTAN 160 MG TABLET PO SCH (10:14)
[2019-06-26] MEDS: POTASSIUM CHLORIDE 10 MEQ TABLET.ER PO SCH ×2 (10:14→22:32)
[2019-06-26] MEDS: METFORMIN HCL 500 MG TABLET PO SCH (10:14)
[2019-06-26] MEDS: AMLODIPINE BESYLATE 10 MG TABLET PO SCH (10:14)
[2019-06-26] MEDS: ENOXAPARIN SODIUM INJ 40 MG/0.4 ML DISP.SYRIN SUBCUT SCH (10:15)
[2019-06-26] MEDS: NORMAL SALINE 1000 ML 1,000 ML IV PRN ×2 (10:19→22:33)
--- NOTE | 2019-06-26 22:09 | PDOC PROGRESS REPORT ---
Subjective Progress Note for:: 06/25/19 Subjective:: Patient reported improvement in her breathing. No chest pain or coughing. No fever or chills. No nausea, vomiting, or abdominal pain. Reason For Visit: PNEUMONIA Physical Exam Vital Signs: Temp Pulse Resp BP Pulse Ox 96.9 F L 84 18 148/80 H 95 06/25/19 16:00 06/25/19 16:00 06/25/19 16:00 06/25/19 16:00 06/25/19 16:00 Intake & Output 06/24/19 06/25/19 06/26/19 06:59 06:59 06:59 Intake Total 2370 3318 1500 Balance 2370 3318 1500 Weight 70.8 kg 72.4 kg General appearance: PRESENT: no acute distress, obese Head exam: PRESENT: atraumatic, normocephalic Respiratory exam: PRESENT: decreased breath sounds - at lung bases Cardiovascular exam: PRESENT: RRR. ABSENT: diastolic murmur, rubs, systolic murmur GI/Abdominal exam: PRESENT: normal bowel sounds, soft. ABSENT: distended, guarding, mass, organolmegaly, rebound, tenderness Extremities exam: PRESENT: right BKA Neurological exam: PRESENT: alert, awake, oriented to person, oriented to place, oriented to time, oriented to situation. ABSENT: CN II-XII grossly intact - bilateral blindness Psychiatric exam: PRESENT: appropriate affect, normal mood. ABSENT: homicidal ideation, suicidal ideation Skin exam: PRESENT: dry, warm Results Laboratory Results: 06/23/19 04:56 06/23/19 04:56 06/15/19 06/15/19 06/15/19 20:05 20:05 21:38 Creatine Kinase Cancelled CK-MB (CK-2) Cancelled 3.12 Troponin I Cancelled 0.022 NT-Pro-B Natriuret Pep 06/15/19 06/16/19 06/16/19 21:38 03:27 03:27 Creatine Kinase 77 144 H CK-MB (CK-2) 10.50 H Troponin I 0.021 NT-Pro-B Natriuret Pep 812 H Impressions: Chest X-Ray 06/23/19 00:00 IMPRESSION: Resolving infiltrate in the right lung base. Assessment & Plan - Diagnosis (1) Pneumonia, unspecified organism Is this a current diagnosis for this admission?: Yes Plan: Continue current supportive management. She is negative for COVID-19 test. (2) Type 2 diabetes mellitus Qualifiers: Diabetes mellitus [facility] insulin use: unspecified organic search lead insulin use status Diabetes mellitus complication status: with neurologic complications Diabetes mellitus complication detail: with polyneuropathy Qualified Code(s): E11.42 - Type 2 diabetes mellitus with diabetic polyneuropathy Is this a current diagnosis for this admission?: Yes Plan: Continue current medication management. (3) Hypertension Qualifiers: Hypertension type: essential hypertension Qualified Code(s): I10 - Essential (primary) hypertension Is this a current diagnosis for this admission?: Yes Plan: Continue current medication management. - Time Time Spent with patient: 25-34 minutes Level of Care: IMCU Medications reviewed and adjusted accordingly: Yes Anticipated discharge: Home with Homehealth Within: Other - Inpatient Certification Based on my medical assessment, after consideration of the patient's comorbidities, presenting symptoms, or acuity I expect that the services needed warrant INPATIENT care.: Yes I certify that my determination is in accordance with my understanding of Medicare's requirements for reasonable and necessary INPATIENT services [42 CFR 412.3e].: Yes Medical Necessity: Significant Comorbidiites Make Outpatient Treatment Too Risky, Need Close Monitoring Due to Risk of Patient Decompensation, Need For IV Fluids, Need For Continuous Telemetry Monitoring, Need for Nebulizer Therapy and Monitoring of Response, Risk of Complication if Not Cared For in Hospital, Risk of Diagnosis Which Will Require Inpatient Eval/Care/Monitoring Post Hospital Care: D/C Stonecutter Assistant Documentation - Plan Summary Plan Summary: Continue current medication management.
--- NOTE | 2019-06-26 22:12 | PDOC PROGRESS REPORT ---
Subjective Progress Note for:: 06/26/19 Subjective:: Patient denied any chest pain, difficulty with breathing or coughing. No fever or chills. No nausea, vomiting, or abdominal pain. Reason For Visit: PNEUMONIA Physical Exam Vital Signs: Temp Pulse Resp BP Pulse Ox 98.9 F 80 18 146/80 H 100 06/26/19 16:00 06/26/19 16:00 06/26/19 16:00 06/26/19 16:00 06/26/19 16:00 Intake & Output 06/25/19 06/26/19 06/27/19 06:59 06:59 06:59 Intake Total 3318 2650 520 Balance 3318 2650 520 Weight 72.4 kg 72.4 kg Physical Exam: General appearance: PRESENT: no acute distress, obese Head exam: PRESENT: atraumatic, normocephalic Respiratory exam: PRESENT: decreased breath sounds - at lung bases Cardiovascular exam: PRESENT: RRR. ABSENT: diastolic murmur, rubs, systolic murmur GI/Abdominal exam: PRESENT: normal bowel sounds, soft. ABSENT: distended, guarding, mass, organomegaly, rebound, tenderness Extremities exam: PRESENT: right BKA Neurological exam: PRESENT: alert, awake, oriented to person, oriented to place, oriented to time, oriented to situation. ABSENT: CN II-XII grossly intact - bilateral blindness Psychiatric exam: PRESENT: appropriate affect, normal mood. ABSENT: homicidal ideation, suicidal ideation Skin exam: PRESENT: dry, warm Results Laboratory Results: 06/23/19 04:56 06/23/19 04:56 06/15/19 06/15/19 06/15/19 20:05 20:05 21:38 Creatine Kinase Cancelled CK-MB (CK-2) Cancelled 3.12 Troponin I Cancelled 0.022 NT-Pro-B Natriuret Pep 06/15/19 06/16/19 06/16/19 21:38 03:27 03:27 Creatine Kinase 77 144 H CK-MB (CK-2) 10.50 H Troponin I 0.021 NT-Pro-B Natriuret Pep 812 H Impressions: Chest X-Ray 06/23/19 00:00 IMPRESSION: Resolving infiltrate in the right lung base. Assessment & Plan - Diagnosis (1) Pneumonia, unspecified organism Is this a current diagnosis for this admission?: Yes (2) Type 2 diabetes mellitus Qualifiers: Diabetes mellitus group home insulin use: unspecified terminal worker insulin use status Diabetes mellitus complication status: with neurologic complications Diabetes mellitus complication detail: with polyneuropathy Qualified Code(s): E11.42 - Type 2 diabetes mellitus with diabetic polyneuropathy Is this a current diagnosis for this admission?: Yes (3) Hypertension Qualifiers: Hypertension type: essential hypertension Qualified Code(s): I10 - Essential (primary) hypertension Is this a current diagnosis for this admission?: Yes - Time Time Spent with patient: 25-34 minutes Level of Care: TELE Medications reviewed and adjusted accordingly: Yes Anticipated discharge: Home with Homehealth Within: within 72 hours - Inpatient Certification Based on my medical assessment, after consideration of the patient's comorbidities, presenting symptoms, or acuity I expect that the services needed warrant INPATIENT care.: Yes I certify that my determination is in accordance with my understanding of Medicare's requirements for reasonable and necessary INPATIENT services [42 CFR 412.3e].: Yes Medical Necessity: Significant Comorbidiites Make Outpatient Treatment Too Risky, Need Close Monitoring Due to Risk of Patient Decompensation, Risk of Complication if Not Cared For in Hospital, Risk of Diagnosis Which Will Require Inpatient Eval/Care/Monitoring Post Hospital Care: D/C Winch Driver Documentation - Plan Summary Plan Summary: Continue current medication management.
[2019-06-26] MEDS: ATORVASTATIN CALCIUM 80 MG TABLET PO SCH (22:32)
[2019-06-26] MEDS: GUAIFENESIN SYRP 200 MG/10 ML UDC PO PRN (22:36)
[2019-06-27] MEDS: GUAIFENESIN SYRP 200 MG/10 ML UDC PO PRN ×2 (05:47→18:51)
[2019-06-27] MEDS: INSULIN LISPRO 100 UNIT/ML 3 ML VIAL SUBCUT SCH ×4 (08:41→21:38)
[2019-06-27] MEDS: POTASSIUM CHLORIDE 10 MEQ TABLET.ER PO SCH ×2 (09:17→21:42)
[2019-06-27] MEDS: OXCARBAZEPINE 150 MG TABLET PO SCH ×2 (09:17→21:42)
[2019-06-27] MEDS: VALSARTAN 160 MG TABLET PO SCH (09:18)
[2019-06-27] MEDS: METOPROLOL SUCCINATE 50 MG TAB.SR.24H PO SCH (09:18)
[2019-06-27] MEDS: HYDRALAZINE HCL 50 MG TABLET PO SCH ×2 (09:19→18:50)
[2019-06-27] MEDS: METFORMIN HCL 500 MG TABLET PO SCH (09:19)
[2019-06-27] MEDS: GLIPIZIDE XL 5 MG TAB.ER.24 PO SCH (09:19)
[2019-06-27] MEDS: AMLODIPINE BESYLATE 10 MG TABLET PO SCH (09:19)
[2019-06-27] MEDS: CLOPIDOGREL BISULFATE 75 MG TABLET PO SCH (09:19)
[2019-06-27] MEDS: ENOXAPARIN SODIUM INJ 40 MG/0.4 ML DISP.SYRIN SUBCUT SCH (09:20)
[2019-06-27] MEDS: NORMAL SALINE 1000 ML 1,000 ML IV PRN ×2 (10:29→19:53)
[2019-06-27] MEDS: NYSTATIN/TRIAMCIN CREAM 15 GM TP SCH ×4 (10:35→21:49)
[2019-06-27] MEDS: CLOBETASOL PROPIONATE 0.05% OINTMENT 15 GM TP SCH (17:15)
--- NOTE | 2019-06-27 18:54 | PDOC PROGRESS REPORT ---
Subjective Progress Note for:: 06/27/19 Subjective:: Patient seen by the bedside, she has perineal rash Reason For Visit: PNEUMONIA Physical Exam Vital Signs: Temp Pulse Resp BP Pulse Ox 98.0 F 71 17 141/87 H 94 06/27/19 16:13 06/27/19 16:13 06/27/19 16:13 06/27/19 16:13 06/27/19 16:13 Intake & Output 06/26/19 06/27/19 06/28/19 06:59 06:59 06:59 Intake Total 2650 1720 1720 Balance 2650 1720 1720 Weight 72.4 kg 72.4 kg General appearance: PRESENT: no acute distress Eye exam: PRESENT: PERRLA Respiratory exam: PRESENT: clear to auscultation sheri Cardiovascular exam: PRESENT: +S1, +S2 GI/Abdominal exam: PRESENT: soft Results Laboratory Results: 06/23/19 04:56 06/23/19 04:56 06/15/19 06/15/19 06/15/19 20:05 20:05 21:38 Creatine Kinase Cancelled CK-MB (CK-2) Cancelled 3.12 Troponin I Cancelled 0.022 NT-Pro-B Natriuret Pep 06/15/19 06/16/19 06/16/19 21:38 03:27 03:27 Creatine Kinase 77 144 H CK-MB (CK-2) 10.50 H Troponin I 0.021 NT-Pro-B Natriuret Pep 812 H Impressions: Chest X-Ray 06/23/19 00:00 IMPRESSION: Resolving infiltrate in the right lung base. 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 Is this a current diagnosis for this admission?: Yes (4) Diarrhea Qualifiers: Diarrhea type: unspecified type Qualified Code(s): R19.7 - Diarrhea, unspecified Is this a current diagnosis for this admission?: Yes (5) Bilateral cortical blindness Is this a current diagnosis for this admission?: Yes (6) Type 2 diabetes mellitus Qualifiers: Diabetes mellitus skilled nursing insulin use: 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
[2019-06-27] MEDS: ATORVASTATIN CALCIUM 80 MG TABLET PO SCH (21:42)
[2019-06-28] MEDS: NORMAL SALINE 1000 ML 1,000 ML IV PRN (07:15)
[2019-06-28] MEDS: INSULIN LISPRO 100 UNIT/ML 3 ML VIAL SUBCUT SCH ×4 (07:25→21:54)
[2019-06-28] MEDS: VALSARTAN 160 MG TABLET PO SCH (09:52)
[2019-06-28] MEDS: GLIPIZIDE XL 5 MG TAB.ER.24 PO SCH (09:53)
[2019-06-28] MEDS: OXCARBAZEPINE 150 MG TABLET PO SCH ×2 (09:53→21:59)
[2019-06-28] MEDS: METOPROLOL SUCCINATE 50 MG TAB.SR.24H PO SCH (09:53)
[2019-06-28] MEDS: POTASSIUM CHLORIDE 10 MEQ TABLET.ER PO SCH ×2 (09:54→21:58)
[2019-06-28] MEDS: AMLODIPINE BESYLATE 10 MG TABLET PO SCH (09:54)
[2019-06-28] MEDS: HYDRALAZINE HCL 50 MG TABLET PO SCH ×2 (09:54→17:32)
[2019-06-28] MEDS: CLOPIDOGREL BISULFATE 75 MG TABLET PO SCH (09:55)
[2019-06-28] MEDS: ENOXAPARIN SODIUM INJ 40 MG/0.4 ML DISP.SYRIN SUBCUT SCH (09:55)
[2019-06-28] MEDS: METFORMIN HCL 500 MG TABLET PO SCH (09:55)
[2019-06-28] MEDS: CLOBETASOL PROPIONATE 0.05% OINTMENT 15 GM TP SCH ×2 (10:00→17:31)
[2019-06-28] MEDS: NYSTATIN/TRIAMCIN CREAM 15 GM TP SCH ×4 (10:00→21:58)
--- NOTE | 2019-06-28 18:53 | PDOC PROGRESS REPORT ---
Subjective Progress Note for:: 06/28/19 Subjective:: Patient improving discharge home in a.m. Reason For Visit: PNEUMONIA Physical Exam Vital Signs: Temp Pulse Resp BP Pulse Ox 98.0 F 83 16 155/74 H 93 06/28/19 16:00 06/28/19 16:00 06/28/19 16:00 06/28/19 16:00 06/28/19 16:00 Intake & Output 06/27/19 06/28/19 06/29/19 06:59 06:59 06:59 Intake Total 1720 3318 1880 Balance 1720 3318 1880 Weight 72.4 kg 72.5 kg General appearance: PRESENT: no acute distress Eye exam: PRESENT: PERRLA Respiratory exam: PRESENT: clear to auscultation sheri Cardiovascular exam: PRESENT: +S1, +S2 GI/Abdominal exam: PRESENT: soft Neurological exam: PRESENT: alert Results Laboratory Results: 06/23/19 04:56 06/23/19 04:56 06/15/19 06/15/19 06/15/19 20:05 20:05 21:38 Creatine Kinase Cancelled CK-MB (CK-2) Cancelled 3.12 Troponin I Cancelled 0.022 NT-Pro-B Natriuret Pep 06/15/19 06/16/19 06/16/19 21:38 03:27 03:27 Creatine Kinase 77 144 H CK-MB (CK-2) 10.50 H Troponin I 0.021 NT-Pro-B Natriuret Pep 812 H Impressions: Chest X-Ray 06/23/19 00:00 IMPRESSION: Resolving infiltrate in the right lung base. 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
[2019-06-28] MEDS: GUAIFENESIN SYRP 200 MG/10 ML UDC PO PRN (19:48)
[2019-06-28] MEDS: ATORVASTATIN CALCIUM 80 MG TABLET PO SCH (21:57)
[2019-06-29] MEDS: INSULIN LISPRO 100 UNIT/ML 3 ML VIAL SUBCUT SCH ×2 (08:00→13:06)
[2019-06-29] MEDS: NYSTATIN/TRIAMCIN CREAM 15 GM TP SCH ×2 (10:00→13:39)
[2019-06-29] MEDS: OXCARBAZEPINE 150 MG TABLET PO SCH (10:00)
[2019-06-29] MEDS: AMLODIPINE BESYLATE 10 MG TABLET PO SCH (10:00)
[2019-06-29] MEDS: METFORMIN HCL 500 MG TABLET PO SCH (10:00)
[2019-06-29] MEDS: ENOXAPARIN SODIUM INJ 40 MG/0.4 ML DISP.SYRIN SUBCUT SCH (10:00)
[2019-06-29] MEDS: CLOPIDOGREL BISULFATE 75 MG TABLET PO SCH (10:00)
[2019-06-29] MEDS: METOPROLOL SUCCINATE 50 MG TAB.SR.24H PO SCH (10:00)
[2019-06-29] MEDS: GLIPIZIDE XL 5 MG TAB.ER.24 PO SCH (10:00)
[2019-06-29] MEDS: CLOBETASOL PROPIONATE 0.05% OINTMENT 15 GM TP SCH (10:00)
[2019-06-29] MEDS: HYDRALAZINE HCL 50 MG TABLET PO SCH (10:00)
[2019-06-29] MEDS: POTASSIUM CHLORIDE 10 MEQ TABLET.ER PO SCH (10:00)
[2019-06-29] MEDS: VALSARTAN 160 MG TABLET PO SCH (10:16)
[2019-06-29 12:19] VITALS: BP 140/90
--- NOTE | 2019-06-29 16:45 | PDOC DISCHARGE SUMMARY ---
Impression - Admit/DC Date/PCP Admission Date/Primary Care Provider: 06/15/19 23:01 JERZY GAINES MD Discharge Date: 06/29/19 - Discharge Diagnosis (1) Pneumonia, unspecified organism Is this a current diagnosis for this admission?: Yes (2) Metabolic acidosis Is this a current diagnosis for this admission?: Yes (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 Is this a current diagnosis for this admission?: Yes (4) Diarrhea Is this a current diagnosis for this admission?: Yes (5) Bilateral cortical blindness Is this a current diagnosis for this admission?: Yes (6) Type 2 diabetes mellitus Is this a current diagnosis for this admission?: Yes (7) Hypokalemia Is this a current diagnosis for this admission?: Yes (8) Perineal rash Is this a current diagnosis for this admission?: Yes (9) Enterocolitis Is this a current diagnosis for this admission?: Yes - Additional Information Discharge Diet: As Tolerated Discharge Activity: Activity As Tolerated, Balance Activity w/Rest Referrals: JERZY GAINES MD [Primary Care Provider] - 07/05/19 10:00 am Prescriptions: Metformin HCl [Glucophage 500 mg Tablet] 1,000 mg PO DAILY #90 tablet Nystatin/Triamcin [Mycolog-II Cream 15 gm] 1 applic TP QID #1 tube Clobetasol Propionate [Temovate 0.05% Ointment 15 gm] 1 applic TP BID #1 tube Home Medications: Amlodipine Besylate [Norvasc 10 mg Tablet] 10 mg PO DAILY 12/31/17 Hydralazine HCl 50 mg PO BID 12/31/17 Metoprolol Succinate [Toprol XL 200 mg Tablet] 200 mg PO DAILY 12/31/17 Atorvastatin Calcium [Lipitor 80 mg Tablet] 80 mg PO QHS #90 tablet 01/06/18 Clopidogrel Bisulfate [Plavix 75 mg Tablet] 75 mg PO DAILY 06/16/19 Doxepin HCl [Silenor] 6 mg PO QHS 06/16/19 Empagliflozin [Jardiance] 25 mg PO DAILY 06/16/19 Glipizide [Glipizide Xl] 10 mg PO DAILY 06/16/19 Metformin HCl [Metformin HCl ER] 500 mg PO DAILY 06/16/19 Oxcarbazepine 900 mg PO BID 06/16/19 Valsartan 320 mg PO DAILY 06/16/19 Clobetasol Propionate [Temovate 0.05% Ointment 15 gm] 1 applic TP BID #1 tube 06/28/19 Metformin HCl [Glucophage 500 mg Tablet] 1,000 mg PO DAILY #90 tablet 06/28/19 Nystatin/Triamcin [Mycolog-II Cream 15 gm] 1 applic TP QID #1 tube 06/28/19 History of Present Illiness History of Present Illness: KRISTINE HERNANDEZ is a 59 year old female, 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 Chest x-ray that was done in the ER suggest pneumonia she was found to have metabolic acidosis ABG on ambient air, pH 7.3, PCO2 22.3 bicarbonate 10.7, PO2 63.4.There was lactic acidosis as well demonstrated Hospital Course Hospital Course: Patient was admitted for the management of pneumonia, severe enterocolitis with diarrhea, she was initially isolated in the COVID floor,Treated empirically with IV antibiotic, the stool study negative for C. difficile. She also developed perineal rash, this was managed topically with combination antifungal/corticosteroid cream, The coronavirus test was negative patient ultimately was transferred to medical floor, she responded to treatment she feels much better Physical Exam Vital Signs: Temp Pulse Resp BP Pulse Ox 98.0 F 72 20 140/90 H 98 06/29/19 12:01 06/29/19 12:01 06/29/19 12:01 06/29/19 12:01 06/29/19 12:01 Intake & Output 06/28/19 06/29/19 06/30/19 06:59 06:59 06:59 Intake Total 3318 2188 Balance 3318 2188 Weight 72.5 kg 72.5 kg General appearance: PRESENT: no acute distress Eye exam: PRESENT: PERRLA Respiratory exam: PRESENT: clear to auscultation sheri Cardiovascular exam: PRESENT: +S1, +S2 GI/Abdominal exam: PRESENT: soft Neurological exam: PRESENT: alert Results Laboratory Results: WBC 9.1 10^3/uL (4.0-10.5) 06/23/19 04:56 RBC 4.07 10^6/uL (3.72-5.28) 06/23/19 04:56 Hgb 10.9 g/dL (12.0-15.5) L 06/23/19 04:56 Hct 32.5 % (36.0-47.0) L 06/23/19 04:56 MCV 80 fl (80-97) 06/23/19 04:56 MCH 26.7 pg (27.0-33.4) L 06/23/19 04:56 MCHC 33.5 g/dL (32.0-36.0) 06/23/19 04:56 RDW 14.7 % (11.5-14.0) H 06/23/19 04:56 Plt Count 275 10^3/uL (150-450) 06/23/19 04:56 Lymph % (Auto) 24.8 % (13-45) 06/23/19 04:56 [place]aves % (Auto) 10.1 % (3-13) 06/23/19 04:56 Eos % (Auto) 2.9 % (0-6) 06/23/19 04:56 Baso % (Auto) 0.5 % (0-2) 06/23/19 04:56 Absolute Neuts (auto) 5.6 10^3/uL (1.7-8.2) 06/23/19 04:56 Absolute Lymphs (auto) 2.3 10^3/uL (0.5-4.7) 06/23/19 04:56 Absolute Monos (auto) 0.9 10^3/uL (0.1-1.4) 06/23/19 04:56 Absolute Eos (auto) 0.3 10^3/uL (0.0-0.6) 06/23/19 04:56 Absolute Basos (auto) 0.0 10^3/uL (0.0-0.2) 06/23/19 04:56 Total Counted 100 06/18/19 05:44 Seg Neutrophils % 61.7 % (42-78) 06/23/19 04:56 Seg Neuts % (Manual) 76 % (42-78) 06/18/19 05:44 Band Neutrophils % 2 % (3-5) L 06/18/19 05:44 Lymphocytes % (Manual) 19 % (13-45) 06/18/19 05:44 Atypical Lymphs % 3 % (0) 06/15/19 20:05 Monocytes % (Manual) 3 % (3-13) 06/18/19 05:44 Eosinophils % (Manual) 0 % (0-6) 06/18/19 05:44 Basophils % (Manual) 0 % (0-2) 06/18/19 05:44 Abs Neuts (Manual) 13.7 10^3/uL (1.7-8.2) H 06/18/19 05:44 Abs Lymphs (Manual) 3.3 10^3/uL (0.5-4.7) 06/18/19 05:44 Abs Monocytes (Manual) 0.5 10^3/uL (0.1-1.4) 06/18/19 05:44 Absolute Eos (Manual) 0.0 10^3/uL (0.0-0.6) 06/18/19 05:44 Abs Basophils (Manual) 0.0 10^3/uL (0.0-0.2) 06/18/19 05:44 Toxic Granulation 1+ 06/18/19 05:44 Platelet Comment ADEQUATE 06/18/19 05:44 Hypochromasia SLIGHT 06/17/19 05:35 Poikilocytosis 1+ 06/18/19 05:44 Anisocytosis SLIGHT 06/18/19 05:44 Ovalocytes SLIGHT 06/18/19 05:44 Madelin Cells 1+ 06/18/19 05:44 Carbonic Acid 0.67 mmol/L (1.05-1.35) L 06/16/19 03:45 HCO3/H2CO3 Ratio 15:1 06/16/19 03:45 ABG pH 7.30 (7.35-7.45) L 06/16/19 03:45 ABG pCO2 22.3 mmHg (35-45) L 06/16/19 03:45 ABG pO2 63.4 mmHg (80-100) L 06/16/19 03:45 ABG HCO3 10.7 mmol/L (20-24) L 06/16/19 03:45 ABG Total CO2 11.4 mmol/L (21-25) L 06/16/19 03:45 ABG O2 Saturation 90.7 % (94-98) L 06/16/19 03:45 ABG Base Excess -13.7 mmol/L 06/16/19 03:45 VBG pH 7.27 (7.30-7.42) L 06/15/19 21:38 VBG pCO2 33.6 mmHg (35-63) L 06/15/19 21:38 VBG HCO3 15.1 mmol/L (20-32) L 06/15/19 21:38 VBG Base Excess -10.7 mmol/L 06/15/19 21:38 FiO2 21% 06/16/19 03:45 Sodium 137.3 mmol/L (137-145) 06/23/19 04:56 Potassium 4.3 mmol/L (3.6-5.0) 06/23/19 04:56 Chloride 110 mmol/L (98-107) H 06/23/19 04:56 Carbon Dioxide 23 mmol/L (22-30) 06/23/19 04:56 Anion Gap 4 (5-19) L 06/23/19 04:56 BUN 4 mg/dL (7-20) L 06/23/19 04:56 Creatinine 0.44 mg/dL (0.52-1.25) L 06/23/19 04:56 Est GFR ( Amer) > 60 (>60) 06/23/19 04:56 Est GFR (Non-Af Amer) Cancelled 06/15/19 20:05 Est GFR (MDRD) Non-Af > 60 (>60) 06/23/19 04:56 Glucose 116 mg/dL (75-110) H 06/23/19 04:56 POC Glucose 129 mg/dL (70-110) H 06/29/19 12:02 Hemoglobin A1c % 7.5 % (4.7-6.0) H 06/17/19 05:35 Lactic Acid 1.5 mmol/L (0.7-2.1) 06/16/19 03:27 Calcium 8.6 mg/dL (8.4-10.2) 06/23/19 04:56 Magnesium 2.0 mg/dL (1.6-2.3) 06/15/19 21:38 Total Bilirubin 0.2 mg/dL (0.2-1.3) 06/23/19 04:56 Direct Bilirubin 0.0 mg/dL (0.0-0.4) 06/23/19 04:56 Neonat Total Bilirubin Not Reportable 06/23/19 04:56 Neonat Direct Bilirubin Not Reportable 06/23/19 04:56 Neonat Indirect Bili Not Reportable 06/23/19 04:56 AST 26 U/L (14-36) 06/23/19 04:56 ALT 25 U/L (<35) 06/23/19 04:56 Alkaline Phosphatase 83 U/L (38-126) 06/23/19 04:56 Creatine Kinase 144 U/L (30-135) H 06/16/19 03:27 CK-MB (CK-2) 10.50 ng/mL (<4.55) H 06/16/19 03:27 Troponin I 0.021 ng/mL 06/16/19 03:27 NT-Pro-B Natriuret Pep 812 pg/mL (<125) H 06/16/19 03:27 Total Protein 5.7 g/dL (6.3-8.2) L 06/23/19 04:56 Albumin 2.6 g/dL (3.5-5.0) L 06/23/19 04:56 EGFR Cancelled 06/15/19 20:05 Urine Color YELLOW 06/16/19 07:15 Urine Appearance SLIGHTLY-CLOUDY 06/16/19 07:15 Urine pH 5.0 (5.0-9.0) 06/16/19 07:15 Ur Specific [place] 1.023 06/16/19 07:15 Urine Protein NEGATIVE mg/dL (NEGATIVE) 06/16/19 07:15 Urine Glucose (UA) >=500 mg/dL (NEGATIVE) H 06/16/19 07:15 Urine Ketones 80 mg/dL (NEGATIVE) H 06/16/19 07:15 Urine Blood NEGATIVE (NEGATIVE) 06/16/19 07:15 Urine Nitrite NEGATIVE (NEGATIVE) 06/16/19 07:15 Urine Bilirubin NEGATIVE (NEGATIVE) 06/16/19 07:15 Urine Urobilinogen NEGATIVE mg/dL (<2.0) 06/16/19 07:15 Ur Leukocyte Esterase NEGATIVE (NEGATIVE) 06/16/19 07:15 Urine WBC (Auto) 1 /HPF 06/16/19 07:15 Urine RBC (Auto) 7 /HPF 06/16/19 07:15 Urine Bacteria (Auto) 2+ /HPF 06/16/19 07:15 Squamous Epi Cells Auto 3 /HPF 06/16/19 07:15 Urine Mucus (Auto) RARE /LPF 06/16/19 07:15 Urine Ascorbic Acid NEGATIVE (NEGATIVE) 06/16/19 07:15 Stl C. Difficile GDH Ag NEGATIVE (NEGATIVE) 06/16/19 16:50 Stl C.difficile Tox A&B NEGATIVE (NEGATIVE) 06/16/19 16:50 COVID-19 Source NASAL WASHING 06/15/19 21:00 COVID-19 (JOSIAH) Not Detected (Not Detect) 06/15/19 21:00 Influenza A (Rapid) NEGATIVE (NEGATIVE) 06/15/19 21:00 Influenza B (Rapid) NEGATIVE (NEGATIVE) 06/15/19 21:00 Group A Strep Rapid NEGATIVE (NEGATIVE) 06/15/19 21:00 06/15/19 06/15/19 06/16/19 20:05 21:38 03:27 CK-MB (CK-2) Cancelled 3.12 10.50 H Troponin I Cancelled 0.022 0.021 NT-Pro-B Natriuret Pep 812 H Impressions: Chest X-Ray 06/15/19 20:15 IMPRESSION: Patchy bibasilar airspace disease. Consider atelectasis or pneumonia to include aspiration. 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 copyright 2010 [employer]- All Rights Reserved Chest X-Ray 06/23/19 00:00 IMPRESSION: Resolving infiltrate in the right lung base. Stroke Is this a Stroke Patient?: No Acute Heart Failure - Is this a Heart Failure Patient?: No
== END 2019-06-29 13:46 | disposition home or self-care (01) | DRG 194 ==
LOC: ER 19:58 → EH 23:01 → 5 06-16 00:10 → 4N 06-25 11:40
PROVIDERS: ADMIT Internal Medicine; ATTEND Internal Medicine
DX: J18.9 Pneumonia, unspecified organism (principal); E87.2 Acidosis; E87.6 Hypokalemia; E11.42 Type 2 diabetes mellitus with diabetic polyneuropathy; K52.9 Noninfective gastroenteritis and colitis, unspecified; I10 Essential (primary) hypertension; R21 Rash and other nonspecific skin eruption; I69.398 Other sequelae of cerebral infarction; H47.612 Cortical blindness, left side of brain; H47.611 Cortical blindness, right side of brain; R00.0 Tachycardia, unspecified; Z89.611 Acquired absence of right leg above knee; Z03.818 Encounter for observation for suspected exposure to other biological agents ruled out; Z79.4 Long term (current) use of insulin; Z79.899 Other long term (current) drug therapy; Z23 Encounter for immunization; M06.9 Rheumatoid arthritis, unspecified
CPT/HCPCS: 36415; 36600; 71045; 80053; 81001; 82550; 82553; 82803; 82962; 83036; 83605; 83735; 83880; 84484; 85025; 87040; 87070; 87086; 87088; 87186; 87324; 87449; 87635; 87804; 87880; 90686; 93005; 93010; 99284; J0692; J0696; J1650; J1815; J1956; J3490; J7030; J7050; J7060